=== PATIENT | female | born 1940 | race Caucasian/White ===

== ENCOUNTER → 2022-10-06 10:55 | Outpatient (CLI) | payer MEDICARE, SELFPAY ==
[2022-10-06 18:41] LABS: Alanine Aminotransferase 20 U/L (12-78); Albumin Level 4.3 g/dl (3.5-5.0); Albumin/Globulin Ratio 1.5 (1.1-1.8); Alkaline Phosphatase 57 U/L (38-126); Anion Gap 13.7 mEq/L (5-15); Aspartate Amino Transferase 30 U/L (14-36); Bilirubin,Total 0.4 mg/dl (0.2-1.3); Blood Urea Nitrogen 13 mg/dl (7-17); Calcium 9.2 mg/dl (8.4-10.2); Carbon Dioxide 30 mmol/L (22.0-30.0); Chloride 101 mmol/L (98-107); Chol/HDL Ratio 2.6 (1-3.5); Cholesterol 153 mg/dl (140-200); Estimated Glomerular Filt Rate 96 ml/min (>60); GFR (African American) 116 ML/MIN (>60); Globulin 2.8 g/dL (1.3-3.2); Glucose 90 mg/dl (74-100); HDL Cholesterol 58 mg/dl (40-60); Potassium 3.7 mmoL/L (3.5-5.1); Sodium 141 mmol/L (136-145); Total Protein,Serum 7.1 g/dl (6.3-8.2); Triglycerides 100 mg/dl (30-150); VLDL Cholesterol 20 mg/dL (0-40)
[2022-10-06 18:43] LABS: Creatinine,Urine Random 14 mg/dL (Not Estab.)
[2022-10-06 18:50] LABS: Microalbumin < 6.000 mg/L (0-16.7)
[2022-10-06 18:52] LABS: Basophils # 0.1 K/mm3 (0-0.2); Direct LDL Cholesterol 66.62 mg/dL (100-129); Eosinophils # 0.2 K/mm3 (0.0-0.4); Eosinophils % 4.6 % (0.1-12.0); Hematocrit 40.9 % (37.0-47.0); Lymphocytes # 1.1 K/mm3 (0.7-4.5); Mean Corpuscular HGB Conc 31.7 g/dL (31.8-35.4); Mean Corpuscular Hemoglobin 29.1 pg (27.0-31.2); Mean Corpuscular Volume 91.6 fl (81-99); Mean Platelet Volume 9.1 fl (7.4-10.4); Monocytes # 0.3 K/mm3 (0.1-1.0); Monocytes % 5.7 % (1.7-9.3); Neutrophils # 3.4 K/mm3 (1.8-7.8); Neutrophils % 66.6 % (37.0-80.0); Platelet Count 312 K/mm3 (142-424); Red Blood Count 4.47 M/mm3 (4.20-5.40); Red Cell Distribution Width 13.9 % (11.5-17.5); White Blood Count 5.1 K/mm3 (4.8-10.8)
[2022-10-06 18:58] LABS: 25-OH Vitamin D, Total 51.1 ng/mL (30-100)
[2022-10-06 19:13] LABS: Thyroid Stimulating Hormone 2.18 uIU/mL (0.465-4.68)
[2022-10-06 19:32] LABS: Vitamin B12 958 pg/mL (239-931)
== END ==
PROVIDERS: PCP Nurse Practitioner; Visit Provider Nurse Practitioner
DX: E78.5 Hyperlipidemia, unspecified (principal); I10 Essential (primary) hypertension; K21.9 Gastro-esophageal reflux disease without esophagitis; N32.81 Overactive bladder; M81.0 Age-related osteoporosis without current pathological fracture
CPT/HCPCS: 80053; 80061; 82043; 82306; 82570; 82607; 84443; 85025

== ENCOUNTER → 2022-11-13 21:02 | Outpatient (CLI) | payer MEDICARE, SELFPAY | PROVIDERS: PCP Nurse Practitioner; Visit Provider Nurse Practitioner | DX: N30.01 Acute cystitis with hematuria (principal) | CPT/HCPCS: 87086 ==

== ENCOUNTER → 2022-11-27 06:47 | Outpatient (CLI) | payer MEDICARE, SELFPAY | PROVIDERS: PCP Nurse Practitioner; Visit Provider Nurse Practitioner | DX: N30.01 Acute cystitis with hematuria (principal); B96.89 Other specified bacterial agents as the cause of diseases classified elsewhere | CPT/HCPCS: 87086; 87088; 87186 ==

== ENCOUNTER → 2022-12-04 23:27 | Outpatient (CLI) | payer MEDICARE, SELFPAY | PROVIDERS: PCP Nurse Practitioner; Visit Provider Nurse Practitioner | DX: N10 Acute pyelonephritis (principal); B96.89 Other specified bacterial agents as the cause of diseases classified elsewhere | CPT/HCPCS: 87086; 87088; 87186 ==

== ENCOUNTER → 2022-12-18 19:28 | Outpatient (CLI) | payer MEDICARE, SELFPAY | PROVIDERS: PCP Nurse Practitioner; Visit Provider Nurse Practitioner | DX: R30.0 Dysuria (principal) | CPT/HCPCS: 87086 ==

== ENCOUNTER 2022-12-26 09:43 | Emergency (ER) | payer MEDICARE, SELFPAY ==
[2022-12-26 10:00] VITALS: BP 199/87; PULSE 77; RESP 18; TEMP 36.8; O2SAT 97; BMI 20.9
--- NOTE | 2022-12-26 10:09 | EXP.UTC ---
Discharge Plan Disposition Patient Disposition: Home, Self-Care Condition: Good Prescriptions Prescriptions: New amoxicillin-pot clavulanate 875-125 mg Tablet 1 tab PO Q12H 7 Days Qty: 14 0RF No Action cetirizine 10 mg tablet 10 mg PO DAILY Qty: 30 5RF doxepin 6 mg tablet 6 mg PO HS PRN (Reason: sleep) Qty: 30 0RF lorazepam 0.5 mg tablet 0.5 mg PO TID PRN Rx Instructions: take 1 tab every 8 hours as needed for anxiety. losartan-hydrochlorothiazide 50-12.5 mg tablet 1 tab PO DAILY omeprazole 20 mg capsule,delayed release(DR/EC) 20 mg PO DAILY cholecalciferol (vitamin D3) 25 mcg (1,000 unit) capsule 25 mcg PO DAILY ascorbate calcium (vitamin C) 500 mg tablet 500 mg PO DAILY cranberry extract 500 mg tablet 500 mg PO DAILY Rx Instructions: administer with meals omega-3 fatty acids 500 mg capsule 500 mg PO DAILY aydgmroe-ghariuv-svhi-lutein Tablet 1 tab PO DAILY Digestive Advantage Advanced 10 billion cell capsule PO alendronate 70 mg tablet 70 mg PO WEEKLY Qty: 4 5RF Rx Instructions: on Wednesdays oxybutynin chloride 5 mg tablet extended release 24hr 5 mg PO DAILY Qty: 90 1RF atorvastatin 10 mg tablet See Rx Instructions .ROUTE .COMPLEX Qty: 90 0RF Dose Instruction: TAKE 1 TABLET BY MOUTH AT BEDTIME Rx Instructions: TAKE 1 TABLET BY MOUTH AT BEDTIME Referrals Follow up/Referrals: Sarah Dumont APRN [Primary Care Provider] - See instructions Activity Restrictions/Add. Instructions Additional Instructions/Restrictions: Make sure to follow up with Urology for further evaluation and treatment Start oral Augmentin tomorrow you got a shot today in the [facility] Return if needed Straight to ER if any life threatening symptoms Clinical Impressions Clinical Impression: UTI (urinary tract infection) Qualifiers: Urinary tract infection type: site unspecified Hematuria presence: without hematuria Qualified Code(s): N39.0 - Urinary tract infection, site not specified Instructions Patient Instructions: Urinary Tract Infection, DI for Urinary Tract Infection (UTI), Amoxicillin and Clavulanic Acid Discharge ED Provider: Sol Tejeda [facility] HPI General Stated complaint: trouble urinating Time Seen by Provider: 12/26/22 10:09 History of Present Illness Provider Complaint: Patient states that she has frequent UTI and bladder infections States that she has been having pressure like feeling like she has to go and frequency and urgency States that she feels like it did when she has a UTI so she came in Related Data Home Medications Medication Instructions Recorded Confirmed L.acidoph, paracasei,B. lactis 10 cell PO 10/06/22 12/18/22 billion cell capsule (Digestive Advantage Advanced Probiotic) ascorbate calcium (vitamin C) 500 500 mg PO DAILY 10/06/22 12/18/22 mg tablet cholecalciferol (vitamin D3) 25 25 mcg PO DAILY 10/06/22 12/18/22 mcg (1,000 unit) capsule cranberry extract 500 mg tablet 500 mg PO DAILY 10/06/22 12/18/22 lorazepam 0.5 mg tablet 0.5 mg PO TID PRN 10/06/22 12/18/22 losartan 50 mg-hydrochlorothiazide 1 tab PO DAILY 10/06/22 12/18/22 12.5 mg tablet znoktpgw-sndovwj-kokq-lutein tablet 1 tab PO DAILY 10/06/22 12/18/22 omega-3 fatty acids 500 mg capsule 500 mg PO DAILY 10/06/22 12/18/22 omeprazole 20 mg capsule,delayed 20 mg PO DAILY 10/06/22 12/18/22 release Previous Rx's Medication Instructions Recorded alendronate 70 mg tablet 70 mg PO WEEKLY #4 tabs 10/06/22 oxybutynin chloride 5 mg 5 mg PO DAILY #90 tabs 11/03/22 tablet,extended release 24 hr cetirizine 10 mg tablet 10 mg PO DAILY #30 tabs 12/18/22 doxepin 6 mg tablet 6 mg PO HS PRN sleep #30 tabs 12/18/22 atorvastatin 10 mg tablet See Rx Instructions .Route 12/24/22 .COMPLEX #90 tabs amoxicillin 875 mg-potassium 1 tab PO Q12H 7 days #14 tabs 12/26/22 clavulanate 125 mg tablet Allergies Allerg
[2022-12-26 10:21] LABS: Apearance,Urine Clear (Clear); Color,Urine Yellow (Yellow); PH,Urine 7.5 (5.0-8.5); Specific Gravity, Urine 1.015 (1.005-1.030)
[2022-12-26 10:22] LABS: Bilirubin,Urine Negative (Negative); Blood, Urine Negative (Negative); Glucose,Urine (UA) 100 (Negative); Ketones,Urine Negative (Negative); Protein,Urine Negative (Negative); UTC Leukocyte Esterase,Urine Negative (Negative); UTC Nitrate,Urine Positive (Negative); Urobilinogen,Urine 0.2 EU/dl (0.2)
[2022-12-26 10:39] VITALS: BP 199/87; PULSE 77; RESP 18; TEMP 36.8; O2SAT 97
== END 2022-12-26 10:52 | disposition home or self-care (01) ==
PROVIDERS: Emergency Provider Nurse Practitioner; PCP Nurse Practitioner
DX: N39.0 Urinary tract infection, site not specified (principal)
CPT/HCPCS: 96372; 81003; 87086; 99212; 99214; G0463; J0696

== ENCOUNTER → 2023-01-06 23:29 | Outpatient (CLI) | payer MEDICARE, SELFPAY | PROVIDERS: PCP Nurse Practitioner; Visit Provider Nurse Practitioner | DX: N39.0 Urinary tract infection, site not specified (principal) | CPT/HCPCS: 87086 ==

== ENCOUNTER → 2023-01-12 13:04 | Outpatient (CLI) | payer MEDICARE, SELFPAY ==
--- NOTE | 2023-01-12 13:04 | US_ITS ---
FINAL REPORT CLINICAL HISTORY: recurrent UTI FINDINGS: Sonographic images were obtained of the urinary bladder. The bladder has a normal configuration. The bladder measures 3.7 x 4.6 x 6.3 cm and volume is 55.8 mL. Ureteral jets are visualized. No masses are seen. IMPRESSION: Unremarkable urinary bladder. Reviewed, Interpreted and Dictated by Bakari Fagan III, MD Transcribed by Elaine Alexander Authenticated and [facility]
--- NOTE | 2023-01-12 13:04 | US_ITS ---
FINAL REPORT TECHNIQUE: Ultrasound images of the kidneys were obtained. CLINICAL HISTORY: .recurrent utis FINDINGS: US RETROPERITONEAL The right kidney measures 8.6 cm in length. It is normal in echogenicity. There is no hydronephrosis. The left kidney measures 8.8 cm in length. It is normal in echogenicity. There is no hydronephrosis. The spleen measures 8.5 cm in length and is unremarkable. IMPRESSION: Unremarkable exam. Reviewed, Interpreted and Dictated by Bakari Fagan III, MD Transcribed by Elaine Alexander Authenticated and . [facility]
== END ==
PROVIDERS: PCP Nurse Practitioner; Visit Provider Nurse Practitioner
DX: N39.0 Urinary tract infection, site not specified (principal)
CPT/HCPCS: 76770; 76857

== ENCOUNTER → 2023-01-19 18:49 | Outpatient (CLI) | payer MEDICARE, SELFPAY | PROVIDERS: PCP Nurse Practitioner; Visit Provider Nurse Practitioner | DX: R30.0 Dysuria (principal) | CPT/HCPCS: 87086 ==

== ENCOUNTER → 2023-02-02 09:17 | Outpatient (CLI) | payer MEDICARE, SELFPAY | PROVIDERS: PCP Nurse Practitioner; Visit Provider Nurse Practitioner | DX: R30.0 Dysuria (principal) | CPT/HCPCS: 87086 ==

== ENCOUNTER → 2023-02-11 23:33 | Outpatient (CLI) | payer MEDICARE, SELFPAY | PROVIDERS: PCP Nurse Practitioner; Visit Provider Nurse Practitioner | DX: R39.198 Other difficulties with micturition (principal); R41.3 Other amnesia; B96.29 Other Escherichia coli [E. coli] as the cause of diseases classified elsewhere | CPT/HCPCS: 87086; 87088; 87186 ==

== ENCOUNTER → 2023-02-26 20:36 | Outpatient (CLI) | payer MEDICARE, SELFPAY | PROVIDERS: PCP Nurse Practitioner; Visit Provider Nurse Practitioner | DX: R30.0 Dysuria (principal) | CPT/HCPCS: 87086 ==

== ENCOUNTER → 2023-03-17 10:49 | Outpatient (CLI) | payer MEDICARE, SELFPAY ==
[2023-03-17 11:23] LABS: Basophils % 0.6 % (0.1-2.0); Eosinophils # 0.1 K/mm3 (0.0-0.4); Eosinophils % 2.3 % (0.1-12.0); Hematocrit 39.6 % (37.0-47.0); Lymphocytes # 1.2 K/mm3 (0.7-4.5); Lymphocytes % 22.7 % (10-50); Mean Corpuscular HGB Conc 32.8 g/dL (31.8-35.4); Mean Corpuscular Hemoglobin 28.6 pg (27.0-31.2); Mean Corpuscular Volume 87.2 fl (81-99); Mean Platelet Volume 8.1 fl (7.4-10.4); Monocytes # 0.3 K/mm3 (0.1-1.0); Monocytes % 5.3 % (1.7-9.3); Neutrophils # 3.7 K/mm3 (1.8-7.8); Neutrophils % 69.1 % (37.0-80.0); Platelet Count 244 K/mm3 (142-424); Red Blood Count 4.54 M/mm3 (4.20-5.40); Red Cell Distribution Width 13.4 % (11.5-17.5); White Blood Count 5.4 K/mm3 (4.8-10.8)
[2023-03-17 12:02] LABS: Alanine Aminotransferase 18 U/L (12-78); Albumin Level 4.1 g/dl (3.5-5.0); Albumin/Globulin Ratio 1.5 (1.1-1.8); Alkaline Phosphatase 47 U/L (38-126); Anion Gap 13.8 mEq/L (5-15); Aspartate Amino Transferase 28 U/L (14-36); Bilirubin,Total 0.6 mg/dl (0.2-1.3); Blood Urea Nitrogen 18 mg/dl (7-17); Calcium 9.7 mg/dl (8.4-10.2); Carbon Dioxide 29 mmol/L (22.0-30.0); Chloride 100 mmol/L (98-107); Estimated Glomerular Filt Rate 96 ml/min (>60); GFR (African American) 116 ML/MIN (>60); Globulin 2.7 g/dL (1.3-3.2); Glucose 97 mg/dl (74-100); Potassium 3.8 mmoL/L (3.5-5.1); Sodium 139 mmol/L (136-145); Total Protein,Serum 6.8 g/dl (6.3-8.2)
[2023-03-17 12:34] LABS: Thyroid Stimulating Hormone 1.38 uIU/mL (0.465-4.68)
[2023-03-17 13:09] LABS: Folate > 20.00 ng/mL; Vitamin B12 > 1000 pg/mL (239-931)
[2023-03-18 11:55] LABS: Rapid Plasma Reagin Ab Titer Non Reactive (NonRea<1:1)
== END ==
PROVIDERS: PCP Nurse Practitioner; Visit Provider Nurse Practitioner Family
DX: R41.3 Other amnesia (principal)
CPT/HCPCS: 36415; 80053; 82607; 82746; 84443; 85025; 86593

== ENCOUNTER → 2023-03-30 11:55 | Outpatient (CLI) | payer MEDICARE, SELFPAY ==
--- NOTE | 2023-03-30 11:55 | MR_ITS ---
FINAL REPORT CLINICAL HISTORY: memory loss COMPARISON: None FINDINGS: Multiplanar MR imaging of the brain was performed without contrast. There is mild age-appropriate atrophy. There are scattered foci of increased T2 signal in the cerebral white matter that have a nonspecific appearance but likely represent severe chronic ischemic/gliotic changes. Demyelination and changes of vasculitis could have a similar appearance. There is no evidence of intracranial hemorrhage or mass. No abnormal ventricular dilatation is identified. No abnormal extra-axial fluid collection is seen. No abnormality is seen on the diffusion weighted images. The posterior fossa and brainstem are unremarkable. Normal major vessel vascular flow voids are seen. IMPRESSION: Age-appropriate atrophy and severe chronic ischemic/gliotic changes. No acute intracranial abnormality. Reviewed, Interpreted and Dictated by Bakari Fagan III, MD Transcribed by Anca Watters Authenticated and [facility]
== END ==
PROVIDERS: PCP Nurse Practitioner; Visit Provider Nurse Practitioner Family
DX: R41.3 Other amnesia (principal)
CPT/HCPCS: 70551

== ENCOUNTER → 2023-04-01 10:55 | Outpatient (CLI) | payer MEDICARE, SELFPAY | PROVIDERS: PCP Nurse Practitioner; Visit Provider Nurse Practitioner | DX: R30.0 Dysuria (principal) ==

== ENCOUNTER → 2023-04-17 08:47 | Outpatient (CLI) | payer MEDICARE, SELFPAY | PROVIDERS: PCP Nurse Practitioner; Visit Provider Nurse Practitioner Family | DX: R41.3 Other amnesia (principal); G47.8 Other sleep disorders | CPT/HCPCS: 94762 ==

== ENCOUNTER 2023-06-02 21:00 | Emergency (ER) | payer MEDICARE, SELFPAY ==
[2023-06-02] VITALS (9 sets, daily range): BP systolic 152–223; BP diastolic 77–124; PULSE 72–85; RESP 16–22; TEMP 36.6–36.9; O2SAT 96–100; BMI 20.9
--- NOTE | 2023-06-02 21:23 | XR_ITS ---
PROCEDURE INFORMATION: Exam: XR Chest Exam date and time: 06/02/2023 9:29 PM Age: 82 years old Clinical indication: Orthopnea (sob when lying down) and other: HTN; Additional info: HTN emergency TECHNIQUE: Imaging protocol: Radiologic exam of the chest. Views: 1 view. COMPARISON: No relevant prior studies available. FINDINGS: Lungs: There is a calcified granuloma projecting over the left lower lung. Pleural spaces: Unremarkable. No pleural effusion. No pneumothorax. Heart/Mediastinum: Unremarkable. No cardiomegaly. Bones/joints: Unremarkable. IMPRESSION: No dense parenchymal consolidation, pleural effusion, or pneumothorax.
--- NOTE | 2023-06-02 21:25 | HMH.EDGENADL ---
Discharge Plan Disposition Patient Disposition: Home, Self-Care Condition: Good Chief Complaint: Recheck/Abnormal Lab/Rx Prescriptions Prescriptions: No Action cetirizine 10 mg tablet 10 mg PO DAILY Qty: 30 5RF donepezil 5 mg tablet 5 mg PO DAILY Qty: 30 2RF mecobalamin (vitamin B12) 1,000 mcg tablet,chewable 1,000 mcg PO DAILY Centrum Silver Women 8 mg iron-400 mcg-300 mcg tablet 1 tab PO DAILY losartan-hydrochlorothiazide 50-12.5 mg tablet 1 tab PO DAILY omeprazole 20 mg capsule,delayed release(DR/EC) 20 mg PO DAILY cholecalciferol (vitamin D3) 25 mcg (1,000 unit) capsule 25 mcg PO DAILY ascorbate calcium (vitamin C) 500 mg tablet 500 mg PO DAILY cranberry extract 500 mg tablet 500 mg PO DAILY Rx Instructions: administer with meals lorazepam 0.5 mg tablet See Rx Instructions .ROUTE .COMPLEX PRN (Reason: anxiety) Qty: 45 3RF Rx Instructions: 1 during the day, 1-2 at bedtime prn sleep/anxiety oxybutynin chloride 5 mg tablet extended release 24hr 5 mg PO DAILY Qty: 90 1RF fluticasone propionate 50 mcg/actuation spray,suspension 1 spray intranasal DAILY Qty: 16 2RF Rx Instructions: administer into each nostril atorvastatin 10 mg tablet See Rx Instructions .ROUTE .COMPLEX Qty: 90 0RF Dose Instruction: TAKE 1 TABLET BY MOUTH AT BEDTIME Rx Instructions: TAKE 1 TABLET BY MOUTH AT BEDTIME Referrals Follow up/Referrals: Sarah Dumont APRN [Primary Care Provider] - See instructions Clinical Impressions Clinical Impression: Essential hypertension Instructions Patient Instructions: Essential Hypertension Discharge ED Provider: Carolina Hein General Adult HPI General Chief complaint: Recheck/Abnormal Lab/Rx Stated complaint: BP IS GOING UP AND DOWN Time Seen by Provider: 06/02/23 21:09 History of Present Illness HPI narrative: Patient has a PMHx significant for HTN who presents to the ED with uncontrolled hypertension. Patient notes that she has a history of hypertension and was previously on losartan hydrochlorothiazide 50/12.5 mg, but for the past year, she has been checking her blood pressure multiple times a day and she has always been normotensive, thus she has not taken any of her medications in over a year. Today, patient noted that she was checking her blood pressure and noted that her systolics were greater than 200. Patient checked her blood pressure every 30 minutes with no improvement, that she decided come to the ED. Patient describes any chest pain, shortness of breath, headache, vision changes. Patient notes that she has an appointment with her PCP tomorrow morning Related Data Home Medications Medication Instructions Recorded Confirmed ascorbate calcium (vitamin C) 500 500 mg PO DAILY 10/06/22 05/28/23 mg tablet cholecalciferol (vitamin D3) 25 25 mcg PO DAILY 10/06/22 05/28/23 mcg (1,000 unit) capsule cranberry extract 500 mg tablet 500 mg PO DAILY 10/06/22 05/28/23 losartan 50 mg-hydrochlorothiazide 1 tab PO DAILY 10/06/22 05/28/23 12.5 mg tablet omeprazole 20 mg capsule,delayed 20 mg PO DAILY 10/06/22 05/28/23 release mecobalamin (vitamin B12) 1,000 1,000 mcg PO DAILY 03/17/23 05/28/23 mcg chewable tablet odhklqee-vjlr-miwl 8 mg-folic 400 1 tab PO DAILY 03/17/23 05/28/23 mcg-K 50 mcg-lutein 300 mcg tablet (Centrum Silver Women) Previous Rx's Medication Instructions Recorded cetirizine 10 mg tablet 10 mg PO DAILY #30 tabs 12/18/22 donepezil 5 mg tablet 5 mg PO DAILY #30 tabs 02/02/23 atorvastatin 10 mg tablet See Rx Instructions .Route 04/01/23 .COMPLEX #90 tabs lorazepam 0.5 mg tablet See Rx Instructions .Route 04/03/23 .COMPLEX PRN anxiety #45 tabs fluticasone propionate 50 1 spray intranasal DAILY #16 grams 05/04/23 mcg/actuation nasal spray,suspension oxybutynin chloride 5 mg 5 mg PO DAILY #90 tabs 05/04/23 tablet,extended release 24 hr
--- NOTE | 2023-06-02 21:31 | ECG_ITS ---
APPROVED REPORT Exam: Resting ECG HR:68 bpm ECG Measurements Heart Rate [address] 188 P 38 QRSd 84 QRS 16 QT 389 T 63 QTc 407 Conclusion SINUS RHYTHM NORMAL ECG UNCONFIRMED REPORT Electronically signed by : Parvez Treviño MD 06/04/2023 20:04:32
[2023-06-02 21:37] LABS: Chloride 104 mmol/L (98-107); Potassium 3.8 mmoL/L (3.5-5.1); Sodium 140 mmol/L (136-145)
[2023-06-02 21:38] LABS: Basophils % 0.5 % (0.1-2.0); Eosinophils # 0.2 K/mm3 (0.0-0.4); Eosinophils % 2.3 % (0.1-12.0); Hematocrit 42.4 % (37.0-47.0); Hemoglobin 13.9 g/dL (12.2-16.2); Lymphocytes # 1.8 K/mm3 (0.7-4.5); Lymphocytes % 26.2 % (10-50); Mean Corpuscular HGB Conc 32.7 g/dL (31.8-35.4); Mean Corpuscular Hemoglobin 28.9 pg (27.0-31.2); Mean Corpuscular Volume 88.3 fl (81-99); Mean Platelet Volume 8.5 fl (7.4-10.4); Monocytes # 0.4 K/mm3 (0.1-1.0); Monocytes % 5.1 % (1.7-9.3); Neutrophils # 4.6 K/mm3 (1.8-7.8); Neutrophils % 65.9 % (37.0-80.0); Platelet Count 230 K/mm3 (142-424); Red Cell Distribution Width 13.6 % (11.5-17.5)
[2023-06-02 21:40] LABS: Alanine Aminotransferase 22 U/L (12-78); Albumin Level 4.4 g/dl (3.5-5.0); Albumin/Globulin Ratio 1.3 (1.1-1.8); Alkaline Phosphatase 51 U/L (38-126); Anion Gap 13.8 mEq/L (5-15); Aspartate Amino Transferase 33 U/L (14-36); Bilirubin,Total 0.4 mg/dl (0.2-1.3); Blood Urea Nitrogen 18 mg/dl (7-17); Carbon Dioxide 26 mmol/L (22.0-30.0); Creatinine Clearance Estimated 33 mL/min (50-200); Estimated Glomerular Filt Rate 96 ml/min (>60); GFR (African American) 116 ML/MIN (>60); Globulin 3.4 g/dL (1.3-3.2); Total Protein,Serum 7.8 g/dl (6.3-8.2)
[2023-06-02 21:41] LABS: Calcium 9.8 mg/dl (8.4-10.2); Glucose 101 mg/dl (74-100)
[2023-06-02 21:48] LABS: Appearance,Urine CLEAR (Clear); Bilirubin,Urine Negative (Negative); Blood, Urine 1+ (Negative); Glucose,Urine (UA) Negative (Negative); Ketones,Urine Negative (Negative); Leukocyte Esterase,Urine TRACE (Negative); Microscopic, Urine URINE MICROSCOPIC (MICROSCOPIC); Nitrate,Urine Negative (Negative); PH,Urine 6.5 (5.0-8.5); Protein,Urine Negative (Negative); Urobilinogen,Urine 0.2 EU/dl (0.2)
[2023-06-02 21:50] LABS: Color,Urine Straw (Yellow)
[2023-06-02 21:53] LABS: Troponin I < 0.01 ng/ml (0.00-0.034)
[2023-06-02 22:00] LABS: RBC,Urine Occasional #/hpf (0-3); Squamous Epithelial Cell,Urine Occasional #/hpf (0-5); WBC,Urine Occasional #/hpf (0-3)
== END 2023-06-02 22:58 | disposition home or self-care (01) ==
PROVIDERS: Emergency Provider Emergency Medicine; PCP Nurse Practitioner
DX: I10 Essential (primary) hypertension (principal); E78.5 Hyperlipidemia, unspecified; K21.9 Gastro-esophageal reflux disease without esophagitis; M81.8 Other osteoporosis without current pathological fracture
CPT/HCPCS: 71045; 80053; 81001; 84484; 85025; 93005; 96374; 99285

== ENCOUNTER → 2023-06-17 10:40 | Outpatient (CLI) | payer MEDICARE, SELFPAY | PROVIDERS: PCP Nurse Practitioner; Visit Provider Nurse Practitioner Family | DX: G47.8 Other sleep disorders; R41.3 Other amnesia; G47.30 Sleep apnea, unspecified; R06.83 Snoring | CPT/HCPCS: G0399 ==

== ENCOUNTER → 2023-07-08 10:11 | Outpatient (CLI) | payer MEDICARE, SELFPAY ==
[2023-07-08 18:48] LABS: Anion Gap 12.3 mEq/L (5-15); Blood Urea Nitrogen 18 mg/dl (7-17); Calcium 9.4 mg/dl (8.4-10.2); Carbon Dioxide 31 mmol/L (22.0-30.0); Chloride 97 mmol/L (98-107); Chol/HDL Ratio 2.4 (1-3.5); Cholesterol 171 mg/dl (140-200); Estimated Glomerular Filt Rate 80 ml/min (>60); GFR (African American) 97 ML/MIN (>60); Glucose 100 mg/dl (74-100); HDL Cholesterol 72 mg/dl (40-60); Potassium 3.3 mmoL/L (3.5-5.1); Sodium 137 mmol/L (136-145); Triglycerides 110 mg/dl (30-150); VLDL Cholesterol 22 mg/dL (0-40)
[2023-07-08 18:58] LABS: Direct LDL Cholesterol 75.32 mg/dL (100-129)
[2023-07-08 22:40] LABS: Hemoglobin A1C 5.8 % (4.0-6.0)
== END ==
PROVIDERS: PCP Nurse Practitioner; Visit Provider Nurse Practitioner
DX: E78.5 Hyperlipidemia, unspecified (principal); R73.01 Impaired fasting glucose
CPT/HCPCS: 80048; 80061; 83036

== ENCOUNTER → 2023-07-09 23:22 | Outpatient (CLI) | payer MEDICARE, SELFPAY | PROVIDERS: PCP Nurse Practitioner; Visit Provider Nurse Practitioner | DX: M54.9 Dorsalgia, unspecified (principal) | CPT/HCPCS: 87086 ==

== ENCOUNTER → 2023-08-05 23:05 | Outpatient (CLI) | payer MEDICARE, SELFPAY | PROVIDERS: PCP Nurse Practitioner; Visit Provider Nurse Practitioner | DX: R30.9 Painful micturition, unspecified (principal) | CPT/HCPCS: 87086 ==

== ENCOUNTER → 2023-08-25 07:20 | Outpatient (CLI) | payer MEDICARE, SELFPAY | PROVIDERS: PCP Family Medicine; Visit Provider Family Medicine | DX: N39.0 Urinary tract infection, site not specified (principal); B96.89 Other specified bacterial agents as the cause of diseases classified elsewhere | CPT/HCPCS: 87086 ==

== ENCOUNTER 2023-10-25 10:11 | Emergency (ER) | payer MEDICARE, SELFPAY ==
[2023-10-25 10:13] VITALS: BP 170/79; PULSE 74; RESP 16; TEMP 36.8; O2SAT 100; BMI 20.6
--- NOTE | 2023-10-25 10:17 | PC.NURSE ---
DR CHANDLER AT BEDSIDE
--- NOTE | 2023-10-25 10:27 | HMH.EDGENADL ---
Discharge Plan Disposition Patient Disposition: Home, Self-Care Condition: Good Prescriptions Prescriptions: No Action Centrum Silver Women 8 mg iron-400 mcg-300 mcg tablet 1 tab PO DAILY estradiol [Estrace] 0.01 % (0.1 mg/gram) cream 1 appful vaginal HS Qty: 42.5 2RF Rx Instructions: insert a blueberry sized amount into the vagina twice weekly omeprazole 20 mg capsule,delayed release(DR/EC) 20 mg PO DAILY cholecalciferol (vitamin D3) 25 mcg (1,000 unit) capsule 25 mcg PO DAILY cranberry extract 500 mg tablet 500 mg PO DAILY Rx Instructions: administer with meals oxybutynin chloride 5 mg tablet extended release 24hr 5 mg PO DAILY Qty: 90 1RF mupirocin 2 % ointment 1 applic topical TID Qty: 15 0RF sulfamethoxazole-trimethoprim [Bactrim DS] 800-160 mg tablet 1 tab PO BID Qty: 14 0RF atorvastatin 10 mg tablet See Rx Instructions .ROUTE .COMPLEX Qty: 90 1RF Dose Instruction: TAKE 1 TABLET BY MOUTH AT BEDTIME Rx Instructions: TAKE 1 TABLET BY MOUTH AT BEDTIME lorazepam 0.5 mg tablet See Rx Instructions .ROUTE .COMPLEX PRN (Reason: anxiety) Qty: 45 3RF Rx Instructions: 1 during the day, 1-2 at bedtime prn sleep/anxiety losartan-hydrochlorothiazide 50-12.5 mg tablet See Rx Instructions .ROUTE .COMPLEX Qty: 30 0RF Dose Instruction: Take 1 Tablet by mouth once daily. Rx Instructions: Take 1 Tablet by mouth once daily. Referrals Follow up/Referrals: Sarah Dumont APRN [Primary Care Provider] - See instructions Activity Restrictions/Add. Instructions Additional Instructions/Restrictions: You were evaluated in the ER today. You are appropriate for discharge at this time. Continue drinking plenty of water. Continue using the ointment in the right ear 2-3 times a day until you follow-up with your primary care physician in 2 days. Try taking a probiotic or eating yogurt to help balance your good gut bacteria and help with your mild diarrhea. You can continue to take Benadryl, however I would recommend taking Zyrtec instead. Benadryl can cause hallucinations. Make sure you are using a good lotion on your face to prevent dry skin. Follow-up with Dr. Turpin in 2 days as scheduled. Return to the ER with any new, worsening, or otherwise concerning symptoms as discussed. Clinical Impressions Clinical Impression: Dry skin dermatitis, Contact dermatitis Discharge ED Provider: Baldev Hernandez General Adult HPI General Chief complaint: Eye Problems Stated complaint: interier Right ear spot right eye irritation Time Seen by Provider: 10/25/23 10:25 History of Present Illness HPI narrative: This 82-year-old female presents to the ER with concerns of a spot in the right ear and itching under the right eye. Patient states she saw her primary care physician for concerns of the right ear lesion and was placed on Bactrim and mupirocin ointment. Since being on the Bactrim she has had mild diarrhea for the last 3 to 4 days. Nonbloody, nonmelanotic. She does not have any abdominal pain, continues eating and drinking normally, and making normal urine. She states she does not feel dehydrated. Patient has completed the Bactrim and been using the mupirocin ointment as directed. Her states the lesion in her ear is improving. She states she now has a little bit of itching under her right eye and took Benadryl for it. They think maybe she was bitten by a spider. Patient has follow-up with Dr. Turpin in 2 days. No other complaints or concerns at this time. Related Data Home Medications Medication Instructions Recorded Confirmed cholecalciferol (vitamin D3) 25 25 mcg PO DAILY 10/06/22 10/15/23 mcg (1,000 unit) capsule cranberry extract 500 mg tablet 500 mg PO DAILY 10/06/22 10/15/23 omeprazole 20 mg capsule,delayed 20 mg PO DAILY 10/06/22 10/15/23 release lmtmvtwg-ckrb-xanz 8 mg-folic 400 1 tab PO DAILY 03/17/23 10/15/23 mcg-K 50 mcg-lutein 300 mcg tablet (Centrum Silver Women) Previous Rx's Medication Instructions Recorded oxybutynin chloride 5 mg 5 mg PO DAILY #90 tabs 05/04/23 tablet,extended release 24 hr atorvastatin 10 mg tablet See Rx Instructions .Route 09/16/23 .COMPLEX #90 tabs lorazepam 0.5 mg tablet See Rx Instructions .Route 09/18/23 .COMPLEX PRN anxiety #45 tabs estradiol 0.01% (0.1 mg/gram) 1 appful vaginal HS #42.5 grams 09/30/23 vaginal cream (Estrace) losartan 50 mg-hydrochlorothiazide See Rx Instructions .Route 09/30/23 12.5 mg tablet .COMPLEX #30 tabs mupirocin 2 % topical ointment 1 applic topical TID #15 grams 10/05/23 sulfamethoxazole 800 1 tab PO BID #14 tabs 10/15/23 mg-trimethoprim 160 mg tablet (Bactrim DS) Allergies Allergy/AdvReac Type Severity Reaction Status Date / Time No Known Allergies Allergy Verified 10/15/23 09:44 [facility] Disclaimer: The information contained in this section may have been updated after the patient was seen, as this information can be updated by other users. Medical History Allergic rhinitis Anxiety Bladder prolapse, female, acquired Broken hip Dysuria Essential hypertension GERD (gastroesophageal reflux disease) Hyperlipidemia IFG (impaired fasting glucose) Insomnia Memory changes Osteoporosis Recurrent UTI Surgical History History of hysterectomy Family History Son Cancer Social History Smoking Status: Never smoker alcohol intake: never substance use type: denies use current occupational status: retired Travel in the last 8 weeks: None household members: spouse housing: house lives independently: Yes marital status: number of children: 4 number of grandchildren: 6 ROS Obtained: Yes All systems reviewed & no additional complaints except as documented Constitutional Constitutional: Denies chills, Denies fever(s), Denies headache(s) and Denies weakness Eyes Eyes: Denies change in vision, Denies eye discharge and Denies itchy eyes Comments: Itching under the right eye without eye pain, eye itchiness, eye discharge, or vision changes ENT Ears, Nose, Mouth, and Throat: Denies dizziness, Denies headache(s), Denies nasal congestion and Denies sore throat Cardiovascular Cardiovascular: Denies chest pain, Denies dyspnea and Denies leg edema Respiratory Respiratory: Denies cough and Denies dyspnea Gastrointestinal Gastrointestingal: Reports diarrhea (Mild, nonbloody, nonmelanotic); Denies constipation, nausea or vomiting Genitourinary Female Genitourinary: Denies dysuria Musculoskeletal Musculoskeletal: Denies arthralgias, Denies myalgias, Denies numbness and Denies tingling Integumentary/Breasts Skin/Breast: Denies change in pigmentation, Reports dry skin and Reports redness Comments: Area of redness and dryness in the right ear that is mildly itchy, not painful Neurologic Neurologic: Denies dizziness, Denies headache(s), Denies numbness, Denies tingling and Denies weakness Allergic/Immunologic Allergic/Immunologic: Denies itchy eyes Physical Exam General General appearance: alert and in no apparent distress Head Head exam: atraumatic and normocephalic Eye Eye exam: Present PERRL, EOMI and other (No lesions under the right eye, no swelling or erythema, mildly dry skin present. Fluorescein stain of right eye is normal) ENT ENT exam: Present mucous membranes moist and other (Small erythematous area on the binh of the right ear with dry, scabbing lesion. It is nontender, not fluctuant, right TM normal, ear canal normal.) Neck Neck exam: Present normal inspection and full ROM Chest Chest inspection: Present symmetric chest wall rise Respiratory Respiratory exam: Absent respiratory distress or stridor Cardiovascular Cardiovascular exam: Present regular rate and normal rhythm Abdominal Exam Abdominal exam: Present soft; Absent distention or tenderness Extremities Exam Extremities exam: Present full ROM Neurological Exam Neurological exam: Present alert and oriented X3; Absent motor sensory deficit Psychiatric Psychiatric exam: Present normal affect and normal mood Skin Skin exam: Present warm and dry Medical Decision Making Gavin Inquiry Pt receiving controlled substance: No Vital Signs: 10/25/23 10:13 Temperature 98.3 F Temperature Source Oral Pulse Rate [Radial] 74 Respiratory Rate 16 Blood Pressure [Right Arm] 170/79 H Blood Pressure Mean [Right Arm] 109 Blood Pressure Source [Right Arm] Automatic Cuff Blood Pressure Position [Right Arm] Sitting 02 Sat by Pulse Oximetry 100 Oxygen Delivery Method Room Air Medical Decision Narrative: In summary, this 82year old female presents to the emergency department today with dry skin, itching, red spot. She also mentions that since being on antibiotics she has had mild diarrhea. On initial evaluation patient is hemodynamically stable, afebrile, exam only notable for mild area of erythema and dry skin in the right ear, no other abnormalities appreciated on exam. I considered a broad differential including HSV lesions given patient does have a history of prior cold sores however she does not have any vesicular lesions in the right ear, there are no abnormalities of the right tympanic membrane, no [place] lesion on the nose, no lesions in the right eye and fluorescein stain. I also considered contact dermatitis or insect bite however I do not visualize an obvious bite. Patient does have dry skin. Her symptoms seem to be improving compared to prior and she has close follow-up with her primary care physician. I believe she does not require any further workup for her skin complaints at this time. Regarding her diarrhea I believe this is most likely antibiotic related given she has no abdominal pain, nonfocal abdominal exam, and continues to tolerate oral intake with ease. Her vitals are also stable. I encouraged her to try a probiotic or yogurt and continue drinking plenty of water. She appears well-hydrated and I do not believe she requires any further workup at this time given her well-appearing appearance. Patient does not require any further prescriptions at this time. I did encourage her to continue using the mupirocin cream until she is seen by Dr. Turpin again. Patient was given instructions on symptomatic management, follow up instructions, and return precautions for the emergency department. Patient indicated understanding and was discharged in stable condition. Critical Care Critical Care Time Critical Care Time: No
[2023-10-25 10:42] VITALS: BP 170/79; PULSE 74; RESP 16; TEMP 36.8; O2SAT 100
== END 2023-10-25 10:43 | disposition home or self-care (01) ==
PROVIDERS: Emergency Provider Emergency Medicine; PCP Nurse Practitioner
DX: L25.9 Unspecified contact dermatitis, unspecified cause (principal); R19.7 Diarrhea, unspecified; I10 Essential (primary) hypertension; K21.9 Gastro-esophageal reflux disease without esophagitis; E78.5 Hyperlipidemia, unspecified; M81.8 Other osteoporosis without current pathological fracture
CPT/HCPCS: 99282

== ENCOUNTER 2023-10-27 19:25 | Outpatient (CLI) | payer MEDICARE, SELFPAY ==
[2023-10-27 18:39] LABS: Chloride 102 mmol/L (98-107); Potassium 3.9 mmoL/L (3.5-5.1); Sodium 137 mmol/L (136-145)
[2023-10-27 18:41] LABS: Alanine Aminotransferase 19 U/L (12-78); Aspartate Amino Transferase 28 U/L (14-36); Blood Urea Nitrogen 17 mg/dl (7-17); Estimated Glomerular Filt Rate 96 ml/min (>60); GFR (African American) 116 ML/MIN (>60)
[2023-10-27 18:42] LABS: Albumin/Globulin Ratio 1.4 (1.1-1.8); Alkaline Phosphatase 42 U/L (38-126); Anion Gap 8.9 mEq/L (5-15); Bilirubin,Total 0.5 mg/dl (0.2-1.3); Calcium 9.3 mg/dl (8.4-10.2); Carbon Dioxide 30 mmol/L (22.0-30.0); Globulin 2.8 g/dL (1.3-3.2); Glucose 99 mg/dl (74-100); Total Protein,Serum 6.8 g/dl (6.3-8.2)
== END 2023-10-27 23:59 ==
LOC: LAB.DROPOF 19:26
PROVIDERS: PCP Family Medicine; Visit Provider Family Medicine
DX: E87.6 Hypokalemia (principal)
CPT/HCPCS: 80053

== ENCOUNTER 2023-12-31 09:38 | Observation (INO) | payer MEDICARE, SELFPAY ==
[2023-12-31] VITALS (14 sets, daily range): BP systolic 146–188; BP diastolic 72–89; PULSE 61–80; RESP 16–18; TEMP 36.6–36.7; O2SAT 95–99; BMI 20.2; BMI 19.6
--- NOTE | 2023-12-31 09:44 | ECG_ITS ---
APPROVED REPORT Exam: Resting ECG HR:68 bpm ECG Measurements Heart Rate 68 AXES MS 168 P 10 QRSd 81 QRS 18 QT 376 T 48 QTc 393 Conclusion SINUS RHYTHM MINIMAL ST DEPRESSION [0.025+ mV ST DEPRESSION] BORDERLINE ECG Electronically signed by : HENRIQUE MERCER, 12/31/2023 15:22:10
--- NOTE | 2023-12-31 10:29 | CT_ITS ---
FINAL REPORT TECHNIQUE: Thin section axial CT with IV contrast supplemented with multiplanar reconstruction under CT angiogram protocol. This study was performed with techniques to keep radiation doses as low as reasonably achievable (ALARA). Individualized dose reduction techniques using automated exposure control or adjustment of mA and/or kV according to the patient''s size were employed. NASCET criteria was utilized during interpretation. CLINICAL HISTORY: acute L arm weakness and uncoordination, stroke protocol FINDINGS: Aortic arch: Arch shows no significant narrowing. Great vessel origins are widely patent. Right carotid: No significant stenosis is seen of the cervical common or internal carotid artery. Left carotid: No significant stenosis is seen of the cervical common or internal carotid artery. Vertebral: Left vertebral artery is dominant. No significant stenosis is present. IMPRESSION: No significant carotid artery stenosis. Reviewed, Interpreted and Dictated by Bakari Fagan III, MD Transcribed by Livia Simeon Authenticated and [facility]
--- NOTE | 2023-12-31 10:29 | CT_ITS ---
FINAL REPORT TECHNIQUE: Thin section axial CT with IV contrast supplemented with multiplanar reconstruction under CT angiogram protocol. 3-D reconstructions were performed. This study was performed with techniques to keep radiation doses as low as reasonably achievable (ALARA). Individualized dose reduction techniques using automated exposure control or adjustment of mA and/or kV according to the patient''s size were employed. CLINICAL HISTORY: acute L arm weakness and uncoordination, stroke protocol FINDINGS: The distal vertebral, basilar and distal internal carotid arteries have an unremarkable appearance. No aneurysm is seen. Major intracranial vessels are patent without significant stenosis. Reviewed, Interpreted and Dictated by Bakari Fagan III, MD Transcribed by Livia Simeon Authenticated and [facility]
--- NOTE | 2023-12-31 10:29 | CT_ITS ---
FINAL REPORT CLINICAL HISTORY: acute L arm weakness and uncoordination FINDINGS: Axial images of the head were obtained without contrast. Coronal reformatted images were also obtained. This study was performed with techniques to keep radiation doses as low as reasonably achievable (ALARA). Individualized dose reduction techniques using automated exposure control or adjustment of mA and/or kV according to the patient's size were employed. There is generalized age-appropriate atrophy. Periventricular low-attenuation areas are seen consistent with mild chronic ischemic changes. There is no evidence of intracranial hemorrhage or mass. There is no evidence of acute infarct. There is no evidence of shift of the midline structures. No skull abnormality is seen on the bone window images. IMPRESSION: Atrophy and mild periventricular chronic ischemic changes. No acute intracranial abnormality identified. Reviewed, Interpreted and Dictated by Bakari Fagan III, MD Transcribed by Livia Simeon Authenticated and [facility]
--- NOTE | 2023-12-31 10:31 | HMH.EDGENADL ---
Discharge Plan Disposition Patient Disposition: Home, Self-Care Chief Complaint: Weakness Prescriptions Prescriptions: No Action Centrum Silver Women 8 mg iron-400 mcg-300 mcg tablet 1 tab PO DAILY estradiol [Estrace] 0.01 % (0.1 mg/gram) cream 1 appful vaginal HS Qty: 42.5 2RF Rx Instructions: insert a blueberry sized amount into the vagina twice weekly lorazepam 0.5 mg tablet 0.5 mg PO DAILY PRN (Reason: anxiety) Qty: 30 2RF omeprazole 20 mg capsule,delayed release(DR/EC) 20 mg PO DAILY cholecalciferol (vitamin D3) 25 mcg (1,000 unit) capsule 25 mcg PO DAILY cranberry extract 500 mg tablet 500 mg PO DAILY Rx Instructions: administer with meals potassium chloride 10 mEq tablet,ER particles/crystals 10 meq PO DAILY Qty: 30 3RF mupirocin 2 % ointment 1 applic topical TID Qty: 15 0RF mirtazapine 7.5 mg tablet 7.5 mg PO HS Qty: 30 2RF atorvastatin 10 mg tablet See Rx Instructions .ROUTE .COMPLEX Qty: 90 1RF Dose Instruction: TAKE 1 TABLET BY MOUTH AT BEDTIME Rx Instructions: TAKE 1 TABLET BY MOUTH AT BEDTIME losartan-hydrochlorothiazide 50-12.5 mg tablet See Rx Instructions .ROUTE .COMPLEX Qty: 30 0RF Dose Instruction: Take 1 Tablet by mouth once daily. Rx Instructions: Take 1 Tablet by mouth once daily. Referrals Follow up/Referrals: Hemant Dominguez MD [Primary Care Provider] - See instructions Clinical Impressions Clinical Impression: Discoordination, Weakness Discharge ED Provider: Jose Hodges General Adult HPI General Chief complaint: Weakness Stated complaint: left arm numb Time Seen by Provider: 12/31/23 09:40 Mode of Arrival: Ambulatory Source of Information: Patient Limitations: No Limitations Description of Symptoms (Recalled from ER Triage Doc. 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 Last known normal 9 PM last night. Patient awoke this morning and had weakness of her left upper extremity with altered coordination. No difficulty in ambulation or lower extremity symptoms, no difficulty with speech, no vision symptoms. Due to persistent symptoms she presents here for continued evaluation. Patient sleeps on her right side at baseline. Of note patient was started on mirtazapine a few days ago and had visual blurriness that was transient for which she only took 1 dose and has not taken a dose today or last night. Related Data Home Medications Medication Instructions Recorded Confirmed cholecalciferol (vitamin D3) 25 25 mcg PO DAILY 10/06/22 12/25/23 mcg (1,000 unit) capsule cranberry extract 500 mg tablet 500 mg PO DAILY 10/06/22 12/25/23 omeprazole 20 mg capsule,delayed 20 mg PO DAILY 10/06/22 12/25/23 release [id number] 8 mg-folic 400 1 tab PO DAILY 03/17/23 12/25/23 mcg-K 50 mcg-lutein 300 mcg tablet (Centrum Silver Women) Previous Rx's Medication Instructions Recorded atorvastatin 10 mg tablet See Rx Instructions .Route 09/16/23 .COMPLEX #90 tabs estradiol 0.01% (0.1 mg/gram) 1 appful vaginal HS #42.5 grams 09/30/23 vaginal cream (Estrace) mupirocin 2 % topical ointment 1 applic topical TID #15 grams 10/05/23 potassium chloride 10 mEq 10 meq PO DAILY #30 tabs 10/27/23 tablet,extended release(part/cryst) losartan 50 mg-hydrochlorothiazide See Rx Instructions .Route 12/03/23 12.5 mg tablet .COMPLEX #30 tabs lorazepam 0.5 mg tablet 0.5 mg PO DAILY PRN anxiety #30 12/08/23 tabs mirtazapine 7.5 mg tablet 7.5 mg PO HS #30 tabs 12/25/23 Allergies Allergy/AdvReac Type Severity Reaction Status Date / Time acetaminophen Allergy Mild Verified 12/31/23 10:08 [From Tylenol-Codeine #3] ciprofloxacin [From Cipro] Allergy Mild Verified 12/31/23 10:08 codeine Allergy Mild Verified 12/31/23 10:08 [From Tylenol-Codeine #3] cyclobenzaprine Allergy Mild Verified 12/31/23 10:08 [From Flexeril] doxycycline Allergy Mild Verified 12/31/23 10:08 erythromycin base Allergy Mild Verified 12/31/23 10:08 hydrocodone Allergy Mild Verified 12/31/23 10:08 loratadine [From Claritin] Allergy Mild Verified 12/31/23 10:08 oxycodone [From Roxicet] Allergy Mild Verified 12/31/23 10:08 PFSH PFS Disclaimer: The information contained in this section may have been updated after the patient was seen, as this information can be updated by other users. Medical History Hypokalemia Cellulitis of right pinna Bladder prolapse, female, acquired Dysuria IFG (impaired fasting glucose) Memory changes Recurrent UTI Allergic rhinitis Insomnia Anxiety Osteoporosis GERD (gastroesophageal reflux disease) Essential hypertension Hyperlipidemia Broken hip Surgical History History of hysterectomy Family History Son Cancer Social History Smoking Status: Never smoker alcohol intake: never substance use type: denies use current occupational status: retired Travel in the last 8 weeks: None household members: spouse housing: house lives independently: Yes marital status: number of children: 4 number of grandchildren: 6 ROS Obtained: Yes Systems reviewed as appropriate & no additional complaints except as documented Physical Exam General General appearance: alert and in no apparent distress Head Head exam: atraumatic and normocephalic Eye Eye exam: Present PERRL and EOMI ENT ENT exam: Present mucous membranes moist Neck Neck exam: Present normal inspection Chest Chest inspection: Present normal inspection and symmetric chest wall rise Respiratory Respiratory exam: Present normal lung sounds bilaterally; Absent respiratory distress Cardiovascular Cardiovascular exam: Present regular rate and normal rhythm Abdominal Exam Abdominal exam: Present soft; Absent tenderness Extremities Exam Extremities exam: Present normal inspection Neurological Exam Neurological exam: Present alert and CN II-XII intact; Absent motor sensory deficit (4 out of 5 strength flexion at the elbow and shoulder of the left upper extremity. Dicogv-wu-zohz not intact on the left.) Psychiatric Psychiatric exam: Present normal affect Skin Skin exam: Present warm and dry Medical Decision Making Gavin Inquiry Pt receiving controlled substance: No Vital Signs: 12/31/23 09:39 12/31/23 09:49 12/31/23 10:00 Temperature 98.0 F Temperature Source Oral Pulse Rate 66 65 Pulse Rate [Left Radial] 74 Respiratory Rate 16 Blood Pressure 188/86 H 152/89 H Blood Pressure [Right Arm] 184/87 H Blood Pressure Mean Blood Pressure Mean [Right Arm] 119 Blood Pressure Source [Right Arm] Automatic Cuff Blood Pressure Position [Right Arm] Sitting 02 Sat by Pulse Oximetry 99 98 98 Oxygen Delivery Method Room Air 12/31/23 10:30 12/31/23 11:00 12/31/23 11:30 Temperature Temperature Source Pulse Rate 77 73 61 Pulse Rate [Left Radial] Respiratory Rate Blood Pressure 171/86 H 182/77 H 181/73 H Blood Pressure [Right Arm] Blood Pressure Mean 95 93 109 Blood Pressure Mean [Right Arm] Blood Pressure Source [Right Arm] Blood Pressure Position [Right Arm] 02 Sat by Pulse Oximetry 98 99 97 Oxygen Delivery Method Lab Data Lab Results 12/31/23 10:11: WBC 4.2 L, RBC 4.27, Hgb 13.3, Hct 40.4, MCV 94.6, MCH 31.1, MCHC 32.8, RDW 13.9, Plt Count 210, MPV 7.4, Neut % (Auto) 64.4, Lymph % (Auto) 25.0, [place] % (Auto) 6.6, Eos % (Auto) 2.6, Baso % (Auto) 1.4, Neut # (Auto) 2.7, Lymph # (Auto) 1.0, [place] # (Auto) 0.3, Eos # (Auto) 0.1, Baso # (Auto) 0.1, Sodium 139, Potassium 3.8, Chloride 106, Carbon Dioxide 29, Anion Gap 7.8, BUN 19 H, Creatinine 0.70, Estimated Creat Clear 31, Estimated GFR 80, Est GFR ( Amer) 97, Glucose 101 H, Calcium 9.4, Magnesium 2.1, Total Bilirubin 0.5, AST 29, ALT 17, Alkaline Phosphatase 40, Total Protein 6.8, Albumin 3.9, Globulin 2.9, Albumin/Globulin Ratio 1.3 12/31/23 10:11 12/31/23 10:11 Orders (Tests/Meds): ED MEDICATIONS Discontinued Medications Generic Name Dose Route Start Last Admin Trade Name Daniel PRN Reason Stop Dose Admin Iopamidol 100 ml 12/31/23 10:52 12/31/23 10:53 Iopamidol-370 (76%);100ml Bottle IV 12/31/23 10:53 100 ml ONCE ONE Administration Sodium Chloride 50 ml 12/31/23 10:52 12/31/23 10:53 0.9 % Sodium Chloride 50 Ml Vial IV 12/31/23 10:53 50 ml ONCE ONE Administration Sodium Chloride 10 ml 12/31/23 10:52 12/31/23 10:53 Sodium Chloride 0.9% 10ml Syr (Rad Only) IV 12/31/23 10:53 10 ml ONCE ONE Administration ORDERS Category Date Time Status CT angio head Stat Cat Scan 12/31/23 10:[address] angio neck Stat Cat Scan 12/31/23 10:[address] head/brain wo con Stat Cat Scan 12/31/23 10:29 Completed CBC w/Auto Diff [Complete Blood Count Auto Diff] Stat Lab 12/31/23 10:11 Completed CMP [Comprehensive Metabolic Panel] Stat Lab 12/31/23 10:11 Completed Magnesium Stat Lab 12/31/23 10:11 Completed UA [Urinalysis and Microscopic] Stat Lab 12/31/23 12:14 Ordered EKG Request [ECG Request] Stat Y 12/31/23 10:29 Ordered ECG Data Tracing #1: Independently interpreted by me, rate is 68, rhythm is regular, axis is normal, no ST elevation in anatomical contiguous leads, QTc 393. Medical Decision Narrative: In summary patient is a 83-year-old female with past medical history described above who presents emergency department for evaluation of weakness of her left arm. Last known normal 9 PM. Differential includes CVA, among others. Workup will be conducted with hematologic labs, stroke protocol CT imaging. Fingerstick at bedside is normal. Workup reviewed by me, hematologic labs are nonactionable. CT imaging shows no acute intracranial abnormality, no LVO. Given this patient will benefit from inpatient stroke evaluation. The case was discussed with hospital medicine who admit the patient their service for continued evaluation at this time. They recommend ordering urinalysis which was ordered and pending at time of admission. Critical Care Critical Care Time Critical Care Time: No
[2023-12-31 10:38] LABS: Basophils # 0.1 K/mm3 (0-0.2); Basophils % 1.4 % (0.1-2.0); Eosinophils # 0.1 K/mm3 (0.0-0.4); Eosinophils % 2.6 % (0.1-12.0); Hematocrit 40.4 % (37.0-47.0); Hemoglobin 13.3 g/dL (12.2-16.2); Mean Corpuscular HGB Conc 32.8 g/dL (31.8-35.4); Mean Corpuscular Hemoglobin 31.1 pg (27.0-31.2); Mean Corpuscular Volume 94.6 fl (81-99); Mean Platelet Volume 7.4 fl (7.4-10.4); Monocytes # 0.3 K/mm3 (0.1-1.0); Monocytes % 6.6 % (1.7-9.3); Neutrophils # 2.7 K/mm3 (1.8-7.8); Neutrophils % 64.4 % (37.0-80.0); Platelet Count 210 K/mm3 (142-424); Red Blood Count 4.27 M/mm3 (4.20-5.40); Red Cell Distribution Width 13.9 % (11.5-17.5); White Blood Count 4.2 K/mm3 (4.8-10.8)
--- NOTE | 2023-12-31 10:40 | PC.NURSE ---
pt to CT by WC
[2023-12-31] MEDS: 0.9 % SODIUM CHLORIDE 50 ML VIAL IV (10:53)
[2023-12-31] MEDS: SODIUM CHLORIDE 0.9% 10ML SYR (RAD ONLY) 10 ML IV (10:53)
[2023-12-31] MEDS: IOPAMIDOL-370 (76%);100ML BOTTLE 100 ML IV (10:53)
[2023-12-31 11:02] LABS: Alanine Aminotransferase 17 U/L (12-78); Albumin Level 3.9 g/dl (3.5-5.0); Albumin/Globulin Ratio 1.3 (1.1-1.8); Alkaline Phosphatase 40 U/L (38-126); Anion Gap 7.8 mEq/L (5-15); Aspartate Amino Transferase 29 U/L (14-36); Bilirubin,Total 0.5 mg/dl (0.2-1.3); Blood Urea Nitrogen 19 mg/dl (7-17); Calcium 9.4 mg/dl (8.4-10.2); Carbon Dioxide 29 mmol/L (22.0-30.0); Chloride 106 mmol/L (98-107); Creatinine Clearance Estimated 31 mL/min (50-200); Estimated Glomerular Filt Rate 80 ml/min (>60); GFR (African American) 97 ML/MIN (>60); Globulin 2.9 g/dL (1.3-3.2); Glucose 101 mg/dl (74-100); Magnesium 2.1 mg/dl (1.6-2.3); Potassium 3.8 mmoL/L (3.5-5.1); Sodium 139 mmol/L (136-145); Total Protein,Serum 6.8 g/dl (6.3-8.2)
--- NOTE | 2023-12-31 11:49 | INFXCTL.NOTE ---
PROVIDED PT WITH A WARM BLANKET. AT BEDSIDE. CALL LIGHT WITHIN REACH. BED IN LOWEST POSITION.
--- NOTE | 2023-12-31 12:05 | PC.NURSE ---
rounded on pt, second warm blanket given
[2023-12-31 12:35] LABS: Microscopic, Urine URINE MICROSCOPIC (MICROSCOPIC)
[2023-12-31 12:40] LABS: Appearance,Urine CLEAR (Clear); Bilirubin,Urine Negative (Negative); Blood, Urine TRACE-I (Negative); Color,Urine YELLOW (Yellow); Glucose,Urine (UA) Negative (Negative); Ketones,Urine Negative (Negative); Leukocyte Esterase,Urine Negative (Negative); Nitrate,Urine Negative (Negative); Protein,Urine Negative (Negative); Urobilinogen,Urine 0.2 EU/dl (0.2)
[2023-12-31 12:54] LABS: Bacteria,Urine Trace /lpf; RBC,Urine Occasional #/hpf (0-3); Squamous Epithelial Cell,Urine Occasional #/hpf (0-5)
--- NOTE | 2023-12-31 14:08 | INFXCTL.NOTE ---
HOUSE AWARE OF ADMISSION
--- NOTE | 2023-12-31 14:08 | PC.NURSE ---
HS aware of admission for stroke like symptoms.
--- NOTE | 2023-12-31 14:08 | PC.NURSE ---
PER HOUSE PT IS GOING TO ROOM 206.
--- NOTE | 2023-12-31 14:19 | PC.NURSE ---
CALLED REPORT TO THI PATEL
--- NOTE | 2023-12-31 14:28 | PC.NURSE ---
pt arrived to floor room 206
[2023-12-31 14:38] LABS: Chol/HDL Ratio 2.4 (1-3.5); Cholesterol 183 mg/dl (140-200); HDL Cholesterol 76 mg/dl (40-60); Triglycerides 97 mg/dl (30-150); VLDL Cholesterol 19 mg/dL (0-40)
[2023-12-31 14:49] LABS: Direct LDL Cholesterol 83.88 mg/dL (100-129)
[2023-12-31] MEDS: HEPARIN SODIUM 5,000 UNIT/ML VIAL 5000 UNIT SQ ×2 (15:31→22:39)
--- NOTE | 2023-12-31 17:05 | P.HP_ITS ---
History of Present Illness *Admission Date: 12/31/23 *Reason for visit:: left arm weakness *History of present illness: Patient is a 83-year-old female with past medical history, hypertension hyperlipidemia who presents to the hospital for weakness of her left arm. According to the patient when she woke up this morning she was not able to lift her left arm. Patient denies associated numbness tingling sensation. Patient mentioned her last known normal was around 8 to 9 PM last night. Patient otherwise denied chest pain shortness of breath nausea vomiting diarrhea constipation dysuria fevers chills or diarrhea my evaluation. Patient was further admitted for further evaluation. [facility] Disclaimer: The information contained in this section may have been updated after the candy ent was seen, as this information can be updated by other users. Medical History Hypokalemia Cellulitis of right pinna Bladder prolapse, female, acquired Dysuria IFG (impaired fasting glucose) Memory changes Recurrent UTI Allergic rhinitis Insomnia Anxiety Osteoporosis GERD (gastroesophageal reflux disease) Essential hypertension Hyperlipidemia Broken hip Surgical History History of hysterectomy Family History Son Cancer Social History Smoking Status: Never smoker alcohol intake: never substance use type: denies use current occupational status: retired Travel in the last 8 weeks: None household members: spouse housing: house lives independently: Yes marital status: number of children: 4 number of grandchildren: 6 Review of Systems Review of Systems Review of systems (narrative): as per HPI Meds Home Medications and Allergies Home Medications Medication Instructions Recorded Confirmed Type cholecalciferol (vitamin D3) 25 25 mcg PO DAILY 10/06/22 12/25/23 History mcg (1,000 unit) capsule cranberry extract 500 mg tablet 500 mg PO DAILY 10/06/22 12/25/23 History omeprazole 20 mg capsule,delayed 20 mg PO DAILY 10/06/22 12/25/23 History release hzqcfmgb-htai-ossm 8 mg-folic 400 1 tab PO DAILY 03/17/23 12/25/23 History mcg-K 50 mcg-lutein 300 mcg tablet (Centrum Silver Women) atorvastatin 10 mg tablet See Rx Instructions .Route 09/16/23 12/25/23 Rx .COMPLEX #90 tabs estradiol 0.01% (0.1 mg/gram) 1 appful vaginal HS #42.5 grams 09/30/23 12/25/23 Rx vaginal cream (Estrace) mupirocin 2 % topical ointment 1 applic topical TID #15 grams 10/05/23 12/25/23 Rx potassium chloride 10 mEq 10 meq PO DAILY #30 tabs 10/27/23 12/25/23 Rx tablet,extended release(part/cryst) losartan 50 mg-hydrochlorothiazide See Rx Instructions .Route 12/03/23 12/25/23 Rx 12.5 mg tablet .COMPLEX #30 tabs lorazepam 0.5 mg tablet 0.5 mg PO DAILY PRN anxiety #30 12/08/23 12/25/23 Rx tabs mirtazapine 7.5 mg tablet 7.5 mg PO HS #30 tabs 12/25/23 12/25/23 Rx New Prescriptions to Start Prescriptions: Allergies Allergy/AdvReac Type Severity Reaction Status Date / Time acetaminophen Allergy Mild Verified 12/31/23 10:08 [From Tylenol-Codeine #3] ciprofloxacin [From Cipro] Allergy Mild Verified 12/31/23 10:08 codeine Allergy Mild Verified 12/31/23 10:08 [From Tylenol-Codeine #3] cyclobenzaprine Allergy Mild Verified 12/31/23 10:08 [From Flexeril] doxycycline Allergy Mild Verified 12/31/23 10:08 erythromycin base Allergy Mild Verified 12/31/23 10:08 hydrocodone Allergy Mild Verified 12/31/23 10:08 loratadine [From Claritin] Allergy Mild Verified 12/31/23 10:08 oxycodone [From Roxicet] Allergy Mild Verified 12/31/23 10:08 Exam Data for Last 24 hours Vital signs and Labs for Last 24 Hours: Temp Pulse Resp BP Pulse Ox O2 Del Method 98.0 F 77 17 159/72 H 98 Room Air 12/31/23 14:36 12/31/23 14:36 12/31/23 14:36 12/31/23 14:36 12/31/23 14:36 12/31/23 16:07 Laboratory Results - last 24 hr 04/04/24 10:11: WBC 4.2 L, RBC 4.27, Hgb 13.3, Hct 40.4, MCV 94.6, MCH 31.1, MCHC 32.8, RDW 13.9, Plt Count 210, MPV 7.4, Neut % (Auto) 64.4, Lymph % (Auto) 25.0, [place] % (Auto) 6.6, Eos % (Auto) 2.6, Baso % (Auto) 1.4, Neut # (Auto) 2.7, Lymph # (Auto) 1.0, [place] # (Auto) 0.3, Eos # (Auto) 0.1, Baso # (Auto) 0.1, Sodium 139, Potassium 3.8, Chloride 106, Carbon Dioxide 29, Anion Gap 7.8, BUN 19 H, Creatinine 0.70, Estimated Creat Clear 31, Estimated GFR 80, Est GFR ( Amer) 97, Glucose 101 H, Calcium 9.4, Magnesium 2.1, Total Bilirubin 0.5, AST 29, ALT 17, Alkaline Phosphatase 40, Total Protein 6.8, Albumin 3.9, Globulin 2.9, Albumin/Globulin Ratio 1.3, Triglycerides 97, Cholesterol 183, LDL Cholesterol Direct 83.88 L, VLDL Cholesterol 19, HDL Cholesterol 76 H, Cholesterol/HDL Ratio 2.4 12/31/23 10:36: Urine Color Yellow, Urine Appearance Clear, Urine pH 7.0, Ur Specific [place] 1.010, Urine Protein Negative, Urine Glucose (UA) Negative, Urine Ketones Negative, Urine Blood Trace-i, Urine Nitrate Negative, Urine Bilirubin Negative, Urine Urobilinogen 0.2, Ur Leukocyte Esterase Negative, Urine RBC Occasional, Urine WBC None, Ur Squamous Epith Cells Occasional, Urine Bacteria Trace I & O for Last 24 hours: Intake & Output 12/28/23 12/29/23 12/30/23 12/31/23 23:59 23:59 23:59 23:59 Weight 44.14 kg Constitutional Constitutional: no acute distress *Routine HEENT Exam Head: Present normocephalic Eye: Present EOMI and PERRL ENT: Present mucous membranes moist *Routine Neck Exam Neck: Present supple; Absent lymphadenopathy *Routine Respiratory Exam Respiratory: Present CTA bilaterally *Routine Cardiovascular Exam Cardiovascular: Present RRR *Routine Abdominal Exam Abdominal: Present soft and normoactive bowel sounds; Absent tenderness *Routine Rectal Exam Rectal:: deferred *Routine Genitalia Exam Genitalia:: deferred *Routine Extremities Exam Extremities: Absent cyanosis, clubbing or edema *Routine Skin Exam Skin: Present warm; Absent rash *Routine Neurological Exam Neurological: Present alert and oriented X3 Comments: grossly non-foocal except left arm weakness Assessment and Plan *Assessment and plan (1) Weakness: Status: Acute Category: Medical Code(s): R53.1 - Weakness (2) Discoordination: Status: Acute Category: Medical Code(s): R27.9 - Unspecified lack of coordination (3) Hyperlipidemia: Status: Acute Category: Medical Code(s): E78.5 - Hyperlipidemia, unspecified (4) Essential hypertension: Status: Acute Category: Medical Code(s): I10 - Essential (primary) hypertension (5) GERD (gastroesophageal reflux disease): Status: Acute Category: Medical Code(s): K21.9 - Gastro-esophageal reflux disease without esophagitis Plan Patient is a 83-year-old female with past medical history, hypertension hyperlipidemia who presents to the hospital for weakness of her left arm. According to the patient when she woke up this morning she was not able to lift her left arm. Patient denies associated numbness tingling sensation. Patient mentioned her last known normal was around 8 to 9 PM last night. Patient otherwise denied chest pain shortness of breath nausea vomiting diarrhea constipation dysuria fevers chills or diarrhea my evaluation. Patient was further admitted for further evaluation. Assessment and plan Left arm weakness, ataxia rule out CVA CT head, CTA head and neck performed in the emergency department, negative for acute process Aspirin, statin Order MRI brain with contrast Check lipid panel Check UA-negative for infectious etiology Chronic medical conditions Hypertension GERD Hyperlipidemia Prophylaxis-heparin
--- NOTE | 2023-12-31 17:28 | MR_ITS ---
PROCEDURE INFORMATION: Exam: MR Head Without Contrast Exam date and time: 12/31/2023 5:29 PM Age: 83 years old Clinical indication: Stroke-like symptoms; Lt upper extremity weakness; Additional info: R/O stroke TECHNIQUE: Imaging protocol: Magnetic resonance imaging of the head without contrast. COMPARISON: No relevant prior studies available. FINDINGS: Brain: There is a cluster of small restricted diffusion foci involving the right posterior frontal and parietal lobes, consistent with acute infarcts. Subtle increased FLAIR signal intensity is identified in this region. A chronic lacunar infarct is identified within the left cerebellar lobe. There are multiple additional foci/areas of FLAIR hyperintensity within the cerebral white matter. There is no mass effect or restricted diffusion associated with these foci. In a patient this age, this likely represents chronic small vessel ischemic disease. There is mild prominence of sulci, compatible with atrophy. A small focus of magnetic susceptibility blood products is seen within the right temporal lobe. Differential considerations include amyloid angiopathy, hypertensive microhemorrhage, and cavernous malformation. Multiple tiny foci of T2 hyperintensity seen in the bilateral basal ganglia and right thalamus, consistent with dilated perivascular spaces and possible chronic ischemic changes. Cerebral ventricles: Mild age-appropriate prominence of the ventricles. Bones/joints: Degenerative changes are identified involving the upper cervical spine. Evaluation of cervical spine is limited. Paranasal sinuses: Minimal mucosal thickening of scattered ethmoid air cells. Mastoid air cells: Mucosal thickening and mild effusions are seen within right mastoid air cells. Minimal mucosal thickening/effusion noted within left mastoid air cells. Orbital cavities: Artifact limits evaluation of the orbits. Nasal cavity: Nasal septal deviation to the left is visualized. Vasculature: There is heterogeneous signal intensity of the right internal carotid artery on axial T2 images at the junction of the cavernous and clinoid segments, with preservation of the flow void on sagittal T2 images. Soft tissues: Unremarkable, as visualized. IMPRESSION: 1. There is a cluster of small restricted diffusion foci involving the right posterior frontal and parietal lobes, consistent with acute infarcts. 2. A chronic lacunar infarct is identified within the left cerebellar lobe. 3. Moderate additional white matter disease, likely representing chronic small vessel ischemic disease. 4. Mild atrophy. 5. A small focus of magnetic susceptibility blood products is seen within the right temporal lobe. Differential considerations include amyloid angiopathy, hypertensive microhemorrhage, and cavernous malformation. Correlation prior studies recommended. 6. Additional findings described above.
[2023-12-31] MEDS: ATORVASTATIN 40MG TABLET 40 MG PO (21:18)
[2023-12-31] MEDS: PANTOPRAZOLE 40MG TABLET 40 MG PO (21:19)
[2023-12-31] MEDS: MELATONIN 5MG TABLET 5 MG PO (21:19)
[2023-12-31] MEDS: IBUPROFEN 400 MG TABLET PO (21:22)
[2024-01-01] VITALS: BP 139/68; PULSE 72; RESP 17; TEMP 36.6; O2SAT 97
[2024-01-01 04:00] VITALS: BP 148/70; PULSE 69; RESP 16; TEMP 36.9; O2SAT 98; BMI 19.6
--- NOTE | 2024-01-01 06:00 | CA_ITS ---
APPROVED REPORT EXAM: Comprehensive 2D, Doppler, and color-flow Echocardiogram [employer] Change Analyst: Fadumo Woody RDCS Ht: 4 ft 11 in Wt: 97lbs BSA: 1.36 BP: 159/72 mmHg Indications: BUBBLE STUDY CVA L SIDED WEAKNESS NOW RESOLVED HTN HLP M-Mode Dimensions RVDd 1.75 cm (0.9-2.6) LA Diam 3.44 cm (1.9-4.0) LVDd 4.46 cm (3.5-5.7) LVDs 3.28 cm (3.5-5.7) IVSd 0.71 cm (0.6-1.1) PWd 0.82 cm (0.6-1.1) EF (Teich) 51.90% FS 26.50% EDV (Teich) 90.50 mL ESV (Teich) 43.50 mL LV Diastology E Decel Time 277 (160-240 msec) E/A Ratio 0.7 Aortic Valve AI PHT 415.00 ms Mitral Valve MV E Max Azael. 75.0 (40-130 cm/s) MV A Velocity 103.0 (40-130 cm/s) E/A Ratio 0.73 MV PHT 81.0 ms Left Ventricle The left ventricle is normal size. The left ventricular systolic function is normal. The left ventricular ejection fraction is within the normal range. Proximal septal thickening is noted. There is normal LV segmental wall motion. Diastolic function is indeterminate. LVEF is 55%. Right Ventricle The right ventricle is normal size. The right ventricular systolic function is normal. Atria The left atrium size is normal. The right atrium size is normal. There is no Doppler evidence of interatrial shunt. Agitated saline administration demonstrates presence of bubbles in the LA/LV. However, the timing by which the bubbles migrate is inconclusive, therefore cannot distinguish intracardiac versus intrapulmonary shunting. Aortic Valve The aortic valve is mildly thickened. There is no aortic valvular stenosis. Mild aortic regurgitation. Mitral Valve The mitral valve leaflets are mildly thickened. No evidence of mitral valve stenosis. Mild mitral regurgitation. Tricuspid Valve The tricuspid valve leaflets are thin and pliable. Trace tricuspid regurgitation. There is insufficient TR jet to estimate RVSP. Pulmonic Valve The pulmonary valve is normal in structure. Trace pulmonic regurgitation. Great Vessels The aortic root is normal in size. IVC is normal in size and collapses >50% with inspiration. Pericardium There is no pericardial effusion. Other Information Study Quality: Fair Conclusion Normal biventricular systolic function. Mild AI, mild MR. Agitated saline (bubble) administration demonstrates presence of bubbles in the LA/LV. However, the timing by which the bubbles migrate is inconclusive, therefore cannot distinguish intracardiac versus intrapulmonary shunting. Due to advanced age and if deemed clinically appropriate by the referring team, no further diagnostic or therapeutic evaluation is recommended to evaluate for intracardiac vs. intrapulmonary shunting as implanting a closure device is unlikely to be the indicated in this setting. Electronically signed by : Maxine Phillips MD 01/04/2024 20:36:17
[2024-01-01] MEDS: HEPARIN SODIUM 5,000 UNIT/ML VIAL 5000 UNIT SQ (06:43)
[2024-01-01 06:48] LABS: Basophils # 0.1 K/mm3 (0-0.2); Basophils % 1.3 % (0.1-2.0); Chloride 107 mmol/L (98-107); Eosinophils # 0.1 K/mm3 (0.0-0.4); Eosinophils % 2.3 % (0.1-12.0); Hematocrit 39.1 % (37.0-47.0); Hemoglobin 12.8 g/dL (12.2-16.2); Lymphocytes # 1.3 K/mm3 (0.7-4.5); Lymphocytes % 25.4 % (10-50); Mean Corpuscular HGB Conc 32.7 g/dL (31.8-35.4); Mean Corpuscular Hemoglobin 30.3 pg (27.0-31.2); Mean Corpuscular Volume 92.9 fl (81-99); Mean Platelet Volume 8.4 fl (7.4-10.4); Monocytes # 0.3 K/mm3 (0.1-1.0); Monocytes % 6.4 % (1.7-9.3); Neutrophils # 3.4 K/mm3 (1.8-7.8); Neutrophils % 64.6 % (37.0-80.0); Platelet Count 228 K/mm3 (142-424); Potassium 3.4 mmoL/L (3.5-5.1); Red Blood Count 4.21 M/mm3 (4.20-5.40); Sodium 138 mmol/L (136-145); White Blood Count 5.2 K/mm3 (4.8-10.8)
[2024-01-01 06:51] LABS: Anion Gap 8.4 mEq/L (5-15); Blood Urea Nitrogen 21 mg/dl (7-17); Carbon Dioxide 26 mmol/L (22.0-30.0); Creatinine Clearance Estimated 30 mL/min (50-200); Estimated Glomerular Filt Rate 96 ml/min (>60); GFR (African American) 116 ML/MIN (>60)
[2024-01-01 06:52] LABS: Calcium 8.9 mg/dl (8.4-10.2); Glucose 98 mg/dl (74-100)
[2024-01-01] MEDS: ASPIRIN EC 81MG TABLET 81 MG PO (07:32)
[2024-01-01 07:53] VITALS: BP 138/68; PULSE 79; RESP 20; TEMP 35.9; O2SAT 100
--- NOTE | 2024-01-01 07:56 | HMH.PHAINT1 ---
Pharmacy Intervention Comments: home medication list verified using the list from [facility]
--- NOTE | 2024-01-01 08:05 | HMH.PTEV ---
Physical Therapy Evaluation Rehab PT IP Evaluation Start: 12/31/23 17:11 Freq: ONCE Status: Active Protocol: Document 01/01/24 07:50 KAMRON (Rec: 01/01/24 08:01 KAMRON [id number]) Subjective/History History History Per H&P: Patient is a 83-year-old female with past medical history, hypertension hyperlipidemia who presents to the hospital for weakness of her left arm. According to the patient when she woke up this morning she was not able to lift her left arm. Patient denies associated numbness tingling sensation. Patient mentioned her last known normal was around 8 to 9 PM last night. Patient otherwise denied chest pain shortness of breath nausea vomiting diarrhea constipation dysuria fevers chills or diarrhea my evaluation. Patient was further admitted for further evaluation. Subjective Subjective PLOF per pt report: Living with in a triplex with 5 CHAN with HRs. IND with functional mobility and ADLs. No AD use. Recently quit driving ( drives as needed). Pt reports she was initially admitted d/t c/o LUE weakness. I had a small stroke . Pt reports her strength in her LUE has improved since admission (Pt to see OT for evaluation this morning). Pt denying sensory changes or any weakness in LEs . New diagnosis of cancer in past 12 No months? Rehab PT IP Eval Objective Appearance Patient Behavior Appropriate,Cooperative Patient Orientation Person,Situation Difficulty following instructions none Speech Pattern Clear Ambulation Patient Able to Ambulate Yes Ambulation Observation IP General Gait Pattern Observation No Deviations/Normal Ambulation Distance (feet) 25 Ambulation Assistive Device None Ambulation Ability Supervision/Stand by Balance Ability to Arise Able, uses arms to help Sitting Balance Steady, safe Standing Balance Narrow stance w/o support Transfers Bed Transfer Ability Supervision/Stand by Sit to Stand Bed Transfer Ability Supervision/Stand by Rehab PT IP prob,goals,plan Problems Date of Evaluation: 01/01/24 Rehab Potential Rehab Potential Innapropriate for Skilled Therapy Discharge Plan PT Discharge Plan Pt demonstrated good functional strength and steady transfers/ambulation without AD. PT provided SUP during ambulation. Pt with no LOB throughout. Pt safe to d/c home when deemed medically necessary d/t current level of mobility and family support. Pt not appropriate for skilled acute care PT at this time d/ t pt?s mobility being at baseline. Eval Complexity Eval Charge Codes 11449 - Moderate Complexity PHYSICIAN CERTIFICATION: I certify the specified therapy services for Natalia C Bran are required, authorized, and reviewed every 30 days.
[2024-01-01] MEDS: hydroCHLOROthiazide 12.5MG CAPSULE 12.5 MG PO (08:16)
[2024-01-01] MEDS: IRBESARTAN 75MG TABLET 75 MG PO (08:16)
--- NOTE | 2024-01-01 08:29 | PC.NURSE ---
agree with nursing students assessment.
--- NOTE | 2024-01-01 09:34 | HMH.OTEV ---
OT Inpatient Evaluation Rehab OT IP Evaluation Start: 12/31/23 17:11 Freq: ONCE Status: Active Protocol: Document 01/01/24 09:28 VIKTOR (Rec: 01/01/24 09:34 [facility] [id number]) Rehab OT IP Assessment Subjective History Pt oriented x 3 on arrival. Pt agreeable to engage in therapy evaluation. Pt admitted on 12/31/23 due to stroke like symptoms and left sided weakness. History and physical report: Patient is a 83-year-old female with past medical history, hypertension hyperlipidemia who presents to the hospital for weakness of her left arm. According to the patient when she woke up this morning she was not able to lift her left arm. Patient denies associated numbness tingling sensation. Patient mentioned her last known normal was around 8 to 9 PM last night. Patient otherwise denied chest pain shortness of breath nausea vomiting diarrhea constipation dysuria fevers chills or diarrhea my evaluation. Patient was further admitted for further evaluation. Subjective Everything is much better now . Prior to being in the hospital , pt lived with her . pt claims she was normally independent with all ADLs and IADLs. She did not require any type of AE during funcitonal transfers. Pt no longer drove. Objective Patient Orientation Person,Place,Birthday Right Upper Extremity Gross ROM WFL Left Upper Extremity Gross ROM WFL Bed Mobility bed mobility-scooting,bed mobility - supine/sit Assist Level Supervision/Stand by Transfer Training Sit/Stand Transfer Assist Level Supervision/Stand by Chair Transfer Ability Supervision/Stand by Chair Transfer Technique Sit to/from Ambulatory Chair Transfer Assistive Devices None Feeding Ability Independent Lower Body Dressing Ability Standby Assistance Rehab OT IP prob,goals,plan Problems Date of Evaluation: 01/01/24 Rehab Potential Rehab Potential Innapropriate for Skilled Therapy Discharge Plan OT Discharge Plan At this time, pt appears to be at her baseline with all functional transfers and ADL independence. Pt no longer has any L UE weakness and ROM and strength are within normal limits. Pt can return home with her once she is medically stable per physician . Eval Complexity Eval Charge Codes 49450 - Moderate Complexity PHYSICIAN CERTIFICATION: I certify the specified therapy services for [place] C Bran are required, authorized, and reviewed every 30 days.
[2024-01-01 11:58] VITALS: BP 166/80; PULSE 83; RESP 22; TEMP 36.6; O2SAT 98
--- NOTE | 2024-01-01 13:06 | EXP.DC.SUM ---
General Admission date:: 12/31/23 Discharge date: 01/01/24 HPI HPI HPI: Patient is a 83-year-old female with past medical history, hypertension hyperlipidemia who presents to the hospital for weakness of her left arm. According to the patient when she woke up this morning she was not able to lift her left arm. Patient denies associated numbness tingling sensation. Patient mentioned her last known normal was around 8 to 9 PM last night. Patient otherwise denied chest pain shortness of breath nausea vomiting diarrhea constipation dysuria fevers chills or diarrhea my evaluation. Patient was further admitted for further evaluation. Hospital Course Hospital Course Hospital Course: Patient is a 83-year-old female with past medical history, hypertension hyperlipidemia who presents to the hospital for weakness of her left arm. According to the patient when she woke up this morning she was not able to lift her left arm. Patient denies associated numbness tingling sensation. Patient mentioned her last known normal was around 8 to 9 PM last night. Patient otherwise denied chest pain shortness of breath nausea vomiting diarrhea constipation dysuria fevers chills or diarrhea my evaluation. Patient was further admitted for further evaluation. Assessment and plan Left arm weakness, ataxia rule out CVA - resolved MRI positive for acute CVA, dc on ASA, statin, f/u with neurology as OP, referral given, patient agrees to follow up with appointments CT head, CTA head and neck performed in the emergency department, negative for acute process Aspirin, statin Chronic medical conditions - stable Hypertension GERD Hyperlipidemia Exam Data for Last 24 hours Vital signs and Labs for Last 24 Hours: Temp Pulse Resp BP Pulse Ox O2 Del Method 97.8 F 83 22 166/80 H 98 Room Air 01/01/24 11:58 01/01/24 11:58 01/01/24 11:58 01/01/24 11:58 01/01/24 11:58 01/01/24 11:58 Laboratory Results - last 24 hr 12/31/23 10:11: Triglycerides 97, Cholesterol 183, LDL Cholesterol Direct 83.88 L, VLDL Cholesterol 19, HDL Cholesterol 76 H, Cholesterol/HDL Ratio 2.4 01/01/24 05:38: WBC 5.2, RBC 4.21, Hgb 12.8, Hct 39.1, MCV 92.9, MCH 30.3, MCHC 32.7, RDW 14.0, Plt Count 228, MPV 8.4, Neut % (Auto) 64.6, Lymph % (Auto) 25.4, [place] % (Auto) 6.4, Eos % (Auto) 2.3, Baso % (Auto) 1.3, Neut # (Auto) 3.4, Lymph # (Auto) 1.3, [place] # (Auto) 0.3, Eos # (Auto) 0.1, Baso # (Auto) 0.1, Sodium 138, Potassium 3.4 L, Chloride 107, Carbon Dioxide 26, Anion Gap 8.4, BUN 21 H, Creatinine 0.60, Estimated Creat Clear 30, Estimated GFR 96, Est GFR ( Amer) 116, Glucose 98, Calcium 8.9 I & O for Last 24 hours: Intake & Output 12/29/23 12/30/23 12/31/23 01/01/24 23:59 23:59 23:59 23:59 Intake Total 470 / 650 1070 / 1070 Output Total 0 / 0 Balance 470 / 650 1070 / 1070 Weight 44.14 kg 44.2 kg Constitutional Constitutional: no acute distress *Routine HEENT Exam Head: Present normocephalic Eye: Present EOMI and PERRL ENT: Present mucous membranes moist *Routine Neck Exam Neck: Present supple; Absent lymphadenopathy *Routine Respiratory Exam Respiratory: Present CTA bilaterally *Routine Cardiovascular Exam Cardiovascular: Present RRR *Routine Abdominal Exam Abdominal: Present soft and normoactive bowel sounds; Absent tenderness *Routine Extremities Exam Extremities: Absent cyanosis, clubbing or edema *Routine Skin Exam Skin: Present warm; Absent rash *Routine Neurological Exam Neurological: Present alert and oriented X3 Results Data Completed and Pending Labs on day of discharge: Labs from last 24 hours 01/01/24 12/31/23 05:38 10:11 WBC 5.2 RBC 4.21 Hgb 12.8 Hct 39.1 MCV 92.9 MCH 30.3 MCHC 32.7 RDW 14.0 Plt Count 228 MPV 8.4 Neut % (Auto) 64.6 Lymph % (Auto) 25.4 [place] % (Auto) 6.4 Eos % (Auto) 2.3 Baso % (Auto) 1.3 Neut # (Auto) 3.4 Lymph # (Auto) 1.3 [place] # (Auto) 0.3 Eos # (Auto) 0.1 Baso # (Auto) 0.1 Sodium 138 Potassium 3.4 L Chloride 107 Carbon Dioxide 26 Anion Gap 8.4 BUN 21 H Creatinine 0.60 Estimated Creat Clear 30 Estimated GFR 96 Est GFR ( Amer) 116 Glucose 98 Calcium 8.9 Triglycerides 97 Cholesterol 183 LDL Cholesterol Direct 83.88 L VLDL Cholesterol 19 HDL Cholesterol 76 H Cholesterol/HDL Ratio 2.4 DS: Diagnosis Discharge Diagnosis (1) Weakness: Status: Acute Code(s): R53.1 - Weakness (2) Discoordination: Status: Acute Code(s): R27.9 - Unspecified lack of coordination (3) Hyperlipidemia: Status: Acute Code(s): E78.5 - Hyperlipidemia, unspecified (4) Essential hypertension: Status: Acute Code(s): I10 - Essential (primary) hypertension (5) GERD (gastroesophageal reflux disease): Status: Acute Code(s): K21.9 - Gastro-esophageal reflux disease without esophagitis Meds Home Medications and Allergies Home Medications Medication Instructions Recorded Confirmed Type potassium chloride 10 mEq 10 meq PO DAILY #30 tabs 10/27/23 01/01/24 Rx tablet,extended release(part/cryst) lorazepam 0.5 mg tablet 0.5 mg PO DAILY PRN anxiety #30 12/08/23 01/01/24 Rx tabs mirtazapine 7.5 mg tablet 7.5 mg PO HS #30 tabs 12/25/23 01/01/24 Rx alendronate 70 mg tablet 70 mg PO WEEKLY 01/01/24 01/01/24 History aspirin 81 mg tablet,delayed 81 mg PO DAILY 30 days #30 tabs 01/01/24 Rx release atorvastatin 40 mg tablet 40 mg PO HS 30 days #30 tabs 01/01/24 Rx donepezil 5 mg tablet 5 mg PO HS 01/01/24 01/01/24 History estradiol 0.01% (0.1 mg/gram) 1 appful vaginal DIRECTED 01/01/24 01/01/24 History vaginal cream (Estrace) losartan 50 mg-hydrochlorothiazide 1 tab PO DAILY 01/01/24 01/01/24 History 12.5 mg tablet oxybutynin chloride 5 mg 5 mg PO DAILY 01/01/24 01/01/24 History tablet,extended release 24 hr temazepam 30 mg capsule 30 mg PO HSP PRN Insomnia 01/01/24 01/01/24 History New Prescriptions to Start Prescriptions: aspirin Dayron,Irfan atorvastatin Dayron,Irfan Allergies Allergy/AdvReac Type Severity Reaction Status Date / Time acetaminophen Allergy Mild Verified 12/31/23 10:08 [From Tylenol-Codeine #3] ciprofloxacin [From Cipro] Allergy Mild Verified 12/31/23 10:08 codeine Allergy Mild Verified 12/31/23 10:08 [From Tylenol-Codeine #3] cyclobenzaprine Allergy Mild Verified 12/31/23 10:08 [From Flexeril] doxycycline Allergy Mild Verified 12/31/23 10:08 erythromycin base Allergy Mild Verified 12/31/23 10:08 hydrocodone Allergy Mild Verified 12/31/23 10:08 loratadine [From Claritin] Allergy Mild Verified 12/31/23 10:08 oxycodone [From Roxicet] Allergy Mild Verified 12/31/23 10:08 Discharge Plan Disposition Patient Disposition: Home, Self-Care Condition: Good Follow up Plan Follow up with: Lucy Gonzalez MD [Staff Physician] - 1 week (CVA on MRI) Hemant Dominguez MD [Primary Care Provider] - Enter time for follow up Prescriptions/Medication Reconciliation: New aspirin 81 mg Tablet,Delayed Release (Dr/Ec) 81 mg PO DAILY 30 Days Qty: 30 0RF atorvastatin 40 mg Tablet 40 mg PO HS 30 Days Qty: 30 0RF Continued lorazepam 0.5 mg tablet 0.5 mg PO DAILY PRN (Reason: anxiety) Qty: 30 2RF potassium chloride 10 mEq tablet,ER particles/crystals 10 meq PO DAILY Qty: 30 3RF mirtazapine 7.5 mg tablet 7.5 mg PO HS Qty: 30 2RF donepezil 5 mg tablet 5 mg PO HS alendronate 70 mg tablet 70 mg PO WEEKLY Patient Comments: SWALLOW 1 TAB WITH A FULL GLASS OF WATER ON AN EMPTY STOMACH ONCE WEEKLY.DO NOT LIE DOWN, EAT,DRINK, OR TAKE OTHER MEDS FOR AT LEAST 30 MINUTES temazepam 30 mg capsule 30 mg PO HSP PRN (Reason: Insomnia) Patient Comments: 30 mg orally at bedtime nightly As Needed for sleep oxybutynin chloride 5 mg tablet extended release 24hr 5 mg PO DAILY Patient Comments: TAKE 1 TABLET BY MOUTH ONCE DAILY. losartan-hydrochlorothiazide 50-12.5 mg tablet 1 tab PO DAILY Patient Comments: Take 1 Tablet by mouth once daily. estradiol [Estrace] 0.01 % (0.1 mg/gram) cream 1 appful vaginal DIRECTED Rx Instructions: apply vaginally nightly and insert a blueberry sized amount into the vagina twice weekly Discontinued atorvastatin 10 mg tablet 10 mg PO HS Problem Reconciliation Problems Reviewed?: Yes Patient Discharge Instructions ACTIVITY: Ambulate as tolerated DIET: continue same diet Providers Primary Care Provider: Hemant Dominguez Admit Provider: Nona Padgett Attending Provider: Nona Padgett
--- NOTE | 2024-01-04 14:25 | CARE MANAGER ---
Contacted patient related to hospital discharge. She states she is doing better. She was supposed to follow up with Dr. Dominguez today, but he was out of the office due to sickness and rescheduled. She has a follow up with Dr. Gonzalez and a sleep study test tomorrow. Denies questions or concerns. JORGE Cordon
== END 2024-01-01 13:33 | disposition home or self-care (01) ==
LOC: ER 12:18 → 2ND 14:12
PROVIDERS: Admitting Provider Internal Medicine; Emergency Provider Emergency Medicine; PCP Family Medicine; Visit Provider Internal Medicine
DX: R53.1 Weakness (principal); R27.9 Unspecified lack of coordination; E78.5 Hyperlipidemia, unspecified; I10 Essential (primary) hypertension; K21.9 Gastro-esophageal reflux disease without esophagitis; Z79.899 Other long term (current) drug therapy
CPT/HCPCS: 70450; 70496; 70498; 70551; 80048; 80053; 80061; 81001; 83735; 85025; 93005; 93306; 97162; 97166; 99285; G0378; Q9967

== ENCOUNTER → 2024-01-05 19:53 | Outpatient (CLI) | payer MEDICARE, SELFPAY | PROVIDERS: PCP Family Medicine; Visit Provider Nurse Practitioner | DX: G47.30 Sleep apnea, unspecified (principal); G47.34 Idiopathic sleep related nonobstructive alveolar hypoventilation; G47.8 Other sleep disorders; G47.00 Insomnia, unspecified | CPT/HCPCS: 95810 ==

== ENCOUNTER 2024-01-27 09:19 | Outpatient (CLI) | payer MEDICARE, SELFPAY | END 2024-01-27 23:59 | disposition home or self-care (01) | LOC: LAB.DROPOF 01-28 09:20 | PROVIDERS: PCP Family Medicine; Visit Provider Family Medicine | DX: N39.0 Urinary tract infection, site not specified (principal); B96.89 Other specified bacterial agents as the cause of diseases classified elsewhere | CPT/HCPCS: 87086 ==

== ENCOUNTER 2024-03-11 18:00 | Outpatient (CLI) | payer MEDICARE, SELFPAY | END 2024-03-11 23:59 | disposition home or self-care (01) | LOC: LAB.DROPOF 03-12 08:55 | PROVIDERS: PCP Family Medicine; Visit Provider Family Medicine | DX: R30.0 Dysuria (principal) | CPT/HCPCS: 87086 ==

== ENCOUNTER 2024-03-16 10:33 | Outpatient (CLI) | payer MEDICARE, SELFPAY | END 2024-03-16 23:59 | disposition home or self-care (01) | LOC: RT 10:34 | PROVIDERS: PCP Family Medicine; Visit Provider Specialist | DX: I63.40 Cerebral infarction due to embolism of unspecified cerebral artery (principal) | CPT/HCPCS: 93225; 93227 ==

== ENCOUNTER 2024-03-18 09:57 | Outpatient (CLI) | payer MEDICARE, SELFPAY | END 2024-03-18 23:59 | disposition home or self-care (01) | LOC: RT 10:00 | PROVIDERS: PCP Family Medicine; Visit Provider Specialist | DX: I63.40 Cerebral infarction due to embolism of unspecified cerebral artery (principal); I10 Essential (primary) hypertension | CPT/HCPCS: 93270; 93272 ==

== ENCOUNTER 2024-04-05 09:35 | Outpatient (CLI) | payer MEDICARE, SELFPAY | END 2024-04-05 23:59 | disposition home or self-care (01) | LOC: LAB.DROPOF 04-06 10:58 | PROVIDERS: PCP Nurse Practitioner; Visit Provider Nurse Practitioner | DX: R39.9 Unspecified symptoms and signs involving the genitourinary system (principal); N39.0 Urinary tract infection, site not specified; B96.89 Other specified bacterial agents as the cause of diseases classified elsewhere | CPT/HCPCS: 87086; 87088; 87186 ==

== ENCOUNTER 2024-04-08 03:29 | Emergency (ER) | payer MEDICARE, SELFPAY ==
[2024-04-08 03:30] VITALS: BP 173/86; PULSE 84; RESP 18; TEMP 36.3; O2SAT 97; BMI 21.6
--- NOTE | 2024-04-08 03:37 | CT_ITS ---
PROCEDURE INFORMATION: Exam: CT Abdomen And Pelvis With Contrast Exam date and time: 04/08/2024 4:32 AM Age: 83 years old Clinical indication: Other: Urinary retention TECHNIQUE: Imaging protocol: Computed tomography of the abdomen and pelvis with contrast. Radiation optimization: All CT scans at this facility use at least one of these dose optimization techniques: automated exposure control; mA and/or kV adjustment per patient size (includes targeted exams where dose is matched to clinical indication); or iterative reconstruction. Contrast material: ISOVUE; Contrast volume: 75 ml; Contrast route: IV; COMPARISON: US KIDNEY 01/12/2023 2:18 PM FINDINGS: Liver: Normal. No mass. Gallbladder and biliary ducts: Normal. No calcified stones. No ductal dilation. Pancreas: Normal. No ductal dilation. Spleen: Normal. No splenomegaly. Adrenal glands: Normal. No mass. Kidneys and ureters: Normal. No hydronephrosis. Stomach and bowel: Diverticulosis without diverticulitis. Moderate retained stool present. Appendix: No evidence of appendicitis. Intraperitoneal space: Unremarkable. No free air. No significant fluid collection. Vasculature: Unremarkable. No abdominal aortic aneurysm. Lymph nodes: Unremarkable. No enlarged lymph nodes. Urinary bladder: The bladder is unremarkable. Reproductive: Prior hysterectomy. Bones/joints: Prior ORIF right femur fracture. Soft tissues: Unremarkable. IMPRESSION: 1. No acute process noted. No evidence of bladder distension noted. 2. Hysterectomy. 3. Diverticulosis without diverticulitis. 4. Pelvic floor laxity. 5. ORIF right hip fracture.
[2024-04-08 03:40] VITALS: BMI 38.9
--- NOTE | 2024-04-08 03:57 | ED_ITS ---
Discharge Plan Disposition Patient Disposition: Home, Self-Care Condition: Good Prescriptions Prescriptions: New tamsulosin 0.4 mg capsule 0.4 mg PO HS Qty: 5 0RF No Action atorvastatin 40 mg tablet 40 mg PO HS 30 Days Qty: 90 3RF sulfamethoxazole-trimethoprim [Bactrim DS] 800-160 mg tablet 1 tab PO BID Qty: 20 0RF losartan-hydrochlorothiazide 50-12.5 mg tablet 1 tab PO DAILY Qty: 90 3RF lorazepam 0.5 mg tablet See Rx Instructions .ROUTE .COMPLEX PRN (Reason: anxiety) Qty: 90 2RF Rx Instructions: ONE DURING THE DAY NEEDED FOR ANXIETY, ONE-TWO HS NEEDED FOR SLEEP PRN; alendronate 70 mg tablet 70 mg PO WEEKLY Patient Comments: SWALLOW 1 TAB WITH A FULL GLASS OF WATER ON AN EMPTY STOMACH ONCE WEEKLY.DO NOT LIE DOWN, EAT,DRINK, OR TAKE OTHER MEDS FOR AT LEAST 30 MINUTES estradiol [Estrace] 0.01 % (0.1 mg/gram) cream 1 appful vaginal DIRECTED Rx Instructions: apply vaginally nightly and insert a blueberry sized amount into the vagina twice weekly aspirin 81 mg Tablet,Delayed Release (Dr/Ec) 81 mg PO DAILY 30 Days Qty: 30 0RF Referrals Follow up/Referrals: Sarah Dumont APRN [Primary Care Provider] - See instructions Tae Santos MD [Staff Physician] - See instructions (recurrent UTI, brief episode of urinary retention spontaneously resolved in ER) Activity Restrictions/Add. Instructions Additional Instructions/Restrictions: You were evaluated in the ER. You are appropriate for discharge at this time. Follow-up with your primary care physician as well as with urology. Take the prescribed tamsulosin at night for the next few nights. Also continue taking the prescribed Bactrim. Drink plenty of water. Return to the ER with new, worsening, or otherwise concerning symptoms. Clinical Impressions Clinical Impression: Urinary retention Instructions Patient Instructions: DI for Urinary Tract Infection (UTI), DI for Urinary Tract Infection in Children Discharge ED Provider: Baldev Hernandez Adult [facility] General Chief complaint: Urogenital-Female Stated complaint: can't urinate Time Seen by Provider: 04/08/24 03:35 Mode of Arrival: Ambulatory Source of Information: Patient Limitations: No Limitations Description of Symptoms (Recalled from ER Triage Doc. by RN): Patient presents to ED unable to urinate since yesterday morning. Patient states she seen her PCP this week and was started on Bactrim. Patient reports increasing lower abd pain this evening as well. History of Present Illness HPI narrative: 83-year-old female presents to the ER for concerns of inability to urinate in the last approximately 5 to 6 hours. Patient states she has been having some difficulty with urination previously and has been treated for recurrent urinary tract infections. She saw her primary care physician on 04/05/2024 and was started on Bactrim despite urine dipstick being negative for nitrates and only showing trace leukocyte esterase. Patient does not have dysuria or hematuria, she is not having fevers. She states she has mild lower abdominal discomfort and feels like she needs to urinate but is unable to pass urine. She is not having any flank pain. No other associated symptoms at this time. Patient and at bedside report history of stroke back in December that has not left her with any deficits. She has never been on any medications to treat incontinence. Related Data Home Medications Medication Instructions Recorded Confirmed alendronate 70 mg tablet 70 mg PO WEEKLY 01/01/24 04/05/24 estradiol 0.01% (0.1 mg/gram) 1 appful vaginal DIRECTED 01/01/24 04/05/24 vaginal cream (Estrace) Previous Rx's Medication Instructions Recorded aspirin 81 mg tablet,delayed 81 mg PO DAILY 30 days #30 tabs 01/01/24 release atorvastatin 40 mg tablet 40 mg PO HS 30 days #90 tabs 01/27/24 losartan 50 mg-hydrochlorothiazide 1 tab PO DAILY #90 tabs 02/15/24 12.5 mg tablet lorazepam 0.5 mg tablet See Rx Instructions .Route 02/17/24 .COMPLEX PRN anxiety #90 tabs sulfamethoxazole 800 1 tab PO BID #20 tabs 04/05/24 mg-trimethoprim 160 mg tablet (Bactrim DS) tamsulosin 0.4 mg capsule 0.4 mg PO HS #5 caps 04/08/24 Allergies Allergy/AdvReac Type Severity Reaction Status Date / Time acetaminophen Allergy Mild Verified 04/05/24 09:30 [From Tylenol-Codeine #3] ciprofloxacin [From Cipro] Allergy Mild Verified 04/05/24 09:30 codeine Allergy Mild Verified 04/05/24 09:30 [From Tylenol-Codeine #3] cyclobenzaprine Allergy Mild Verified 04/05/24 09:30 [From Flexeril] doxycycline Allergy Mild Verified 04/05/24 09:30 erythromycin base Allergy Mild Verified 04/05/24 09:30 hydrocodone Allergy Mild Verified 04/05/24 09:30 loratadine [From Claritin] Allergy Mild Verified 04/05/24 09:30 oxycodone [From Roxicet] Allergy Mild Verified 04/05/24 09:30 [facility] Disclaimer: The information contained in this section may have been updated after the patient was seen, as this information can be updated by other users. 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 Hypokalemia Cellulitis of right pinna Bladder prolapse, female, acquired Dysuria IFG (impaired fasting glucose) Memory changes Recurrent UTI Allergic rhinitis Insomnia Anxiety Osteoporosis GERD (gastroesophageal reflux disease) Essential hypertension Hyperlipidemia Broken hip Surgical History History of hysterectomy Family History Son Cancer Social History Smoking Status: Never smoker alcohol intake: never substance use type: denies use current occupational status: retired Travel in the last 8 weeks: None household members: spouse housing: house lives independently: Yes marital status: number of children: 4 number of grandchildren: 6 ROS Obtained: Yes All systems reviewed & no additional complaints except as documented Constitutional Constitutional: Denies chills, Denies fever(s), Denies headache(s) and Denies weakness Eyes Eyes: Denies change in vision ENT Ears, Nose, Mouth, and Throat: Denies dizziness, Denies headache(s), Denies nasal congestion and Denies sore throat Cardiovascular Cardiovascular: Denies chest pain, Denies dyspnea and Denies leg edema Respiratory Respiratory: Denies cough and Denies dyspnea Gastrointestinal Gastrointestingal: Reports abdominal pain; Denies constipation, diarrhea, nausea or vomiting Genitourinary Female Genitourinary: Reports difficulty voiding, Denies dysuria, Denies flank pain and Denies hematuria Musculoskeletal Musculoskeletal: Denies arthralgias, Denies myalgias, Denies numbness and Denies tingling Integumentary/Breasts Skin/Breast: Denies change in pigmentation Neurologic Neurologic: Denies dizziness, Denies headache(s), Denies numbness, Denies tingling and Denies weakness Physical Exam General General appearance: alert and in no apparent distress Head Head exam: atraumatic and normocephalic Eye Eye exam: Present PERRL and EOMI ENT ENT exam: Present mucous membranes moist Neck Neck exam: Present normal inspection and full ROM Chest Chest inspection: Present symmetric chest wall rise Respiratory Respiratory exam: Absent respiratory distress or stridor Cardiovascular Cardiovascular exam: Present regular rate and normal rhythm Abdominal Exam Abdominal exam: Present soft and tenderness (Mild suprapubic); Absent distention, guarding or rebound Extremities Exam Extremities exam: Present full ROM Back Exam Back exam: Absent CVA tenderness (R) or CVA tenderness (L) Neurological Exam Neurological exam: Present alert and oriented X3; Absent motor sensory deficit Psychiatric Psychiatric exam: Present normal affect and normal mood Skin Skin exam: Present warm and dry Medical Decision Making Medical Records Medical records reviewed: Yes I reviewed the patient's medical records. MR Comment: Most recent PCP note demonstrated concern for recurrent urinary tract infection, I reviewed urine dipstick from that visit which did not demonstrate significant findings of UTI, however patient was started on Bactrim. Patient was also given a referral to cardiology however they have not yet contacted her. Gavin Inquiry Pt receiving controlled substance: No Vital Signs: 04/08/24 03:30 04/08/24 04:48 04/08/24 05:00 Temperature 97.4 F L Temperature Source Oral Pulse Rate 76 77 Pulse Rate [Right Radial] 84 Respiratory Rate 18 Blood Pressure 160/100 H 162/77 H Blood Pressure [Right Arm] 173/86 H Blood Pressure Mean 107 105 Blood Pressure Mean [Right Arm] 115 Blood Pressure Source [Right Arm] Automatic Cuff Blood Pressure Position [Right Arm] Sitting 02 Sat by Pulse Oximetry 97 99 99 Oxygen Delivery Method Room Air Room Air Room Air Lab Data Lab Results 04/08/24 04:00: WBC 5.2, RBC 4.08 L, Hgb 12.5, Hct 37.1, MCV 91.1, MCH 30.7, MCHC 33.7, RDW 14.2, Plt Count 226, MPV 8.3, Neut % (Auto) 62.0, Lymph % (Auto) 24.8, Tate % (Auto) 7.5, Eos % (Auto) 4.7, Baso % (Auto) 1.0, Neut # (Auto) 3.2, Lymph # (Auto) 1.3, Tate # (Auto) 0.4, Eos # (Auto) 0.2, Baso # (Auto) 0.1, PT 10.1, INR 0.89 L, Sodium 134 L, Potassium 3.6, Chloride 103, Carbon Dioxide 26, Anion Gap 8.6, BUN 15, Creatinine 0.80, Estimated Creat Clear 56, Estimated GFR 69, Est GFR ( Amer) 83, Glucose 99, Calcium 9.2, Total Bilirubin 0.5, AST 34, ALT 28, Alkaline Phosphatase 38, Total Protein 7.2, Albumin 4.1, Globulin 3.1, Albumin/Globulin Ratio 1.3 04/08/24 04:18: Urine Color Yellow, Urine Appearance Clear, Urine pH 6.5, Ur Specific [place] 1.015, Urine Protein Negative, Urine Glucose (UA) Negative, Urine Ketones Negative, Urine Blood 1+, Urine Nitrate Negative, Urine Bilirubin Negative, Urine Urobilinogen 0.2, Ur Leukocyte Esterase Negative, Urine RBC 3-5, Urine WBC 3-5, Ur Squamous Epith Cells 5-10, Urine Bacteria Trace 04/08/24 04:00 04/08/24 04:00 Orders (Tests/Meds): ED MEDICATIONS Generic Name Dose Route Start Last Admin Trade Name Freq PRN Reason Stop Dose Admin Sodium Chloride 10 ml 04/08/24 04:37 04/08/24 04:38 Sodium Chloride 0.9% 10ml Syr (Rad Only) IV 05/08/24 04:36 10 ml NEEDED PRN Administration Maintain IV Site Discontinued Medications Generic Name Dose Route Start Last Admin Trade Name Freq PRN Reason Stop Dose Admin Lactated Ringer's 1,000 mls @ 999 mls/hr 04/08/24 03:56 04/08/24 04:00 Lactated Ringer's 1000 Ml Bag IV 04/08/24 04:56 999 mls/hr .Q1H1M ONE Administration Iopamidol 75 ml 04/08/24 04:37 04/08/24 04:38 Iopamidol-370 (76%);100ml Bottle IV 04/08/24 04:38 75 ml ONCE ONE Administration Tamsulosin HCl 0.4 mg 04/08/24 04:10 04/08/24 04:12 Tamsulosin 0.4mg Capsule PO 04/08/24 04:11 0.4 mg ONCE ONE Administration ORDERS Category Date Time Status CT abdomen pelvis w con Stat Cat Scan 04/08/24 03:37 Completed POCUS Point of Care (ER Only) Stat Exams 04/08/24 03:41 Taken CBC w/Auto Diff [Complete Blood Count Auto Diff] Stat Lab 04/08/24 04:00 Completed CMP [Comprehensive Metabolic Panel] Stat Lab 04/08/24 04:00 Completed PT INR [Prothrombin Time INR] Stat Lab 04/08/24 04:00 Completed Urinalysis and Microscopic Stat Lab 04/08/24 04:18 Completed Medical Decision Narrative: In summary, this 83-year-old female presents to the emergency department today with inability to urinate. On initial evaluation patient is hemodynamically stable, afebrile, mild suprapubic tenderness to palpation without rebound or guarding, no flank pain, no fevers, no other abnormalities on exam. Differential diagnosis includes but is not limited to urinary retention, medication side effect, neurogenic bladder, malignancy or physical obstruction, bladder stone, nephrolithiasis, ureterolithiasis, hydronephrosis, kidney dysfunction. Based on these concerns, I ordered [id number] ultrasound which I personally performed and interpreted at bedside, IV fluids, urinalysis, serum labs to assess kidney function, CT abdomen pelvis. Patient received IV fluids for treatment to encourage urination. She also received 1 dose of tamsulosin. [id number] ultrasound demonstrated urine in the bladder, approximately 30-45 mL based on based off bladder size, no findings of hydronephrosis. See procedure note for details. Patient was able to spontaneously void. Labs personally reviewed demonstrate no leukocytosis or anemia, platelets normal at 226, PT/INR unremarkable, trace hyponatremia, nonactionable at this time, remainder of electrolytes within normal limits, good kidney function with BUN 15, creatinine 0.8, UA with only trace bacteria, few WBCs, negative nitrates, small blood consistent with prior. No findings of infection. Patient is already on Bactrim and has been for the last 2 days so I will not be changing this medication at this time. I did review most recent urine culture from 04/05 which did grow gram-negative rods. Bactrim should be appropriate for this at this time. Repeat bladder ultrasound after voiding demonstrates decompressed bladder. She does not appear to have significant retention. CT imaging personally interpreted demonstrate no hydronephrosis, no stones, no acute intra-abdominal pathology. See radiology read for final interpretation. Patient has urinated multiple times in the ER. She does not require Gandhi catheter. I did prescribe tamsulosin for a short course of outpatient management. Also referred the patient to Dr. Santos for urology follow-up. Patient was given instructions on symptomatic management, follow up instructions, and return precautions for the emergency department. Patient indicated understanding and was discharged in stable condition. Procedures Miscellaneous Procedure Procedure Performed: Limited renal ultrasound Indication: A focused ultrasound of the kidneys was performed to evaluate for hydronephrosis and nephrolithiasis. The ultrasound was performed with the following indications, as noted in the H&P: Urinary retention, suprapubic pain Identified structures: Both kidneys Bladder Findings: Bilateral kidneys Normal with no hydronephrosis Left kidney 9.25 cm x 4.68 cm, right kidney 8.25 cm x 4.03 cm Bladder contains urine, it measures 7.02 x 2.38 x 3.81 cm, approximately 30-45 mL volume depending on the calculation used Impression: Normal limited renal ultrasound with urine in the bladder but no bladder distention Images were saved to permanent archive The study was technically adequate CPT: 22406-32 This study was performed by me, and I personally interpreted all images/videos. Based on my clinical judgement, these images were adequate and did not necessitate further imaging. Critical Care Critical Care Time Critical Care Time: No
[2024-04-08] MEDS: LACTATED RINGERS 1000ML 1,000 ML 999 ML IV (04:00)
[2024-04-08 04:07] LABS: Basophils # 0.1 K/mm3 (0-0.2); Eosinophils # 0.2 K/mm3 (0.0-0.4); Eosinophils % 4.7 % (0.1-12.0); Hematocrit 37.1 % (37.0-47.0); Hemoglobin 12.5 g/dL (12.2-16.2); Lymphocytes # 1.3 K/mm3 (0.7-4.5); Lymphocytes % 24.8 % (10-50); Mean Corpuscular HGB Conc 33.7 g/dL (31.8-35.4); Mean Corpuscular Hemoglobin 30.7 pg (27.0-31.2); Mean Corpuscular Volume 91.1 fl (81-99); Mean Platelet Volume 8.3 fl (7.4-10.4); Monocytes # 0.4 K/mm3 (0.1-1.0); Monocytes % 7.5 % (1.7-9.3); Neutrophils # 3.2 K/mm3 (1.8-7.8); Platelet Count 226 K/mm3 (142-424); Red Blood Count 4.08 M/mm3 (4.20-5.40); Red Cell Distribution Width 14.2 % (11.5-17.5); White Blood Count 5.2 K/mm3 (4.8-10.8)
[2024-04-08 04:12] LABS: Chloride 103 mmol/L (98-107); Sodium 134 mmol/L (136-145)
[2024-04-08] MEDS: TAMSULOSIN 0.4MG CAPSULE 0.4 MG PO (04:12)
[2024-04-08 04:13] LABS: Potassium 3.6 mmoL/L (3.5-5.1)
[2024-04-08 04:15] LABS: Alanine Aminotransferase 28 U/L (12-78); Albumin Level 4.1 g/dl (3.5-5.0); Albumin/Globulin Ratio 1.3 (1.1-1.8); Alkaline Phosphatase 38 U/L (38-126); Anion Gap 8.6 mEq/L (5-15); Aspartate Amino Transferase 34 U/L (14-36); Bilirubin,Total 0.5 mg/dl (0.2-1.3); Blood Urea Nitrogen 15 mg/dl (7-17); Carbon Dioxide 26 mmol/L (22.0-30.0); Creatinine Clearance Estimated 56 mL/min (50-200); Estimated Glomerular Filt Rate 69 ml/min (>60); GFR (African American) 83 ML/MIN (>60); Globulin 3.1 g/dL (1.3-3.2); Total Protein,Serum 7.2 g/dl (6.3-8.2)
[2024-04-08 04:16] LABS: Calcium 9.2 mg/dl (8.4-10.2); Glucose 99 mg/dl (74-100); INR 0.89 (0.9-1.1); Prothrombin Time 10.1 seconds (10.1-12.5)
--- NOTE | 2024-04-08 04:25 | PC.NURSE ---
Pt to CT
[2024-04-08 04:26] LABS: Microscopic, Urine URINE MICROSCOPIC (MICROSCOPIC)
[2024-04-08 04:28] LABS: Appearance,Urine CLEAR (Clear); Bilirubin,Urine Negative (Negative); Blood, Urine 1+ (Negative); Color,Urine YELLOW (Yellow); Glucose,Urine (UA) Negative (Negative); Ketones,Urine Negative (Negative); Leukocyte Esterase,Urine Negative (Negative); Nitrate,Urine Negative (Negative); PH,Urine 6.5 (5.0-8.5); Protein,Urine Negative (Negative); Specific Gravity, Urine 1.015 (1.005-1.030); Urobilinogen,Urine 0.2 EU/dl (0.2)
[2024-04-08] MEDS: SODIUM CHLORIDE 0.9% 10ML SYR (RAD ONLY) 10 ML IV (04:38)
[2024-04-08] MEDS: IOPAMIDOL-370 (76%);100ML BOTTLE 75 ML IV (04:38)
[2024-04-08 04:48] VITALS: BP 160/100; PULSE 76; O2SAT 99
[2024-04-08 05:00] VITALS: BP 162/77; PULSE 77; O2SAT 99
[2024-04-08 05:24] LABS: Bacteria,Urine Trace /lpf
[2024-04-08 05:59] VITALS: BP 131/59; PULSE 77; RESP 18; TEMP 37.1; O2SAT 97
== END 2024-04-08 06:04 | disposition home or self-care (01) ==
PROVIDERS: Emergency Provider Emergency Medicine; PCP Nurse Practitioner
DX: R10.30 Lower abdominal pain, unspecified (principal); R33.9 Retention of urine, unspecified; Z86.73 Personal history of transient ischemic attack (TIA), and cerebral infarction without residual deficits; I10 Essential (primary) hypertension; E78.5 Hyperlipidemia, unspecified; K21.9 Gastro-esophageal reflux disease without esophagitis
CPT/HCPCS: 74177; 80053; 81001; 85025; 85610; 96360; 99285; J7120; Q9967

== ENCOUNTER 2024-04-11 13:42 | Outpatient (CLI) | payer MEDICARE, SELFPAY ==
[2024-04-11 16:22] LABS: Microscopic,Cath URINE MICROSCOPIC (MICROSCOPIC)
[2024-04-11 18:06] LABS: Appearance,Urine/Cath CLEAR (Clear); Bilirubin,Cath Negative (Negative); Blood, Urine/Cath TRACE-I (Negative); Color,Urine/Cath YELLOW (Yellow); Glucose,Urine/Cath (UA) Negative (Negative); Ketones,Urine/Cath Negative (Negative); Leukocyte Esterase,Cath Negative (Negative); Nitrate,Cath Negative (Negative); PH,Urine/Cath 6.5 (5.0-8.5); Protein,Urine/Cath Negative (Negative); Specific Gravity, Urine/Cath >= 1.030 (1.005-1.030); Urobilinogen,Cath 0.2 EU/dl (0.2)
[2024-04-11 19:59] LABS: RBC,Urine/Cath Occasional # /hpf (0-3)
[2024-04-16 20:09] LABS: Atopobium vaginae Low - 0 Score (.); BVAB2 Low - 0 Score (.); Candida albicans NAA Negative (Negative); Candida glabrata Negative (Negative); Chlamydia Trachomatis NAA Negative (Negative); HSV 1 NAA Negative (Negative); HSV 2 NAA Negative (Negative); Megasphaera 1 Low - 0 Score (.); Neisseria gonorrhoeae NAA Negative (Negative); Trich vag NAA Negative (Negative)
== END 2024-04-11 23:59 | disposition home or self-care (01) ==
LOC: LAB.DROPOF 04-12 08:13
PROVIDERS: PCP Urology; Visit Provider Urology
DX: R33.9 Retention of urine, unspecified (principal); N81.89 Other female genital prolapse; N39.0 Urinary tract infection, site not specified
CPT/HCPCS: 81001; 87491; 87529; 87591; 87661; 87798; 87801

== ENCOUNTER 2024-04-15 08:24 | Day surgery (SDC) | payer MEDICARE, SELFPAY ==
[2024-04-15 08:56] VITALS: BP 166/84; PULSE 81; RESP 18; TEMP 36.7; O2SAT 98
[2024-04-15] MEDS: 0.9 % SODIUM CHLORIDE 1000ML 1,000 ML 25 ML IV (09:33)
[2024-04-15 09:37] VITALS: BP 150/80; PULSE 80; RESP 18; TEMP 36.5; O2SAT 97
[2024-04-15 14:02] LABS: Microscopic,Cath URINE MICROSCOPIC (MICROSCOPIC)
[2024-04-15 14:08] LABS: Appearance,Urine/Cath CLEAR (Clear); Bilirubin,Cath Negative (Negative); Blood, Urine/Cath 1+ (Negative); Color,Urine/Cath YELLOW (Yellow); Glucose,Urine/Cath (UA) Negative (Negative); Ketones,Urine/Cath Negative (Negative); Leukocyte Esterase,Cath Negative (Negative); Nitrate,Cath Negative (Negative); Protein,Urine/Cath Negative (Negative); Specific Gravity, Urine/Cath >= 1.030 (1.005-1.030); Urobilinogen,Cath 0.2 EU/dl (0.2)
[2024-04-15 15:21] LABS: Mucus,Urine/Cath 3+ /lpf
--- NOTE | 2024-04-16 07:02 | [facility].PROCNOTE ---
[facility] Procedure Note Date: 04/15/24 Time: 08:30 Procedure Note:: Chart review: The patient is troubled with recurrent urinary tract infection. She had a Citrobacter UTI on 04/20. Her CT scan with infusion on 04/20 is urologically negative. Patient currently is on Estrace and Flomax. She was unable to pay for the Myrbetriq and would like to give Ditropan a trial. : Preop diagnosis UTI Postop diagnosis UTI/urethritis. Operative note: The patient was brought to the cystoscopy suite and prepped and draped in the standard fashion. She underwent catheterization for a urine analysis and culture and sensitivity. Patient underwent flexible cystoscopy. Her urethra demonstrates significant urethritis. This very well may account for some of her symptoms of UTI. She has small bladder diverticuli and some trabeculation in the posterior bladder wall. The patient tolerated the procedure well. She will come in follow-up in a few weeks.
== END 2024-04-15 09:46 | disposition home or self-care (01) ==
PROVIDERS: PCP Family Medicine; Visit Provider Urology
PROC: 0TJB8ZZ Inspection of Bladder, Via Natural or Artificial Opening Endoscopic (ICD-10-PCS; CPT 52000; principal; 2024-04-15 09:45)
DX: N34.2 Other urethritis (principal); R35.1 Nocturia; N30.90 Cystitis, unspecified without hematuria
CPT/HCPCS: 52000; 81001

== ENCOUNTER 2024-06-24 08:54 | Outpatient (CLI) | payer MEDICARE, SELFPAY ==
[2024-06-24 16:53] LABS: Basophils # 0.1 K/mm3 (0-0.2); Basophils % 0.8 % (0.1-2.0); Eosinophils # 0.2 K/mm3 (0.0-0.4); Eosinophils % 2.9 % (0.1-12.0); Hematocrit 43.6 % (37.0-47.0); Hemoglobin 14.2 g/dL (12.2-16.2); Lymphocytes # 0.9 K/mm3 (0.7-4.5); Lymphocytes % 15.1 % (10-50); Mean Corpuscular HGB Conc 32.6 g/dL (31.8-35.4); Mean Corpuscular Hemoglobin 30.5 pg (27.0-31.2); Mean Corpuscular Volume 93.5 fl (81-99); Mean Platelet Volume 9.4 fl (7.4-10.4); Monocytes # 0.5 K/mm3 (0.1-1.0); Monocytes % 8.4 % (1.7-9.3); Neutrophils # 4.2 K/mm3 (1.8-7.8); Neutrophils % 72.8 % (37.0-80.0); Platelet Count 264 K/mm3 (142-424); Red Blood Count 4.66 M/mm3 (4.20-5.40); Red Cell Distribution Width 14.1 % (11.5-17.5); White Blood Count 5.8 K/mm3 (4.8-10.8)
[2024-06-24 17:52] LABS: Alanine Aminotransferase 21 U/L (12-78); Albumin Level 4.4 g/dl (3.5-5.0); Albumin/Globulin Ratio 1.5 (1.1-1.8); Alkaline Phosphatase 45 U/L (38-126); Anion Gap 6.2 mEq/L (5-15); Aspartate Amino Transferase 28 U/L (14-36); Bilirubin,Total 0.8 mg/dl (0.2-1.3); Blood Urea Nitrogen 17 mg/dl (7-17); Calcium 9.4 mg/dl (8.4-10.2); Carbon Dioxide 30 mmol/L (22.0-30.0); Chloride 98 mmol/L (98-107); Estimated Glomerular Filt Rate 96 ml/min (>60); GFR (African American) 116 ML/MIN (>60); Glucose 91 mg/dl (74-100); Potassium 3.2 mmoL/L (3.5-5.1); Sodium 131 mmol/L (136-145); Total Protein,Serum 7.4 g/dl (6.3-8.2)
[2024-06-24 18:09] LABS: 25-OH Vitamin D, Total 43.1 ng/mL (30-100)
== END 2024-06-24 23:59 | disposition home or self-care (01) ==
LOC: LAB.DROPOF 06-27 08:55
PROVIDERS: PCP Family Medicine; Visit Provider Family Medicine
DX: E78.5 Hyperlipidemia, unspecified (principal); E55.9 Vitamin D deficiency, unspecified; N30.90 Cystitis, unspecified without hematuria
CPT/HCPCS: 80053; 82306; 84443; 85025

== ENCOUNTER 2024-06-29 07:15 | Day surgery (SDC) | payer MEDICARE, SELFPAY ==
[2024-06-29 07:23] VITALS: BMI 20.9
[2024-06-29 07:54] VITALS: BP 159/87; PULSE 75; PULSE 82; RESP 20; O2SAT 99
[2024-06-29] MEDS: LIDOCAINE 2% W/EPI 1:100,000 20ML VIAL 20 ML SQ (08:07)
[2024-06-29] MEDS: CEFAZOLIN SODIUM 1 GM in 0.9 % SODIUM CHLORIDE 50 ML IV (08:07)
[2024-06-29 09:06] VITALS: BP 167/93; PULSE 84; RESP 20; O2SAT 100
--- NOTE | 2024-06-29 10:09 | EXP.LOOP ---
[facility] Loop Recorder Date: 06/29/24 Time: 08:30 Procedure Performed:: Implantation of loop recorder Indication:: Cryptogenic stroke Technique:: Patient was brought to the cardiac Inspection Machine Tender. After informed consent obtained, 1% lidocaine with epinephrine was used to anesthetize the site along the left anterior aspect of the chest near the sternal border. Using the preformed scalpel, an incision was made and using the supplied preloaded apparatus, the loop recorder was placed subcutaneously without difficulty. Following the deployment of the loop recorder interrogation of the device was performed to ensure appropriate voltage was being detected. Once this was verified, Steri-Strips were placed over the incision and the patient was prepped to discharge home. Patient tolerated the procedure well with minimal discomfort. Impression:: Successful implantation of loop recorder Serial Number:: [employer] EL plus Model number [id number] Serial #[id number] Plan:: Routine postop care
== END 2024-06-29 09:18 | disposition home or self-care (01) ==
PROVIDERS: PCP Family Medicine; Visit Provider Internal Medicine
DX: Z45.09 Encounter for adjustment and management of other cardiac device (principal); I63.9 Cerebral infarction, unspecified; Z79.899 Other long term (current) drug therapy; I10 Essential (primary) hypertension
CPT/HCPCS: 33285; C1764; J0690

== ENCOUNTER 2024-07-13 08:10 | Outpatient (CLI) | payer MEDICARE, SELFPAY | END 2024-07-13 23:59 | disposition home or self-care (01) | LOC: RT 08:11 | PROVIDERS: Visit Provider Specialist | DX: R94.09 Abnormal results of other function studies of central nervous system (principal); G31.84 Mild cognitive impairment of uncertain or unknown etiology | CPT/HCPCS: 94762 ==

== ENCOUNTER 2024-07-15 10:29 | Outpatient (CLI) | payer MEDICARE, SELFPAY ==
[2024-07-15 18:30] LABS: Chloride 101 mmol/L (98-107)
[2024-07-15 18:31] LABS: Albumin Level 4.2 g/dl (3.5-5.0); Potassium 3.6 mmoL/L (3.5-5.1); Sodium 135 mmol/L (136-145)
[2024-07-15 18:33] LABS: Anion Gap 8.6 mEq/L (5-15); Blood Urea Nitrogen 16 mg/dl (7-17); Carbon Dioxide 29 mmol/L (22.0-30.0); Estimated Glomerular Filt Rate 96 ml/min (>60); GFR (African American) 116 ML/MIN (>60)
[2024-07-15 18:34] LABS: Alanine Aminotransferase 19 U/L (12-78); Albumin/Globulin Ratio 1.6 (1.1-1.8); Alkaline Phosphatase 41 U/L (38-126); Aspartate Amino Transferase 28 U/L (14-36); Bilirubin,Total 0.6 mg/dl (0.2-1.3); Calcium 9.4 mg/dl (8.4-10.2); Globulin 2.7 g/dL (1.3-3.2); Glucose 102 mg/dl (74-100); Total Protein,Serum 6.9 g/dl (6.3-8.2)
== END 2024-07-15 23:59 | disposition home or self-care (01) ==
LOC: LAB.DROPOF 07-18 10:29
PROVIDERS: PCP Family Medicine; Visit Provider Family Medicine
DX: R53.83 Other fatigue (principal)
CPT/HCPCS: 80053

== ENCOUNTER 2024-07-22 14:25 | Outpatient (CLI) | payer MEDICARE, SELFPAY ==
--- NOTE | 2024-07-22 15:13 | PC.NURSE ---
Pt unable to follow commands for PFT. 6 MWT completed. Attempted to call Dr Gonzalez's office, voicemail left.
== END 2024-07-22 23:59 | disposition home or self-care (01) ==
LOC: RT 14:26
PROVIDERS: PCP Family Medicine; Visit Provider Specialist
DX: G47.34 Idiopathic sleep related nonobstructive alveolar hypoventilation (principal)
CPT/HCPCS: 94618

== ENCOUNTER 2024-07-29 10:47 | Outpatient (CLI) | payer MEDICARE, SELFPAY | END 2024-07-29 23:59 | disposition home or self-care (01) | LOC: LAB.DROPOF 08-01 10:47 | PROVIDERS: PCP Nurse Practitioner Family; Visit Provider Nurse Practitioner Family | DX: N39.0 Urinary tract infection, site not specified (principal) | CPT/HCPCS: 87086 ==

== ENCOUNTER 2024-08-22 09:08 | Outpatient (CLI) | payer MEDICARE, SELFPAY ==
[2024-08-22 09:51] LABS: Basophils # 0.1 K/mm3 (0-0.2); Basophils % 0.8 % (0.1-2.0); Eosinophils # 0.1 K/mm3 (0.0-0.4); Eosinophils % 0.9 % (0.1-12.0); Hematocrit 40.1 % (37.0-47.0); Hemoglobin 13.7 g/dL (12.2-16.2); Lymphocytes % 17.2 % (10-50); Mean Corpuscular HGB Conc 34.1 g/dL (31.8-35.4); Mean Corpuscular Hemoglobin 30.2 pg (27.0-31.2); Mean Corpuscular Volume 88.5 fl (81-99); Mean Platelet Volume 7.6 fl (7.4-10.4); Monocytes # 0.3 K/mm3 (0.1-1.0); Monocytes % 5.9 % (1.7-9.3); Neutrophils # 4.3 K/mm3 (1.8-7.8); Neutrophils % 75.2 % (37.0-80.0); Platelet Count 241 K/mm3 (142-424); Red Blood Count 4.53 M/mm3 (4.20-5.40); Red Cell Distribution Width 13.9 % (11.5-17.5); White Blood Count 5.8 K/mm3 (4.8-10.8)
[2024-08-22 10:03] LABS: Chloride 101 mmol/L (98-107); Sodium 138 mmol/L (136-145)
[2024-08-22 10:04] LABS: Potassium 3.5 mmoL/L (3.5-5.1)
[2024-08-22 10:06] LABS: Blood Urea Nitrogen 21 mg/dl (7-17); Estimated Glomerular Filt Rate 80 ml/min (>60); GFR (African American) 97 ML/MIN (>60)
[2024-08-22 10:07] LABS: Anion Gap 12.5 mEq/L (5-15); Calcium 9.6 mg/dl (8.4-10.2); Carbon Dioxide 28 mmol/L (22.0-30.0); Chol/HDL Ratio 1.9 (1-3.5); Cholesterol 147 mg/dl (140-200); Glucose 99 mg/dl (74-100); HDL Cholesterol 79 mg/dl (40-60); Triglycerides 109 mg/dl (30-150); VLDL Cholesterol 22 mg/dL (0-40)
[2024-08-22 10:18] LABS: Direct LDL Cholesterol 49.45 mg/dL (100-129)
== END 2024-08-22 23:59 | disposition home or self-care (01) ==
LOC: LAB 09:09
PROVIDERS: PCP Family Medicine; Visit Provider Physician Assistant
DX: R07.9 Chest pain, unspecified (principal); R53.83 Other fatigue; R53.1 Weakness; K21.9 Gastro-esophageal reflux disease without esophagitis; E78.49 Other hyperlipidemia
CPT/HCPCS: 36415; 80048; 80061; 85025

== ENCOUNTER 2024-08-30 11:52 | Outpatient (CLI) | payer MEDICARE, SELFPAY ==
--- NOTE | 2024-08-30 11:53 | CT_ITS ---
APPROVED REPORT Chip Drier: CLINICAL INDICATION Chest Pain TECHNIQUE Image Acquisition: A 128 slice MDCT scanner ([employer] View) was used for data acquisition. A noncontrast coronary calcium scan was performed. A CT attenuation threshold of 130 Hounsfield units (HU) was used for the detection of calcium in contiguous voxels of 1 sq mm in area to be counted as individual lesions. Bolus tracking in the ascending aorta with a threshold of 180 HU was performed. Immediately afterwards, ECG synchronized cardiac CT was then performed from the cardiac base to apex using retrospective gating with ECG tube current modulation. A total of 85 mL of Isovue 370 mg/mL contrast medium was administered at 5 mL/sec followed by a saline flush using a biphasic injection protocol. A tube voltage of 120 KVp was used. The patient received the following medications prior to the cardiac CT. 50 mg of oral metoprolol 15 mg of oral ivabradine 0.8 mg of sublingual nitroglycerin The average heart rate at the time of acquisition was 57 bpm and regular. Image Reconstruction Transaxial images were reconstructed at 0.67 mm slide thickness. Data was reviewed interactively on an advanced workstation capable of 2 and 3-dimensional displays in all conventional reconstruction formats, including multiplanar reformations, maximum intensity projections, curved multiplanar reformations, and volume rendered reconstructions. When applicable, selected routine images describing the relevant coronary anatomy and pathology were saved and sent to PACS. Complications None Technical Quality Overall image quality was suboptimal due to significant motion and blurring artifact. Coronary artery opacification was adequate. Total DLP (Dose-Length Product) is 1778.4 mGy-cm. The reported value represents the total of one or more individual components during the CT acquisition of this date and at this time, and as such, the same value may appear in more than one CT report depending on the interpreting/reporting physicians. COMPARISON None FINDINGS CT Coronary Calcium Scoring LMA (Left Main Artery) = 0 LAD (Left Anterior Descending) = 856 LCX (Left Coronary Circumflex) = 0 RCA (Right Coronary Artery) = 675 Total Calcium Score = 1531 using the AJ-130 method. The observed calcium score of 1531 is at 94th percentile for subjects of the same age, sex, and race/ethnicity. The interpretation of the calcium heart score is based on the following continuum*: 0 = no calcified plaque detected (risk of coronary artery disease is very low ??? less than 5%) 1-10 = calcium detected in extremely minimal levels (risk of coronary diseases is still low ??? less than 10%) 11-100 = mild levels of plaque detected with certainty (mild or minimal narrowing of heart arteries is likely) 101-400 = definite,at least moderate levels of plaque detected (relatively high risk of a heart attack within 3-5 years) >401-999 = extensive levels of plaque detected (high risk of heart attack, high levels of vascular disease are present, high likelihood of at least one significant coronary narrowing) *The calcium heart score quantifies the burden of coronary calcification/plaque in the coronary arteries. The calcium heart score is not able to evaluate the presence or burden of non-calcified (i.e. soft) plaque. There is also calcification in the ascending and descending thoracic aorta, as well as the left renal artery. Coronary CT Angiography The coronary arterial system is right dominant. Quantitative Stenosis Grading: Left Main (LM): The left main originates normally from the left sinus of Valsalva. The LM bifurcates into the left anterior descending artery and left circumflex artery. The LM is patent with no evidence of atherosclerosis. Left Anterior Descending (LAD) and Diagonal Branches: The LAD gives off 2 diagonal branch(es). There is mixed calcified/noncalcified plaque in the proximal LAD and first diagonal branch, with up to 70-90% luminal stenosis. There is no evidence of LAD-myocardial bridge. Left Circumfle There is t(LCX) and Obtuse Marginals (OM): The LCX gives off 1 Obtuse Marginal (OM) branch(es). There is mixed calcified/noncalcified plaque in the proximal LCx, with 25-50% luminal stenosis. Right Coronary Artery (RCA): The RCA originates normally from the right sinus of Valsalva. The RCA gives off a posterior descending artery (PDA) and posterolateral (PL) branches. A segment of the proximal and mid RCA segment is not well-visualized due to significant motion. There is mixed calcified/noncalcified plaque in the proximal RCA segment with approximately up to 50 to 70% luminal stenosis. Non-Coronary Cardiac Findings: Analysis of the left ventricular (LV) structure and function was performed after 3-D reconstruction of the LV from axial images, with user-corrected automatic contouring for assessment of LV volumes and user-defined reconstruction from oblique planes for measurement of 3-D cardiac structure and function. -The left ventricle systolic function is normal. -There is no left atrial appendage filling defect. Two right pulmonary veins and two left pulmonary veins drain normally into the left atrium. -No pericardial thickening or calcification. -Central and branch pulmonary arteries in the [id number] are unremarkable. -Thoracic aorta within the visualized thoracic aortic-branches in the [id number] is unremarkable. Extracardiac Structures No significant extra-cardiac findings. Note, however, that this study is focused on the cardiac findings. IMPRESSION -Image quality was suboptimal due to significant motion and blurring artifact. This may affect the diagnostic interpretation of the study findings. -Presence of coronary calcification with an Agatston score = 1531 using the AJ-130 method. -The observed calcium score of 1531 is at 94th percentile for subjects of the same age, sex, and race/ethnicity. -Presence of multivessel atherosclerotic coronary disease with possible evidence of significant flow-limiting atherosclerosis of the proximal LAD. -CAD-RADS 4A. Management recommendations per ACC/AHA guidelines*, as clinically appropriate. -Calcification in the ascending and descending thoracic aorta, as well as the left renal artery. *Recommendations: CAD RADS 0: Reassurance. Consider non-atherosclerotic causes of chest pain. CAD RADS 1: Consider non-atherosclerotic causes of chest pain. Consider preventive therapy and risk factor modification. CAD RADS 2: Consider non-atherosclerotic causes of chest pain. Consider preventive therapy and risk factor modification, particularly for patients with nonobstructive plaque in multiple segments. CAD RADS 3: Consider further functional testing. Consider symptom-guided anti-ischemic and preventive pharmacotherapy as well as risk factor modification per published guideline statements. CAD RADS 4A: Consider further functional testing or invasive coronary angiography with revascularization per published guideline statements. Consider symptom-guided anti-ischemic and preventive pharmacotherapy as well as risk factor modification per published guideline statements. CAD RADS 4B: Invasive coronary angiography recommended with revascularization per published guideline statements. Consider symptom-guided anti-ischemic and preventive pharmacotherapy as well as risk factor modification per published guideline statements. CAD RADS 5: Consider invasive angiography and/or viability assessment with revascularization per published guideline statements. Consider symptom-guided anti-ischemic and preventive pharmacotherapy as well as risk factor modification per published guideline statements. CRITICAL RESULT None COMMUNICATION Per this written report The coronary and cardiac findings of this CCTA were reviewed, reported, and signed by Arturo Phillips MD (Bond Clerk) Conclusion Electronically signed by : Maxine Phillips MD 09/05/2024 14:29:31
[2024-08-30 12:09] VITALS: BMI 18.5
[2024-08-30 12:16] VITALS: BP 153/72; PULSE 75; RESP 16; TEMP 36.6; O2SAT 98
[2024-08-30] MEDS: METOPROLOL TARTRATE 50MG TABLET PO (12:27)
[2024-08-30] MEDS: IVABRADINE HCL 7.5MG TABLET PO (12:27)
[2024-08-30 13:15] VITALS: BP 192/92; PULSE 65; RESP 18; O2SAT 99
[2024-08-30 13:18] VITALS: BP 149/68; PULSE 60; RESP 18; O2SAT 98
[2024-08-30] MEDS: NITROGLYCERIN 0.4MG SL TABLET SL (13:18)
[2024-08-30 13:21] VITALS: BP 133/64; PULSE 53; RESP 18; O2SAT 98
[2024-08-30] MEDS: 0.9 % SODIUM CHLORIDE 50 ML VIAL IV (13:30)
[2024-08-30] MEDS: IOPAMIDOL-370 (76%);100ML BOTTLE 85 ML IV (13:31)
[2024-08-30] MEDS: SODIUM CHLORIDE 0.9% 10ML SYR (RAD ONLY) 10 ML IV (13:31)
[2024-08-30 13:34] VITALS: BP 139/65; PULSE 58; RESP 18; O2SAT 98
== END 2024-08-30 13:34 | disposition home or self-care (01) ==
PROVIDERS: PCP Family Medicine; Visit Provider Physician Assistant
DX: R94.31 Abnormal electrocardiogram [ECG] [EKG] (principal); R07.9 Chest pain, unspecified; R53.83 Other fatigue; R53.1 Weakness; K21.9 Gastro-esophageal reflux disease without esophagitis
CPT/HCPCS: 75574; Q9967

== ENCOUNTER 2024-09-26 08:20 | Day surgery (SDC) | payer MEDICARE, SELFPAY ==
[2024-09-26] VITALS (13 sets, daily range): BP systolic 91–167; BP diastolic 56–87; PULSE 64–85; RESP 16–22; TEMP 36.1; O2SAT 94–100; BMI 17.7
--- NOTE | 2024-09-26 07:10 | IR_ITS ---
APPROVED REPORT Patient Location: Outpatient PROCEDURES Left heart catheterization Left ventriculogram Selective coronary angiogram Drug-eluting stent deployment to the mid LAD INDICATION Coronary artery disease, Abnormal CCTA, Angina pectoris Informed consent was obtained prior to the procedure. COMPLICATIONS NONE Estimated Blood Loss: LESS THAN 10 ML TECHNIQUE One percent lidocaine used to anesthetize the right anterior aspect of the wrist. The right radial artery was accessed via the Seldinger technique. A 6 Turkish sheath was placed in the right radial artery. 2.5 mg of Verapamil, 800 mcg of nitroglycerin, 1mg Lidocaine and 5000 U Heparin were given through the arterial sheath. The 6 Turkish JL 3 catheter was also used to perform left heart catheterization, left ventriculogram and selective coronary angiogram. At the end of the diagnostic left coronary angiogram therapeutic Was administered giving a therapeutic ACT and a Choice PT extra-support guidewire was placed distally in the LAD. A 2.75 x 15 mm Jn frontier stent was deployed at 18 ledy reducing the severe stenosis to 0%. DAYRON-3 flow was present before and after the procedure. At the end of the procedure the catheter was then used to perform right coronary artery angiography as well as left heart catheterization and left ventriculogram. At the end the procedure the apparatus was removed the sheath was removed hemostasis was achieved using TR banding patient was transferred to the postop putting in stable condition ANGIOGRAPHIC RESULTS The left main artery Normal The left anterior descending artery Has proximal 20% calcified stenosis with a mid vessel concentric 70 to 80% calcified stenosis The circumflex artery Large-caliber mild 10% luminal regularities The right coronary artery Codominant with proximal and mid vessel calcified 30 to 40% stenoses The ROSENBERG ventriculogram reveals Slightly hyperdynamic at 70 to 75% The left ventricular end-diastolic pressure 10 mmHg IMPRESSION Severe mid LAD disease as described above Successful stenting the mid LAD severe disease reduced to 0% with 1 drug-eluting stent Moderate calcified disease in the right coronary artery which is nonischemic Slightly hyperdynamic ejection fraction Normal LVEDP PLAN 1. Plavix and aspirin 2. LDL less than 55 to be achieved with high intensity statin 3. Avoidance of tobacco products 4. Risk factor modification 5. Cardiac rehabilitation Electronically signed by : Sohail Brock MD 09/26/2024 10:36:53
[2024-09-26 08:55] LABS: Basophils % 0.5 % (0.1-2.0); Eosinophils # 0.1 K/mm3 (0.0-0.4); Eosinophils % 1.2 % (0.1-12.0); Hemoglobin 12.9 g/dL (12.2-16.2); Lymphocytes % 17.1 % (10-50); Mean Corpuscular HGB Conc 32.3 g/dL (31.8-35.4); Mean Corpuscular Hemoglobin 28.9 pg (27.0-31.2); Mean Corpuscular Volume 89.7 fl (81-99); Monocytes # 0.5 K/mm3 (0.1-1.0); Monocytes % 7.7 % (1.7-9.3); Neutrophils # 4.4 K/mm3 (1.8-7.8); Neutrophils % 73.2 % (37.0-80.0); Platelet Count 245 K/mm3 (142-424); Red Blood Count 4.46 M/mm3 (4.20-5.40); Red Cell Distribution Width 13.2 % (11.5-17.5)
[2024-09-26 09:53] LABS: Chloride 99 mmol/L (98-107); Potassium 3.3 mmoL/L (3.5-5.1); Sodium 137 mmol/L (136-145)
[2024-09-26 09:56] LABS: Anion Gap 12.3 mEq/L (5-15); Blood Urea Nitrogen 19 mg/dl (7-17); Carbon Dioxide 29 mmol/L (22.0-30.0); Creatinine Clearance Estimated 30 mL/min (50-200); Estimated Glomerular Filt Rate 80 ml/min (>60); GFR (African American) 97 ML/MIN (>60)
[2024-09-26 09:57] LABS: Calcium 9.3 mg/dl (8.4-10.2); Glucose 95 mg/dl (74-100)
[2024-09-26] MEDS: diphenhydrAMINE 50MG/ML VIAL 50 MG IV (10:09)
[2024-09-26] MEDS: VERAPAMIL 2.5MG/ML 2ML VIAL 2.5 MG IV (10:10)
[2024-09-26] MEDS: NITROGLYCERIN 800MCG/8ML SYR (CATH LAB) 800 MCG IA (10:10)
[2024-09-26] MEDS: HEPARIN 1,000 UNITS/ML 10ML VIAL (CATH LAB) 10000 UNIT IV (10:10)
[2024-09-26] MEDS: LIDOCAINE 1% 10ML MDV 20 ML IJ (10:11)
[2024-09-26] MEDS: 0.9 % SODIUM CHLORIDE 500 ML 25 ML IV (10:11)
[2024-09-26] MEDS: MIDAZOLAM HCL 1MG/ML 5ML VIAL 1 MG IV (10:11)
[2024-09-26] MEDS: FENTANYL 100MCG/2ML VIAL 50 MCG IV (10:11)
[2024-09-26] MEDS: HEPARIN 1,000 UNITS/500ML NS (CATH LAB) 3000 UNIT IV (10:12)
[2024-09-26] MEDS: CLOPIDOGREL 300MG TABLET 600 MG PO (11:01)
[2024-09-26] MEDS: IOPAMIDOL-370 (76%);100ML BOTTLE 85 ML IV (12:11)
[2024-09-26 12:14] LABS: CATHL Activated Clotting Time 215 SEC (74-125)
--- NOTE | 2024-09-28 09:17 | PC.NURSE ---
Patient and her called this nurse, head housekeeper, for patient having a rash to shoulder and arm. Patient and her concerned about new medication, Plavix, being the cause of the rash. Denies any SOA. RACH Valdes Cards in the dictation room and was notified of patient. Instructed patient to take 25 mg Benadryl and if the rash is not better by tomorrow to call the cardiology clinic or if the patient has any increase in symptoms come to ED to be evaluated. Patient instructed to keep taking her Plavix at this time.
== END 2024-09-26 13:50 | disposition home or self-care (01) ==
PROVIDERS: PCP Family Medicine; Visit Provider Internal Medicine
DX: I25.10 Atherosclerotic heart disease of native coronary artery without angina pectoris (principal); I77.1 Stricture of artery; I10 Essential (primary) hypertension; R93.1 Abnormal findings on diagnostic imaging of heart and coronary circulation; R07.9 Chest pain, unspecified; R94.31 Abnormal electrocardiogram [ECG] [EKG]; R53.1 Weakness; E78.49 Other hyperlipidemia; Z95.5 Presence of coronary angioplasty implant and graft; Z79.899 Other long term (current) drug therapy
CPT/HCPCS: 80048; 85025; 85347; 92928; 93458; 99152; 99153; C1725; C1769; C1874; C9600; J1200; J1644; J2250; J3010; Q9967

== ENCOUNTER 2024-09-29 10:33 | Outpatient (CLI) | payer MEDICARE, SELFPAY ==
[2024-09-29 11:32] LABS: Basophils % 0.7 % (0.1-2.0); Eosinophils # 0.1 K/mm3 (0.0-0.4); Hematocrit 37.8 % (37.0-47.0); Hemoglobin 12.1 g/dL (12.2-16.2); Lymphocytes # 1.1 K/mm3 (0.7-4.5); Lymphocytes % 18.1 % (10-50); Mean Corpuscular Hemoglobin 28.9 pg (27.0-31.2); Mean Corpuscular Volume 90.2 fl (81-99); Mean Platelet Volume 10.1 fl (7.4-10.4); Monocytes # 0.5 K/mm3 (0.1-1.0); Monocytes % 8.1 % (1.7-9.3); Neutrophils # 4.3 K/mm3 (1.8-7.8); Neutrophils % 70.8 % (37.0-80.0); Platelet Count 239 K/mm3 (142-424); Red Blood Count 4.19 M/mm3 (4.20-5.40); Red Cell Distribution Width 13.4 % (11.5-17.5)
[2024-09-29 11:53] LABS: Anion Gap 7.8 mEq/L (5-15); Blood Urea Nitrogen 23 mg/dl (7-17); Calcium 9.7 mg/dl (8.4-10.2); Carbon Dioxide 32 mmol/L (22.0-30.0); Chloride 100 mmol/L (98-107); Estimated Glomerular Filt Rate 80 ml/min (>60); GFR (African American) 97 ML/MIN (>60); Glucose 82 mg/dl (74-100); Potassium 3.8 mmoL/L (3.5-5.1); Sodium 136 mmol/L (136-145)
== END 2024-09-29 23:59 | disposition home or self-care (01) ==
PROVIDERS: PCP Family Medicine; Visit Provider Internal Medicine
DX: Z79.01 Long term (current) use of anticoagulants (principal); Z95.5 Presence of coronary angioplasty implant and graft
CPT/HCPCS: 36415; 80048; 85025

== ENCOUNTER 2024-11-03 14:07 | Outpatient (CLI) | payer MEDICARE, SELFPAY ==
--- NOTE | 2024-11-03 14:08 | CT_ITS ---
FINAL REPORT TECHNIQUE: Routine axial images were obtained from the lung apices to below the diaphragm following IV contrast administration. Individualized dose reduction techniques using automated exposure control or adjustment of the mA and/or kV according to the patient size were employed. CLINICAL HISTORY: Pulmonary AVM / Shunt COMPARISON: None FINDINGS: CT CHEST WITH CONTRAST: The ascending aorta measures up to 4 cm in greatest diameter. No mediastinal or hilar mass or adenopathy is identified. No infiltrates or effusions are identified. No pericardial effusion is noted. A calcified granuloma is present in the lingula. There is a partially visualized low-density in the left lobe of the liver, lateral segment, measuring 1.2 cm in size. This may represent a hepatic cyst, although the lesion is not seen in its entirety. IMPRESSION: Ascending aorta measures 4 cm in diameter. Partially visualized low-density in the left lobe of the liver, lateral segment, that may represent a hepatic cyst, although the lesion is not seen in its entirety. If clinically indicated, CT of the abdomen and pelvis with contrast might be helpful for further evaluation. Reviewed, Interpreted and Dictated by Madhu Waite MD Transcribed by Melissa Reynolds Authenticated and [facility]
[2024-11-03 14:42] LABS: Blood Urea Nitrogen 18 mg/dl (7-17); Estimated Glomerular Filt Rate 96 ml/min (>60); GFR (African American) 116 ML/MIN (>60)
[2024-11-03] MEDS: SODIUM CHLORIDE 0.9% 10ML SYR (RAD ONLY) 10 ML IV (15:10)
[2024-11-03] MEDS: IOPAMIDOL-370 (76%);100ML BOTTLE 75 ML IV (15:10)
[2024-11-03 16:10] VITALS: PULSE 77; PULSE 82
[2024-11-03] MEDS: ALBUTEROL 0.083% 2.5 MG/3 ML NEB IH (16:10)
== END 2024-11-03 23:59 | disposition home or self-care (01) ==
LOC: RAD 14:08
PROVIDERS: PCP Family Medicine; Visit Provider Internal Medicine Pulmonary Disease
DX: Q25.72 Congenital pulmonary arteriovenous malformation (principal); R06.09 Other forms of dyspnea
CPT/HCPCS: 36415; 71260; 82565; 84520; 94010; 94618; 94640; J7613; Q9967

== ENCOUNTER → 2024-11-07 15:38 | Outpatient (CLI) | payer MEDICARE, SELFPAY | LOC: SL 15:39 | PROVIDERS: PCP Family Medicine; Visit Provider Internal Medicine Pulmonary Disease | DX: G47.34 Idiopathic sleep related nonobstructive alveolar hypoventilation (principal) | CPT/HCPCS: 94762 ==

== ENCOUNTER 2024-11-23 13:28 | Outpatient (CLI) | payer MEDICARE, SELFPAY ==
--- NOTE | 2024-11-23 13:31 | XR_ITS ---
FINAL REPORT CLINICAL HISTORY: bilateral low back pain, bilateral hip pain FINDINGS: Three views of the right hip/pelvis demonstrate no acute fracture or dislocation. There are post-ORIF changes of a sub capital right femoral neck fracture. This is chronic/posttraumatic. There is sclerosis of the pubic symphysis compatible with old fracture. There are mild degenerative changes of the bilateral sacroiliac joints. IMPRESSION: Chronic appearing changes. Reviewed, Interpreted and Dictated by Anna Shin MD Transcribed by Jessa Palm Authenticated and [facility]
--- NOTE | 2024-11-23 13:31 | XR_ITS ---
FINAL REPORT CLINICAL HISTORY: bilateral low back pain, bilateral hip pain FINDINGS: Two views of the left hip were obtained. The bones are osteopenic. There is no fracture of the proximal femur. There is abnormal sclerosis of the pubic symphysis attributed to old healed fracture. This was correlated with CT dated March,. IMPRESSION: No acute findings of the hip. Posttraumatic changes of the pubic symphysis Reviewed, Interpreted and Dictated by Anna Shin MD Transcribed by Jessa Palm Authenticated and [facility]
--- NOTE | 2024-11-23 13:31 | XR_ITS ---
FINAL REPORT CLINICAL HISTORY: bilateral low back pain, bilateral hip pain FINDINGS: No fracture is identified. There is severe diffuse degenerative disc disease. There is mild S-shaped scoliosis. There is probable canal stenosis and neuroforaminal narrowing within multiple levels. Alignment is normal. IMPRESSION: Advanced degenerative changes. Reviewed, Interpreted and Dictated by Anna Shin MD Transcribed by Jessa Palm Authenticated and [facility]
== END 2024-11-23 23:59 | disposition home or self-care (01) ==
LOC: RAD 13:29
PROVIDERS: PCP Family Medicine; Visit Provider Nurse Practitioner
DX: M54.50 Low back pain, unspecified (principal); M25.551 Pain in right hip; M25.552 Pain in left hip; Z87.440 Personal history of urinary (tract) infections
CPT/HCPCS: 72100; 73502; 87086

== ENCOUNTER 2024-12-08 10:42 | Outpatient (POV) | payer MEDICARE, SELFPAY ==
--- NOTE | 2024-12-08 10:53 | A.OFFVIS_ITS ---
HPI Data of Consult Patient: new to practice Consult date: 12/08/24 Requesting Physician: Clarisa Galvez APRN Primary Care Provider: Hemant Dominguez MD Consult Narrative History of present illness: Ms. Bran is a 83 year old female who presents today as a new patient. She is a referral from Dr. Dominguez. Today she rates her pain an 8 out of 10. Patient states that her pain is all along her low back along the right side and goes into her right groin. Patient describes it as an aching, throbbing sensation with some numbness and pressure. Patient states that it is interfering with her ability perform activities of daily living such as cooking and cleaning. Patient states that she did not have any injuries when this initially started and that it has been really severe over the last month. Patient states she has tried oral medications including muscle relaxers, oral steroids with no changes as well as ibuprofen. Patient has also tried heat and ice and topical patches and other interventions with no changes. Patient has been to the chiropractor with no additional improvement. Patient denies any prior injection or surgical history. Patient denies any radiating symptoms into her legs or on the left side. Patient is interested in any help we may be able to provide as the pain is constant. She states that a lot of times it is worse with increased activity or prolonged positioning such as sitting or standing. She does states she has to change positions multiple times due to the worsening pain and even going to the restroom is difficult to go from a seated to standing position.Patient does have significant cardiac related history.She is currently managed with lorazepam from her primary care. Her Gavin has been reviewed and is appropriate. CC: Clarisa Galvez APRN [facility] Disclaimer: The information contained in this section may have been updated after the patient was seen, as this information can be updated by other users. 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 Evidence of bihemispheric strokes in the past including posterior circulation CVA, (clinically silent). Hypokalemia Cellulitis of right pinna Bladder prolapse, female, acquired Dysuria IFG (impaired fasting glucose) Memory changes Recurrent UTI Allergic rhinitis Insomnia Anxiety Osteoporosis GERD (gastroesophageal reflux disease) Essential hypertension Hyperlipidemia Broken hip Surgical History History of loop recorder History of cardiac cath History of repair of left hip joint History of hysterectomy Family History Son Cancer Social History Smoking Status: Former smoker alcohol intake: never substance use type: denies use current occupational status: retired Travel in the last 8 weeks: None household members: spouse housing: house lives independently: Yes marital status: number of children: 4 number of grandchildren: 6 Review of Systems Review of Systems Review of systems:: pertinent systems reviewed and negative unless documented below Review of systems (narrative): Review of Systems: General: No recent weight changes, no fever, no sleep disturbances Respiratory: No cough, no shortness of air, no recurring pulmonary infections Cardiovascular/peripheral vascular: No chest pain, no palpitations, no edema, no shortness of breath Gastrointestinal: No new onset incontinence, normal bowel movements reported Genitourinary: No new onset incontinence Musculoskeletal: Low back pain, right hip pain, right groin pain Psychiatric: [Normal mood/affect] Neurological: [Denies weakness in extremities], [denies balance issues] Meds Home Medications and Allergies Home Medications ?Medication ?Instructions ?Recorded ?Confirmed ?Type aspirin 81 mg tablet,delayed 81 mg PO DAILY 30 days #30 tabs 01/01/24 11/30/24 Rx release atorvastatin 40 mg tablet 40 mg PO HS 30 days #90 tabs 01/27/24 11/30/24 Rx losartan 50 mg-hydrochlorothiazide 1 tab PO DAILY #90 tabs 02/15/24 11/30/24 Rx 12.5 mg tablet estradiol 0.01% (0.1 mg/gram) See Rx Instructions vaginal 05/09/24 11/30/24 Rx vaginal cream .COMPLEX #42.5 grams gxwvfnqa-buvn-xywv 8 mg-folic 400 1 tab PO DAILY 06/20/24 11/30/24 History mcg-K 50 mcg-lutein 300 mcg tablet (Centrum Silver Women) alendronate 70 mg tablet 70 mg PO WEEKLY #14 tabs 08/03/24 11/30/24 Rx metoprolol succinate 25 mg 25 mg PO DAILY #90 tabs 09/14/24 11/30/24 Rx tablet,extended release 24 hr (Toprol XL) lorazepam 0.5 mg tablet See Rx Instructions .Route 09/15/24 11/30/24 Rx .COMPLEX PRN anxiety #90 tabs clopidogrel 75 mg tablet (Plavix) 75 mg PO DAILY #30 tabs 10/13/24 11/30/24 Rx memantine 5 mg tablet 5 mg PO BID #60 tabs 10/28/24 11/30/24 Rx dexamethasone 4 mg tablet 4 mg PO BID #10 tabs 11/23/24 11/30/24 Rx tizanidine 2 mg tablet 2 mg PO TID PRN muscle spasticity 11/23/24 11/30/24 Rx #30 tabs lidocaine 5 % topical patch 1 patch topical DAILY #30 ea 11/30/24 11/30/24 Rx New Prescriptions to Start Prescriptions: Allergies Allergy/AdvReac Type Severity Reaction Status Date / Time acetaminophen (From Allergy Mild Rash Verified 11/30/24 13:42 Tylenol-Codeine #3) ciprofloxacin (From Cipro) Allergy Mild Rash Verified 11/30/24 13:42 codeine (From Allergy Mild Rash Verified 11/30/24 13:42 Tylenol-Codeine #3) cyclobenzaprine (From Allergy Mild Rash Verified 11/30/24 13:42 Flexeril) doxycycline Allergy Mild Rash Verified 11/30/24 13:42 erythromycin base Allergy Mild Rash Verified 11/30/24 13:42 hydrocodone Allergy Mild Rash Verified 11/30/24 13:42 loratadine (From Claritin) Allergy Mild Rash Verified 11/30/24 13:42 oxycodone (From Roxicet) Allergy Mild Rash Verified 11/30/24 13:42 Objective Narrative: Physical Exam: General: Alert and oriented x3, no acute distress, pleasant and cooperative Lungs: Respirations even and unlabored, symmetrical chest expansion Eyes: PERRL Musculoskeletal: Flexion and extension of lumbar [spine] somewhat guarded secondary to pain, [antalgic gait noted] point tenderness along right SI with positive right Kendra's, Layla's, Gaenslen's, compression and distraction exam Neurological: Speech clear, no gross sensory deficit Additional findings Additional findings: FINDINGS: No fracture is identified. There is severe diffuse degenerative disc disease. There is mild S-shaped scoliosis. There is probable canal stenosis and neuroforaminal narrowing within multiple levels. Alignment is normal. IMPRESSION: Advanced degenerative changes. Reviewed, Interpreted and Dictated by Anna Shin MD Transcribed by Jessa Palm Authenticated and [facility] Assessment and Plan *Assessment and plan (1) Sacroiliitis: Status: Acute Category: Medical Code(s): M46.1 - Sacroiliitis, not elsewhere classified (2) Right hip pain: Status: Acute Category: Medical Code(s): M25.551 - Pain in right hip (3) Low back pain: Status: Acute Category: Medical Code(s): M54.50 - Low back pain, unspecified Plan Patient is experiencing worsening pain along the low back and right hip. They did have limited range of motion of the lumbar spine along with point tenderness along right SI joint and a positive right Kendra's, Layla's, Gaenslen's, compression and distraction exam. I did discuss with the patient that I do believe they would benefit from right SI injection. Risk and benefits were discussed with the patient and they would like to proceed forward with this option. Patient has tried and failed conservative therapy including continued at home stretching exercise for longer than 12 weeks that was physician guided from the chiropractor. Patient will be submitted for a diagnostic right SI injection with less than 1 mL solution to be injected. I will also order the patient a compounded cream.Patient will be scheduled for right SI injection under fluoroscopy. Patient has been instructed to contact the clinic with any concerns before the next appointment. Dr. Marti has reviewed this note and agrees with this plan of care. This note was dictated using voice recognition software and make contain errors or omissions. All injections are used with Lidocaine or Bupivacaine and Depo Medrol. Patient has been instructed to contact the clinic with any concerns before the next appointment. Dr. Marti has reviewed this note and agrees with this plan of care. This note was dictated using voice recognition software and make contain errors or omissions. All injections are used with Lidocaine, Bupivacaine and Depo Medrol. Occasionally urine drug screen is needed to verify patient's compliance with our office pain contract. This is ordered based off specific treatments related to chronic pain with the potential to abuse certain medications.
[2024-12-08 11:01] VITALS: BP 140/85; PULSE 79; RESP 18; O2SAT 99; BMI 18.1
== END 2024-12-08 23:59 | disposition home or self-care (01) ==
PROVIDERS: PCP Family Medicine; Visit Provider Nurse Practitioner Family
DX: M46.1 Sacroiliitis, not elsewhere classified (principal); M25.551 Pain in right hip; M54.50 Low back pain, unspecified; Z73.89 Other problems related to life management difficulty
CPT/HCPCS: 99202; G0463

== ENCOUNTER 2025-01-03 10:20 | Day surgery (SDC) | payer MEDICARE, SELFPAY ==
[2025-01-03 10:25] VITALS: BP 136/94; PULSE 75; RESP 18; O2SAT 100; BMI 18.3
[2025-01-03 10:42] VITALS: BP 140/77; PULSE 78; RESP 17; O2SAT 96
[2025-01-03] MEDS: BUPIVACAINE 0.25% 10ML INJ 25 MG IJ (10:46)
[2025-01-03 10:47] VITALS: BP 136/94; PULSE 75; RESP 18; O2SAT 100
[2025-01-03] MEDS: LIDOCAINE 1% 5ML PF VIAL 5 ML (10:47)
[2025-01-03] MEDS: methylPREDNISolone ACETATE 80MG/ML VIAL 80 MG (10:47)
[2025-01-03 10:53] VITALS: BP 136/94; PULSE 75; RESP 18; O2SAT 100
--- NOTE | 2025-01-03 12:39 | EXP.PAIN.PRO ---
Procedure Date: 01/03/25 Time: 11:10 Anesthesiologist:: Ernesto Abreu CRNA Complications:: None Pre-procedure Diagnosis:: Right sacroiliitis Post-procedure Diagnosis:: Same. Indications for Procedure:: Patient is very pleasant 84-year-old female who comes our clinic today with right posterior hip pain. Low lumbar back pain off the midline to the right. Patient has extreme point tenderness over the right sacroiliac joint. She reports difficulty with transitioning from sitting to standing. Difficulty with ambulation. She rates her pain 8/10. Procedure Details:: Procedure: Right sacroliliac joint injection under fluoroscopy Informed consent was obtained and the risk and benefits of the procedure were explained to the patient.~ The patient was taken to the procedure room and noninvasive monitors were placed including noninvasive blood pressure cuff and pulse oximeter.~ The patient was placed prone on the procedure table.~ The~ right hip was cleansed using Betadine as a cleansing solution.~ C-arm fluorosocpy was used to view the right SI joint.~ The skin and subcutaneous tissues were anesthetized using Lidocaine 1.5% and a 25-gauge needle.~ After this, a 22-gauge spinal needle was inserted under fluoroscopic guidance into the inferior aspect of the right SI joint.~ Omnipaque dye was injected and a good spread was seen throughout the joint.~ After this, approximately 5 mL of bupivacaine 0.25% and Depo-Medrol 40 mg was incrementally injected into the sacroiliac joint.~ The patient tolerated the procedure well with no complications.~ The patient was observed in the Pain Clinic, then discharged home neurologically intact.~ Plan and Disposition:: Patient was discharged without incident.
== END 2025-01-03 10:42 | disposition home or self-care (01) ==
LOC: SC.PAINP 10:22
PROVIDERS: PCP Family Medicine; Visit Provider Nurse Anesthetist, Certified Registered
DX: M46.1 Sacroiliitis, not elsewhere classified (principal)
CPT/HCPCS: 27096; G0260; J1010

== ENCOUNTER 2025-01-03 10:54 | Emergency (ER) | payer MEDICARE, SELFPAY ==
[2025-01-03 11:00] VITALS: BP 144/80; PULSE 75; RESP 18; TEMP 36.6; O2SAT 98; BMI 18.7
--- NOTE | 2025-01-03 11:03 | PC.NURSE ---
PT PLACED IN A GOWN AND WARM BLANKET PROVIDED
--- NOTE | 2025-01-03 11:09 | ED_ITS ---
<Statement entered by Clarisa Rivas DO - 01/03/25 13:01> I was consulted by the FREDRICK, and we discussed the complexity of the problems being addressed. I approved the treatment and management plan for this patient's care in the emergency department, thus performing a substantive portion of the medical decision making. Clarisa Rivas DO Discharge Plan Disposition Patient Disposition: Home, Self-Care Prescriptions Prescriptions: New polyethylene glycol 3350 [Miralax] 17 gram/dose powder 17 g PO BID Qty: 1020 0RF No Action atorvastatin 40 mg tablet 40 mg PO HS 30 Days Qty: 90 3RF alendronate 70 mg tablet 70 mg PO WEEKLY Qty: 14 10RF lorazepam 0.5 mg tablet See Rx Instructions .ROUTE .COMPLEX PRN (Reason: anxiety) Qty: 90 2RF Rx Instructions: tid prn anxiety cefdinir 300 mg capsule 300 mg PO BID 10 Days Qty: 20 0RF benzonatate 200 mg capsule 200 mg PO TID PRN (Reason: cough) Qty: 60 1RF estradiol 0.01 % (0.1 mg/gram) cream See Rx Instructions vaginal .COMPLEX Qty: 42.5 2RF Rx Instructions: Using finger technique daily for two weeks and then twice weekly vaginally; Centrum Silver Women 8 mg iron-400 mcg-50 mcg tablet 1 tab PO DAILY clopidogrel [Plavix] 75 mg tablet 75 mg PO DAILY Qty: 30 11RF metoprolol succinate [Toprol XL] 25 mg tablet extended release 24 hr 25 mg PO DAILY Qty: 90 3RF memantine 5 mg tablet 5 mg PO BID Qty: 60 5RF dexamethasone 4 mg tablet 4 mg PO BID Qty: 10 0RF tizanidine 2 mg tablet 2 mg PO TID PRN (Reason: muscle spasticity) Qty: 30 0RF lidocaine 5 % adhesive patch,medicated 1 patch topical DAILY Qty: 30 12RF Rx Instructions: leave on most painful area for up to 12 hrs losartan-hydrochlorothiazide 50-12.5 mg tablet 1 tab PO DAILY Qty: 90 3RF aspirin 81 mg Tablet,Delayed Release (Dr/Ec) 81 mg PO DAILY 30 Days Qty: 30 0RF Referrals Follow up/Referrals: Hemant Dominguez MD [Primary Care Provider] - See instructions Activity Restrictions/Add. Instructions Additional Instructions/Restrictions: Today your evaluated in the emergency department and found to have hemorrhoids. Please use the MiraLAX as we discussed. Please increase your fluid intake. It is important that you call your PCP and have a colonoscopy scheduled for further evaluation. Please return to the ED for any worsening of your condition. Clinical Impressions Clinical Impression: Hemorrhoids Qualifiers: Hemorrhoid type: first degree Qualified Code(s): K64.0 - First degree hemorrhoids Instructions Patient Instructions: Hemorrhoids Print Language Print Language: Slovak Discharge ED Provider: Clarisa Rivas General Adult HPI General Chief complaint: GI Bleed Stated complaint: blood w/bowel movment on blood thiners Time Seen by Provider: 01/03/25 10:58 Mode of Arrival: Ambulatory Source of Information: Patient Description of Symptoms (Recalled from ER Triage Doc. by RN): PT REPORTS BRIGHT RED BLOOD NOTED IN AM STOOL FOR ABOUT 3 DAYS. DENIES PAIN. DENIES BLOOD IN STOOL AFTER AM BM History of Present Illness HPI narrative: patient is an 84-year-old female with PMHx CAD (x 1 stent), chronic back pain (follows pain management), history of abnormal EKG, MCI, CVA, GERD, hyperlipidemia, HTN who presents to the ED for complaints of painless blood/streaking in bowel movement x 2 - 3 days. Related Data Home Medications ?Medication ?Instructions ?Recorded ?Confirmed [id number] 8 mg-folic 400 1 tab PO DAILY 06/20/24 01/03/25 mcg-K 50 mcg-lutein 300 mcg tablet (Centrum Silver Women) Previous Rx's ?Medication ?Instructions ?Recorded aspirin 81 mg tablet,delayed 81 mg PO DAILY 30 days #30 tabs 01/01/24 release atorvastatin 40 mg tablet 40 mg PO HS 30 days #90 tabs 01/27/24 losartan 50 mg-hydrochlorothiazide 1 tab PO DAILY #90 tabs 02/15/24 12.5 mg tablet estradiol 0.01% (0.1 mg/gram) See Rx Instructions vaginal 05/09/24 vaginal cream .COMPLEX #42.5 grams alendronate 70 mg tablet 70 mg PO WEEKLY #14 tabs 08/03/24 metoprolol succinate 25 mg 25 mg PO DAILY #90 tabs 09/14/24 tablet,extended release 24 hr (Toprol XL) lorazepam 0.5 mg tablet See Rx Instructions .Route 09/15/24 .COMPLEX PRN anxiety #90 tabs clopidogrel 75 mg tablet (Plavix) 75 mg PO DAILY #30 tabs 10/13/24 memantine 5 mg tablet 5 mg PO BID #60 tabs 10/28/24 dexamethasone 4 mg tablet 4 mg PO BID #10 tabs 11/23/24 tizanidine 2 mg tablet 2 mg PO TID PRN muscle spasticity 11/23/24 #30 tabs lidocaine 5 % topical patch 1 patch topical DAILY #30 ea 11/30/24 benzonatate 200 mg capsule 200 mg PO TID PRN cough #60 caps 12/30/24 cefdinir 300 mg capsule 300 mg PO BID 10 days #20 caps 12/30/24 polyethylene glycol 3350 17 17 g PO BID #1,020 grams 01/03/25 gram/dose oral powder (Miralax) Allergies Allergy/AdvReac Type Severity Reaction Status Date / Time acetaminophen (From Allergy Mild Rash Verified 01/03/25 10:32 Tylenol-Codeine #3) ciprofloxacin (From Cipro) Allergy Mild Rash Verified 01/03/25 10:32 codeine (From Allergy Mild Rash Verified 01/03/25 10:32 Tylenol-Codeine #3) cyclobenzaprine (From Allergy Mild Rash Verified 01/03/25 10:32 Flexeril) doxycycline Allergy Mild Rash Verified 01/03/25 10:32 erythromycin base Allergy Mild Rash Verified 01/03/25 10:32 hydrocodone Allergy Mild Rash Verified 01/03/25 10:32 loratadine (From Claritin) Allergy Mild Rash Verified 01/03/25 10:32 oxycodone (From Roxicet) Allergy Mild Rash Verified 01/03/25 10:32 PFSH PFS Disclaimer: The information contained in this section may have been updated after the patient was seen, as this information can be updated by other users. 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 Evidence of bihemispheric strokes in the past including posterior circulation CVA, (clinically silent). Hypokalemia Cellulitis of right pinna Bladder prolapse, female, acquired Dysuria IFG (impaired fasting glucose) Memory changes Recurrent UTI Allergic rhinitis Insomnia Anxiety Osteoporosis GERD (gastroesophageal reflux disease) Essential hypertension Hyperlipidemia Broken hip Surgical History History of loop recorder History of cardiac cath History of repair of left hip joint History of hysterectomy Family History Son Cancer Social History Smoking Status: Former smoker alcohol intake: never substance use type: denies use current occupational status: retired Travel in the last 8 weeks: None household members: spouse housing: house lives independently: Yes marital status: number of children: 4 number of grandchildren: 6 Have you lived/traveled outside [place] in past 30 days?: No Contact w/someone who lives/traveled outside [place] past 30 days?: No Exposure to someone with infectious disease in past 14 days?: No Do you have a fever (greater than 100.4 F or 38 C)?: No Have you tested positive for COVID-19: No Exposed to someone with COVID-19 in past 14 days?: No Do you have a sore throat?: No Do you have a cough?: No Do you have any weakness?: No Do you have any diarrhea?: No Are you experiencing any unusual bleeding?: Yes Do you have any muscle aches/pain?: No Do you have any abdominal pain?: No Are you experiencing loss of taste or smell?: No Other Medical History Have you received the Flu Vaccine for this season: No Have you received the Pneumonia Vaccine: No ROS Obtained: Yes Systems reviewed as appropriate & no additional complaints except as documented Physical Exam General General appearance: alert and in no apparent distress Head Head exam: atraumatic and normocephalic Eye Eye exam: Present normal appearance and PERRL ENT ENT exam: Present normal exam Neck Neck exam: Present normal inspection Chest Chest inspection: Present normal inspection and symmetric chest wall rise; Absent tenderness Respiratory Respiratory exam: Present normal lung sounds bilaterally Cardiovascular Cardiovascular exam: Present regular rate Abdominal Exam Abdominal exam: Present soft and normal bowel sounds; Absent tenderness Expanded Exam Comment: 3 external hemorrhoids Extremities Exam Extremities exam: Present normal inspection and full ROM Back Exam Back exam: Present normal inspection and full ROM Neurological Exam Neurological exam: Present alert and oriented X3 Psychiatric Psychiatric exam: Present normal affect and normal mood Skin Skin exam: Present warm and dry Medical Decision Making Medical Records Screening: Per USPSTF and CDC recommendations, given the prevalence of disease in our region, it is our hospital?s policy to screen for HIV and viral Hepatitis for all patients aged 18 and over and those with ongoing risk factors. Gavin Inquiry Pt receiving controlled substance: No Vital Signs: 01/03/25 11:00 01/03/25 11:25 Temperature 97.9 F 98.2 F Temperature Source Oral Oral Pulse Rate 80 Pulse Rate [Radial] 75 Respiratory Rate 18 18 Blood Pressure 144/80 H Blood Pressure [Left Arm] 144/80 H Blood Pressure Mean [Left Arm] 101 Blood Pressure Source Automatic Cuff Blood Pressure Source [Left Arm] Automatic Cuff Blood Pressure Position Sitting Blood Pressure Position [Left Arm] Sitting 02 Sat by Pulse Oximetry 98 Oxygen Delivery Method Room Air Room Air Orders (Tests/Meds): ORDERS Category Date Time Status HIV Combo Stat Lab 01/03/25 11:07 Ordered Hepatitis C Ab Qual. W/ RFX Stat Lab 01/03/25 11:07 Ordered Medical Decision Narrative: In summary, patient is an 84-year-old female with PMHx CAD (x 1 stent), chronic back pain (follows pain management), history of abnormal EKG, MCI, CVA, GERD, hyperlipidemia, HTN who presents to the ED for complaints of painless blood/streaking in bowel movement x 2 - 3 days. Patient states each morning when she has her normal bowel movements she sees bright red blood. Patient states that she does not have pain with a bowel movement, denies constipation, denies abdominal pain, nausea or vomiting. Denies fever, headache, visual changes, dizziness, decreased coordination, falls, loss of consciousness, weakness. She adds that this only occurs with her morning bowel movement and then no additional occurrences throughout the day with bowel movements. Patient adds that she takes aspirin and Plavix. Denies fever, headache, visual disturbances, chest pain, shortness of breath, abdominal pain, nausea, vomiting, dysuria Upon initial evaluation patient is alert, oriented and cooperative. She is hemodynamically stable. 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 No active bleeding noted. No thrombosed hemorrhoids. No dried blood. I discussed with patient that I feel these are most likely what is causing her morning blood streaking in her bowel movement however advised her she will need to call her PCP office and schedule colonoscopy. Patient verbalized understanding. I offered lab work to which patient declined as she is not symptomatic. Given this, I feel the patient is safe to be discharged home. I advised her I will send a prescription for MiraLAX to the pharmacy and we discussed use. Discussed to increase her fluid intake. We discussed return precautions to the ED. She verbalized understanding of all discharge instructions and was hemodynamically stable and ambulatory from the ED. Critical Care Critical Care Time Critical Care Time: No
[2025-01-03 11:25] VITALS: BP 144/80; PULSE 80; RESP 18; TEMP 36.8; O2SAT 100
== END 2025-01-03 11:27 | disposition home or self-care (01) ==
PROVIDERS: Emergency Provider Emergency Medicine; PCP Family Medicine
DX: K64.0 First degree hemorrhoids (principal); K92.1 Melena; K21.9 Gastro-esophageal reflux disease without esophagitis; M81.0 Age-related osteoporosis without current pathological fracture; E78.5 Hyperlipidemia, unspecified; I10 Essential (primary) hypertension; G31.84 Mild cognitive impairment of uncertain or unknown etiology; I25.10 Atherosclerotic heart disease of native coronary artery without angina pectoris; M54.50 Low back pain, unspecified; Z79.01 Long term (current) use of anticoagulants
CPT/HCPCS: 99283

== ENCOUNTER 2025-01-17 13:42 | Outpatient (POV) | payer MEDICARE, SELFPAY ==
--- NOTE | 2025-01-17 13:56 | A.OFFVIS_ITS ---
[facility] Disclaimer: The information contained in this section may have been updated after the patient was seen, as this information can be updated by other users. 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 Evidence of bihemispheric strokes in the past including posterior circulation CVA, (clinically silent). Hypokalemia Cellulitis of right pinna Bladder prolapse, female, acquired Dysuria IFG (impaired fasting glucose) Memory changes Recurrent UTI Allergic rhinitis Insomnia Anxiety Osteoporosis GERD (gastroesophageal reflux disease) Essential hypertension Hyperlipidemia Broken hip Surgical History History of loop recorder History of cardiac cath History of repair of left hip joint History of hysterectomy Family History Son Cancer Social History Smoking Status: Former smoker alcohol intake: never substance use type: denies use current occupational status: retired Travel in the last 8 weeks: None household members: spouse housing: house lives independently: Yes marital status: number of children: 4 number of grandchildren: 6 PM Subjective & Objective Subjective Subjective:: Patient is a pleasant 84-year-old female who presents today for follow-up of right SI injection on 01/03/2025. Today she rates her pain a 0 out of 10 on the right side and states she had 100% improvement following this injection. Patient states she was able to do more with overall decreased pain on the right side however today she does state that she has been noticing much worse pain now on the left side. Patient states that it is worse with prolonged positioning or activity. She states it is a 5 or 6 out of 10 when it starts to get worse. Patient is interested in repeating additional injections as this is interfering with her ability perform activities of daily living such as cooking and cleaning. Patient does state that she did get her compounded cream however did not notice significant relief. Her Gavin has been reviewed and is appropriate. Review of Systems: General: No recent weight changes, no fever, no sleep disturbances Respiratory: No cough, no shortness of air, no recurring pulmonary infections Cardiovascular/peripheral vascular: No chest pain, no palpitations, no edema, no shortness of breath Gastrointestinal: No new onset incontinence, normal bowel movements reported Genitourinary: No new onset incontinence Musculoskeletal: Left hip pain Psychiatric: [Normal mood/affect] Neurological: [Denies weakness in extremities], [denies balance issues] Pain at rest (0-10 scale): 5 Objective Objective:: Physical Exam: General: Alert and oriented x3, no acute distress, pleasant and cooperative Lungs: Respirations even and unlabored, symmetrical chest expansion Eyes: PERRL Musculoskeletal: Flexion and extension of lumbar [spine] somewhat guarded secondary to pain, [antalgic gait noted] point tenderness along left SI with positive left Kendra's, Layla's, Gaenslen's, compression and distraction exam Neurological: Speech clear, no gross sensory deficit Has patient had previous pain injection?: Yes Percent improvement in pain since last injection: 100% Conservative treatment options previously tried: Home exercise plan Length of treatment: Longer than 12 weeks Meds Home Medications and Allergies Home Medications ?Medication ?Instructions ?Recorded ?Confirmed ?Type aspirin 81 mg tablet,delayed 81 mg PO DAILY 30 days #30 tabs 01/01/24 01/03/25 Rx release atorvastatin 40 mg tablet 40 mg PO HS 30 days #90 tabs 01/27/24 01/03/25 Rx losartan 50 mg-hydrochlorothiazide 1 tab PO DAILY #90 tabs 02/15/24 01/03/25 Rx 12.5 mg tablet estradiol 0.01% (0.1 mg/gram) See Rx Instructions vaginal 05/09/24 01/03/25 Rx vaginal cream .COMPLEX #42.5 grams [id number] 8 mg-folic 400 1 tab PO DAILY 06/20/24 01/03/25 History mcg-K 50 mcg-lutein 300 mcg tablet (Centrum Silver Women) alendronate 70 mg tablet 70 mg PO WEEKLY #14 tabs 08/03/24 01/03/25 Rx metoprolol succinate 25 mg 25 mg PO DAILY #90 tabs 09/14/24 01/03/25 Rx tablet,extended release 24 hr (Toprol XL) lorazepam 0.5 mg tablet See Rx Instructions .Route 09/15/24 01/03/25 Rx .COMPLEX PRN anxiety #90 tabs clopidogrel 75 mg tablet (Plavix) 75 mg PO DAILY #30 tabs 10/13/24 01/03/25 Rx memantine 5 mg tablet 5 mg PO BID #60 tabs 10/28/24 01/03/25 Rx dexamethasone 4 mg tablet 4 mg PO BID #10 tabs 11/23/24 01/03/25 Rx tizanidine 2 mg tablet 2 mg PO TID PRN muscle spasticity 11/23/24 01/03/25 Rx #30 tabs lidocaine 5 % topical patch 1 patch topical DAILY #30 ea 11/30/24 01/03/25 Rx benzonatate 200 mg capsule 200 mg PO TID PRN cough #60 caps 12/30/24 01/03/25 Rx cefdinir 300 mg capsule 300 mg PO BID 10 days #20 caps 12/30/24 01/03/25 Rx polyethylene glycol 3350 17 17 g PO BID #1,020 grams 01/03/25 Rx gram/dose oral powder (Miralax) New Prescriptions to Start Prescriptions: Allergies Allergy/AdvReac Type Severity Reaction Status Date / Time acetaminophen (From Allergy Mild Rash Verified 01/03/25 10:32 Tylenol-Codeine #3) ciprofloxacin (From Cipro) Allergy Mild Rash Verified 01/03/25 10:32 codeine (From Allergy Mild Rash Verified 01/03/25 10:32 Tylenol-Codeine #3) cyclobenzaprine (From Allergy Mild Rash Verified 01/03/25 10:32 Flexeril) doxycycline Allergy Mild Rash Verified 01/03/25 10:32 erythromycin base Allergy Mild Rash Verified 01/03/25 10:32 hydrocodone Allergy Mild Rash Verified 01/03/25 10:32 loratadine (From Claritin) Allergy Mild Rash Verified 01/03/25 10:32 oxycodone (From Roxicet) Allergy Mild Rash Verified 01/03/25 10:32 Assessment and Plan *Assessment and plan (1) Sacroiliitis: Status: Acute Category: Medical Code(s): M46.1 - Sacroiliitis, not elsewhere classified Plan Patient has had 100% relief along the right SI joint following her injection. Patient unfortunately however is dealing with more pain that is now more noticea ble along the left hip. Patient did have limited range of motion of her lumbar spine with point tenderness along her left SI and a positive left Kendra's, Layla's, Gaenslen's, compression and distraction exam. I did discuss with the patient the risk and benefits of left SI injection. She would like to proceed forward with this plan of care. Patient has tried and failed conservative therapy including oral medication, heat and ice, topicals, chiropractor therapy and continued at home stretching exercise that was physician guided for longer than 12 weeks. Patient had significant relief along the right side with this prior intervention of the SI injection. We will plan on doing a diagnostic left SI injection with less than 1 mL of solution to be injected. If she does get significant relief along the left side that we will plan on possibly repeating these diagnostic injections with the possibility of future SI fusion in the future. Patient agrees with this plan of care. Patient will be scheduled for a left SI injection under fluoroscopy. Patient has been instructed to contact the clinic with any concerns before the next appointment. Dr. Marti has reviewed this note and agrees with this plan of care. This note was dictated using voice recognition software and make contain errors or omissions. All injections are used with Lidocaine, Bupivacaine and dexamethasone. Occasionally urine drug screen is needed to verify patient's compliance with our office pain contract. This is ordered based off specific treatments related to chronic pain with the potential to abuse certain medications.
[2025-01-17 14:29] VITALS: BP 135/72; PULSE 79; RESP 16; O2SAT 97; BMI 16.8
== END 2025-01-17 23:59 | disposition home or self-care (01) ==
LOC: SC.PAIN 13:44
PROVIDERS: PCP Family Medicine; Visit Provider Nurse Practitioner Family
DX: M46.1 Sacroiliitis, not elsewhere classified (principal); Z87.891 Personal history of nicotine dependence; Z73.89 Other problems related to life management difficulty; Z79.02 Long term (current) use of antithrombotics/antiplatelets
CPT/HCPCS: 99212; G0463

== ENCOUNTER 2025-02-14 10:44 | Day surgery (SDC) | payer MEDICARE, SELFPAY ==
[2025-02-14 10:55] VITALS: BP 170/77; PULSE 65; RESP 16; TEMP 36.8; O2SAT 98; BMI 20.1
[2025-02-14 10:58] VITALS: BP 170/77; PULSE 83; RESP 18; O2SAT 100
[2025-02-14] MEDS: LIDOCAINE 1% 5ML PF VIAL 5 ML (10:58)
[2025-02-14] MEDS: BUPIVACAINE 0.25% 10ML INJ 25 MG IJ (10:58)
[2025-02-14] MEDS: DEXAMETHASONE 10MG/ML 1ML VIAL 10 MG (10:58)
[2025-02-14 11:01] VITALS: BP 170/77; PULSE 83; RESP 18; O2SAT 100
[2025-02-14 11:02] VITALS: BP 175/75; PULSE 78; RESP 16; O2SAT 100
--- NOTE | 2025-02-14 11:03 | EXP.PAIN.PRO ---
Procedure Date: 02/14/25 Time: 10:50 Anesthesiologist:: Ernesto Abreu CRNA Complications:: None Pre-procedure Diagnosis:: Left sacroiliitis Post-procedure Diagnosis:: Same Indications for Procedure:: Patient is a very pleasant 84-year-old female who comes our clinic today for left sacroiliac joint injection cortisone local anesthetic. Patient describes low lumbar back pain off the midline to the left. Left posterior hip pain. Difficulty transitioning from sitting to standing. Difficulty with ambulation due to the left posterior hip pain. She reports having significant improvement in terms of her overall right sacroiliac joint pain with previous injection on the right side. She rates her pain 6/10. Procedure Details:: Procedure: Left sacroiliac injection under fluoroscopy Informed consent was obtained and the risk and benefits of the procedure were explained to the patient.~ The patient was taken to the procedure room and noninvasive monitors were placed including noninvasive blood pressure cuff and pulse oximeter.~ The patient was placed prone on the procedure table.~ The~ left hip was cleansed using Betadine as a cleansing solution.~ C-arm fluorosocpy was used to view the left SI joint.~ The skin and subcutaneous tissues were anesthetized using Lidocaine 1.5% and a 25-gauge needle.~ After this, a 22-gauge spinal needle was inserted under fluoroscopic guidance into the inferior aspect of the left SI joint.~ Omnipaque dye was injected and a good spread was seen throughout the joint.~ After this, approximately 5 mL of bupivacaine 0.25% and Depo-Medrol 40 mg was incrementally injected into the sacroiliac joint.~ The patient tolerated the procedure well with no complications.~ The patient was observed in the Pain Clinic for a period of 30-45 minutes, then discharged home neurologically intact.~ Plan and Disposition:: Patient was discharged without incident.
== END 2025-02-14 11:02 | disposition home or self-care (01) ==
PROVIDERS: PCP Family Medicine; Visit Provider Nurse Anesthetist, Certified Registered
DX: M46.1 Sacroiliitis, not elsewhere classified (principal)
CPT/HCPCS: G0260; J1100

== ENCOUNTER 2025-02-17 15:46 | Emergency (ER) | payer MEDICARE, SELFPAY ==
[2025-02-17 15:52] VITALS: BP 184/85; PULSE 86; RESP 18; TEMP 36.4; O2SAT 99; BMI 17.4
--- NOTE | 2025-02-17 16:14 | ECG_ITS ---
APPROVED REPORT Exam: Resting ECG HR:79 bpm ECG Measurements Heart Rate 79 AXES TN 159 P 25 QRSd 90 QRS 2 QT 360 T 52 QTc 395 Conclusion SINUS RHYTHM Electronically signed by : ISHAAN MARSHALL, 02/17/2025 18:23:41
--- NOTE | 2025-02-17 16:43 | XR_ITS ---
PROCEDURE INFORMATION: Exam: XR Chest Exam date and time: 02/17/2025 4:51 PM Age: 84 years old Clinical indication: Other: Near syncope TECHNIQUE: Imaging protocol: Radiologic exam of the chest. Views: 1 view. COMPARISON: 1. CT CHEST W CON 11/03/2024 2:56 PM 2. CR XR CHEST PORTABLE 06/02/2023 9:29 PM FINDINGS: Lungs: Unremarkable. No consolidation. Calcified nodule left mid to lower lung campos redemonstrated. Interval placement of a loop recorder overlying the heart. Pleural spaces: Unremarkable. No pleural effusion. No pneumothorax. Heart/Mediastinum: Unremarkable. No cardiomegaly. Bones/joints: Unremarkable. IMPRESSION: Stable chest x-ray with no acute disease.
[2025-02-17 16:53] LABS: Basophils % 0.4 % (0.1-2.0); Eosinophils # 0.1 Kmm3 (0.0-0.4); Eosinophils % 0.9 % (0.1-12.0); Hematocrit 38.7 % (37.0-47.0); Hemoglobin 12.1 g/dL (12.2-16.2); Immature Granulocytes # 0.02 10^3uL; Immature Granulocytes % 0.3 %; Lymphocytes # 1.3 K/mm3 (0.7-4.5); Lymphocytes % 17.7 % (10-50); Mean Corpuscular HGB Conc 31.3 g/dL (31.8-35.4); Mean Corpuscular Hemoglobin 27.8 pg (27.0-31.2); Mean Corpuscular Volume 88.8 fl (81-99); Mean Platelet Volume 10.2 fl (7.4-10.4); Monocytes # 0.7 K/mm3 (0.1-1.0); Monocytes % 9.4 % (1.7-9.3); Neutrophils # 5.3 K/mm3 (1.8-7.8); Neutrophils % 71.3 % (37.0-80.0); Nucleated Red Blood Cells # 0 10^3/uL; Nucleated Red Blood Cells % 0 %; Platelet Count 280 K/mm3 (142-424); Red Blood Count 4.36 M/mm3 (4.20-5.40); Red Cell Distribution Width 15.1 % (11.5-17.5); Red Cell Distribution Width-SD 49.2 fL; White Blood Count 7.5 K/mm3 (4.8-10.8)
[2025-02-17 16:57] LABS: Chloride 102 mmol/L (98-107); Sodium 136 mmol/L (136-145)
[2025-02-17 16:58] LABS: Potassium 3.7 mmoL/L (3.5-5.1)
[2025-02-17 17:00] LABS: Alanine Aminotransferase 25 U/L (12-78); Albumin/Globulin Ratio 1.5 (1.1-1.8); Alkaline Phosphatase 46 U/L (38-126); Anion Gap 8.7 mEq/L (5-15); Aspartate Amino Transferase 31 U/L (14-36); Bilirubin,Total 0.3 mg/dl (0.2-1.3); Blood Urea Nitrogen 24 mg/dl (7-17); Carbon Dioxide 29 mmol/L (22.0-30.0); Creatinine Clearance Estimated 29 mL/min (50-200); Estimated Glomerular Filt Rate 69 ml/min (>60); GFR (African American) 83 ML/MIN (>60); Globulin 2.7 g/dL (1.3-3.2); Total Protein,Serum 6.7 g/dl (6.3-8.2)
[2025-02-17 17:01] LABS: Calcium 9.4 mg/dl (8.4-10.2); Glucose 111 mg/dl (74-100); Magnesium 2.1 mg/dl (1.6-2.3)
[2025-02-17 17:14] LABS: Troponin I < 0.01 ng/ml (0.00-0.034)
--- NOTE | 2025-02-17 17:16 | HMH.EDGENADL ---
Discharge Plan Disposition Patient Disposition: Home, Self-Care Chief Complaint: Weakness Prescriptions Prescriptions: No Action atorvastatin 40 mg tablet 40 mg PO HS 30 Days Qty: 90 3RF alendronate 70 mg tablet 70 mg PO WEEKLY Qty: 14 10RF estradiol 0.01 % (0.1 mg/gram) cream See Rx Instructions vaginal .COMPLEX Qty: 42.5 2RF Rx Instructions: Using finger technique daily for two weeks and then twice weekly vaginally; Centrum Silver Women 8 mg iron-400 mcg-50 mcg tablet 1 tab PO DAILY clopidogrel [Plavix] 75 mg tablet 75 mg PO DAILY Qty: 30 11RF metoprolol succinate [Toprol XL] 25 mg tablet extended release 24 hr 25 mg PO DAILY Qty: 90 3RF memantine 10 mg tablet 10 mg PO BID Qty: 180 3RF lorazepam 0.5 mg tablet See Rx Instructions .ROUTE .COMPLEX PRN (Reason: anxiety) Qty: 90 2RF Rx Instructions: tid prn anxiety losartan-hydrochlorothiazide 50-12.5 mg tablet 1 tab PO DAILY Qty: 90 3RF aspirin 81 mg Tablet,Delayed Release (Dr/Ec) 81 mg PO DAILY 30 Days Qty: 30 0RF polyethylene glycol 3350 [Miralax] 17 gram/dose powder 17 g PO BID Qty: 1020 0RF Referrals Follow up/Referrals: Hemant Dominguez MD [Primary Care Provider] - See instructions Activity Restrictions/Add. Instructions Additional Instructions/Restrictions: Follow-up with cardiology regarding this visit to the emergency department. Be sure to log these episodes on your loop recorder when you start to feel weak, lightheaded, etc. Call your family doctor to establish care for this visit to the emergency department and schedule follow-up within 48 hours to ensure improvement. If you have any worsening of your condition or any other concerning signs or symptoms, return to the emergency department or your primary care doctor for further evaluation. Clinical Impressions Clinical Impression: Generalized weakness, Postural dizziness with presyncope Print Language Print Language: [place] Discharge ED Provider: Ned Kelley General Adult HPI General Chief complaint: Weakness Stated complaint: General Weakness Time Seen by Provider: 02/17/25 16:01 Mode of Arrival: Ambulatory Source of Information: Patient and Relative Description of Symptoms (Recalled from ER Triage Doc. by RN): Pt presents for evaluation of episodes where she feels weak all over, pt states this has been going on for a while . Pt states she is also concerned that she has been bruising easier. Pt has bruising to her left elbow where she bumped her elbow on the door a couple days ago. Pt states she is on a blood thinner but is unable to recall which one. History of Present Illness HPI narrative: Please note that above description of symptoms, in this electronic medical record under categorization of recalled from ER triage doctor by RN are reflective of an initial nursing assessment, however, is not reflective of my full history and physical exam that was personally taken and clarified. Consequentially, this preceding description of symptoms, which may include the patient's categorized chief complaint in the EMR, do not reflect my personal clinical impression, and the ultimate description of history of present illness and patient stated complaints should be deferred to this section of the note. Unless stated otherwise or congruent with this section of the note, additional signs, symptoms, or incongruence should be interpreted as inaccurate with my clinical impression. Related Data Home Medications ?Medication ?Instructions ?Recorded ?Confirmed lzazqbop-vjae-alkl 8 mg-folic 400 1 tab PO DAILY 06/20/24 02/14/25 mcg-K 50 mcg-lutein 300 mcg tablet (Centrum Silver Women) Previous Rx's ?Medication ?Instructions ?Recorded aspirin 81 mg tablet,delayed 81 mg PO DAILY 30 days #30 tabs 01/01/24 release atorvastatin 40 mg tablet 40 mg PO HS 30 days #90 tabs 01/27/24 estradiol 0.01% (0.1 mg/gram) See Rx Instructions vaginal 05/09/24 vaginal cream .COMPLEX #42.5 grams alendronate 70 mg tablet 70 mg PO WEEKLY #14 tabs 08/03/24 metoprolol succinate 25 mg 25 mg PO DAILY #90 tabs 09/14/24 tablet,extended release 24 hr (Toprol XL) clopidogrel 75 mg tablet (Plavix) 75 mg PO DAILY #30 tabs 10/13/24 polyethylene glycol 3350 17 17 g PO BID #1,020 grams 01/03/25 gram/dose oral powder (Miralax) lorazepam 0.5 mg tablet See Rx Instructions .Route 02/06/25 .COMPLEX PRN anxiety #90 tabs memantine 10 mg tablet 10 mg PO BID #180 tabs 02/07/25 losartan 50 mg-hydrochlorothiazide 1 tab PO DAILY #90 tabs 02/13/25 12.5 mg tablet Allergies Allergy/AdvReac Type Severity Reaction Status Date / Time acetaminophen (From Allergy Mild Rash Verified 02/08/25 10:13 Tylenol-Codeine #3) ciprofloxacin (From Cipro) Allergy Mild Rash Verified 02/08/25 10:13 codeine (From Allergy Mild Rash Verified 02/08/25 10:13 Tylenol-Codeine #3) cyclobenzaprine (From Allergy Mild Rash Verified 02/08/25 10:13 Flexeril) doxycycline Allergy Mild Rash Verified 02/08/25 10:13 erythromycin base Allergy Mild Rash Verified 02/08/25 10:13 hydrocodone Allergy Mild Rash Verified 02/08/25 10:13 loratadine (From Claritin) Allergy Mild Rash Verified 02/08/25 10:13 oxycodone (From Roxicet) Allergy Mild Rash Verified 02/08/25 10:13 [facility] Disclaimer: The information contained in this section may have been updated after the patient was seen, as this information can be updated by other users. 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 Evidence of bihemispheric strokes in the past including posterior circulation CVA, (clinically silent). Hypokalemia Cellulitis of right pinna Bladder prolapse, female, acquired Dysuria IFG (impaired fasting glucose) Memory changes Recurrent UTI Allergic rhinitis Insomnia Anxiety Osteoporosis GERD (gastroesophageal reflux disease) Essential hypertension Hyperlipidemia Broken hip Surgical History History of loop recorder History of cardiac cath History of repair of left hip joint History of hysterectomy Family History Son Cancer Social History Smoking Status: Never smoker alcohol intake: never substance use type: denies use current occupational status: other Travel in the last 8 weeks?: None household members: spouse housing: house lives independently: Yes marital status: number of children: 4 number of grandchildren: 6 Have you lived/traveled outside [place] in past 30 days?: No Contact w/someone who lives/traveled outside US past 30 days?: No Exposure to someone with infectious disease in past 14 days?: No Do you have a fever (greater than 100.4 F or 38 C)?: No Have you tested positive for COVID-19?: No Exposed to someone with COVID-19 in past 14 days?: No Do you have a sore throat?: No Do you have a cough?: No Do you have any weakness?: No Do you have any diarrhea?: No Are you experiencing any unusual bleeding?: No Do you have any muscle aches/pain?: No Do you have any abdominal pain?: No Are you experiencing loss of taste or smell?: No Other Medical History Have you received the Flu Vaccine for this season: No Have you received the Pneumonia Vaccine: No ROS Obtained: Yes All systems reviewed & no additional complaints except as documented Physical Exam General General appearance: alert Head Head exam: atraumatic and normocephalic Eye Eye exam: Present normal appearance, PERRL and EOMI Neck Neck exam: Present normal inspection, full ROM and trachea midline Respiratory Respiratory exam: Absent respiratory distress, wheezes, stridor, accessory muscle use or prolonged expiratory phase Cardiovascular Cardiovascular exam: Present other (Pulses equal symmetric in upper and lower extremities) Abdominal Exam Abdominal exam: Present soft; Absent distention, tenderness or pulsatile mass Extremities Exam Extremities exam: Absent edema Neurological Exam Neurological exam: Present alert, oriented X3 and CN II-XII intact; Absent motor sensory deficit Skin Skin exam: Present warm and dry; Absent diaphoresis or erythema Medical Decision Making Medical Records Medical records reviewed: Yes I reviewed the patient's medical records. Screening: Per USPSTF and CDC recommendations, given the prevalence of disease in our region, it is our hospital?s policy to screen for HIV and viral Hepatitis for all patients aged 18 and over and those with ongoing risk factors. Gavin Inquiry Pt receiving controlled substance: No Gavin was queried for this patient: No Vital Signs: 02/17/25 15:52 Temperature 97.6 F Temperature Source Temporal Artery Scan Pulse Rate [Right] 86 Respiratory Rate 18 Blood Pressure [Right Arm] 184/85 H Blood Pressure Mean [Right Arm] 118 Blood Pressure Source [Right Arm] Automatic Cuff Blood Pressure Position [Right Arm] Sitting 02 Sat by Pulse Oximetry 99 Oxygen Delivery Method Room Air Lab Data Lab Results 02/17/25 16:14: WBC 7.5, RBC 4.36, Hgb 12.1 L, Hct 38.7, MCV 88.8, MCH 27.8, MCHC 31.3 L, RDW 15.1, Plt Count 280, MPV 10.2, Neut % (Auto) 71.3, Lymph % (Auto) 17.7, Power % (Auto) 9.4 H, Eos % (Auto) 0.9, Baso % (Auto) 0.4, Neut # (Auto) 5.3, Lymph # (Auto) 1.3, Power # (Auto) 0.7, Eos # (Auto) 0.1, Baso # (Auto) 0.0, Sodium 136, Potassium 3.7, Chloride 102, Carbon Dioxide 29, Anion Gap 8.7, BUN 24 H, Creatinine 0.80, Estimated Creat Clear 29, Estimated GFR 69, Est GFR ( Amer) 83, Glucose 111 H, Calcium 9.4, Magnesium 2.1, Total Bilirubin 0.3, AST 31, ALT 25, Alkaline Phosphatase 46, Troponin I < 0.01, Total Protein 6.7, Albumin 4.0, Globulin 2.7, Albumin/Globulin Ratio 1.5 02/17/25 16:14 02/17/25 16:14 Orders (Tests/Meds): ED MEDICATIONS Generic Name Dose Route Start Last Admin Trade Name Freq PRN Reason Stop Dose Admin Sodium Chloride 500 mls @ 500 mls/hr 02/17/25 16:45 02/17/25 17:17 Sod Chloride 0.9% 500ml Bag IV 02/17/25 17:44 500 mls/hr .Q1H ONE Administration ORDERS Category Date Time Status CXR --portable [XR chest portable] Stat Exams 02/17/25 16:43 Taken CBC w/Auto Diff [Complete Blood Count Auto Diff] Stat Lab 02/17/25 16:14 Completed CMP [Comprehensive Metabolic Panel] Stat Lab 02/17/25 16:14 Completed MAG [Magnesium] Stat Lab 02/17/25 16:14 Completed Trop I [Troponin I] Stat Lab 02/17/25 16:14 Completed Troponin I Q3H Lab 02/17/25 19:45 Ordered Troponin I Q3H Lab 02/17/25 22:45 Ordered HEART Score History (anamnesis): Slightly suspicious ECG: Normal Age: >65 years Risk factors: 3 or more risk factors Troponin: </= normal limit HEART Score: 4 Medical Decision Narrative: 84-year-old female history of hypertension, hyperlipidemia, CAD, stenting presenting with generalized weakness. She states that she has episodes of generalized weakness, but nothing in particular makes them better or worse. They are not daily, but most days of the week. States that she usually wakes up feeling weak, gets better throughout the day if she eats, drinks, goes about her day. She states that she does feel worse when she does not eat or drink much after having 1 of these episodes start. No fevers or chills, nausea or vomiting, chest pain, syncope, neurologic deficits, unilateral weakness, bowel or bladder dysfunction. She does state that every now and again she will feel weak, diaphoretic and cold, when she stands up from a seated position while feeling this way. Came in for further evaluation out of abundance of caution. Patient states that she has not been eating or drinking much, does have a history of dehydration. Has a loop recorder in place, states that she is not exactly sure how to use it and has not been recording any of these events. History was obtained via conversation with patient and daughter. On arrival, patient hemodynamically stable, alert, oriented x4, appropriate, GCS 15, moving all extremities spontaneously, pupils equal and reactive to light. Full physical exam performed and significant for very clinically well-appearing female no acute distress. Differential includes cardiac exam without murmurs gallops or rubs. Lungs are clear anterior and posterior bilaterally. No lower extremity edema. Pulses equal symmetric in upper and lower extremities without delay. She is neurologically intact, ambulatory and very clinically well. Patient placed on continuous cardiac monitoring and continuous pulse ox with initial blood pressure 184/85, heart rate 86, saturation 99% on room air. Independent interpretation of EKG shows sinus rhythm 79 bpm with FL interval 159, QRS 90, QTc 395. Normal axis and no acute ischemic changes. Patient was given IV fluid bolus for symptomatic management and correction of underlying abnormalities. Workup independently interpreted and significant for nonactionable CBC. Creatinine normal, but BUN mildly elevated 24. Troponin negative. On independent interpretation of imaging, no acute cardiopulmonary space disease on chest x-ray. See radiology read for full review of final results. Heart score 4. On reevaluation, patient resting comfortably baseline. Given patient presentation, workup, history, this most likely represents orthostatic versus vasovagal presyncope. Positional, worse in the morning and better with exertion/p.o. intake. Recommend she follow-up with cardiology and was shown how to use loop recorder. She voiced her understanding. Because patient at baseline without signs or symptoms of clinical decompensation, deemed appropriate for discharge. Results were relayed to patient who voiced understanding and were agreeable to outpatient management and follow up. I discussed my clinical impression with patient and answered all questions. At this time, the evidence for any other entities in the differential is insufficient to warrant any further testing or ED observation. This was explained as well. Advisory was given that persistent or worsening symptoms require further evaluation. I confirmed the understanding of this discussion. [employer] Install[employer] disclaimer Much of this encounter note is an electronic supervisor mold yard spoken language to printed text. Electronic supervisor mold yard of the spoken language may permit errors. Although I have reviewed the note, some errors may still exist. Critical Care Critical Care Time Critical Care Time: No
[2025-02-17] MEDS: 0.9 % SODIUM CHLORIDE 500 ML IV (17:17)
[2025-02-17 17:47] VITALS: BP 197/85; PULSE 76; RESP 19; TEMP 36.7
== END 2025-02-17 17:49 | disposition home or self-care (01) ==
PROVIDERS: Emergency Provider Emergency Medicine; PCP Family Medicine
DX: M62.81 Muscle weakness (generalized) (principal); R42 Dizziness and giddiness; I10 Essential (primary) hypertension; E78.5 Hyperlipidemia, unspecified
CPT/HCPCS: 71045; 80053; 83735; 84484; 85025; 93005; 96360; 99285; J7040

== ENCOUNTER 2025-03-08 13:27 | Outpatient (POV) | payer MEDICARE, SELFPAY ==
--- OUTSIDE RECORDS SUMMARY | 2025-03-08 13:33 | XMS_ITS | Encounter Summary ---
Author Organization [place] [address] Care Team Providers Care Investment Professional Name Role Phone German Landry MD Primary Care Provider [phone] Cintia Hogan MD Unavailable Unavailable Encounter Details Date Type Department Care Team (Late st Contact Info) Description 08/21/2015 Orders Only [facility] Gastro [facility] [address] [place] [address] [address] Cintia Hogan MD Social History Tobacco Use Types Packs/Day Years Used Date Smoking Tobacco: Never Alcohol Use Standard Drinks/Week Comments No 0 (1 standard drink = 0.6 oz pur e alcohol) Comments No Sex and Gender Information Value Date Recorded Sex Assigned at Not on file Legal Sex Female 4:20 AM EDT Gender Identity Not on file Sexual Orientation Not on file documented as of this encounter Plan of Treatment Not on file documented as of this encounter Procedures Procedure Name Priority Date/Time Associated Diagnosis Comments [facility] EGD Routine 08/21/2015 2:30 PM EST documented in this encounter Results * ED EGD (08/21/2015 2:30 PM EST) 08/21/2015 2:30 PM EST Impressions [facility] - 08/21/2015 3:13 PM EST No stricture was found; for possible stenosis of the upper esophageal sphincter, empiric wire-guided bouginage was performed. (Dilation). 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 (Biopsy). Normal mucosa in the whole stomach. Normal mucosa in the whole examined duodenum. Plan: Follow clinically for dysphagia alleviation - patient to call me if not improved. This section is an excerpt of the full report. Cintia Hogan MD GI PROCEDURE ORDERABLES Final R esult [facility] [address] [place] [address] documented in this encounter Visit Diagnoses Not on filedocumented in this encounter Additional Health Concerns Infection Onset Date Last Indicated Resolved Time ESBL organism 09/10/2021 09/10/2021 documented as of this encounter Care Teams Investment Professional Relationship Specialty Start Date End Date German Landry MD [address] [place] [id number] PCP - General Family Medicine 01/25/14 09/09/22 Cintia Hogan MD [address] [place] [phone] Physician Internal Medicine-Gastroenterology 07/07/16 documented as of this encounter
--- OUTSIDE RECORDS SUMMARY | 2025-03-08 13:33 | XMS_ITS | Encounter Summary ---
Author Organization [place] [address] Care Team Providers Care Professor Of Latin American Studies Name Role Phone Mahendra Mireles Primary Care Provider [phone] German Landry MD Primary Care Provider [phone] Cintia Hogan MD Unavailable Unavailable Encounter Details Date Type Department Care Team (Late st Contact Info) Description 02/01/2013 Orders Only SEP Gastro [facility] [address] [facility] [address] [place] [address] Cintia Hogan MD Social History Tobacco [...] Procedure Name Priority Date/Time Associated Diagnosis Comments [facility] COLONOSCOPY Routine 02/01/2013 10:3 0 AM EDT documented in this encounter Results * [facility] COLONOSCOPY (02/01/2013 10:30 AM EDT) 02/01/2013 10:3 0 AM EDT Impressions [facility] - 02/01/2013 11:58 AM EDT Polyp (15 mm) in the proximal descending colon. (Polypectomy). Internal hemorrhoids. Plan: Colonoscopy in 5 years. This section is an excerpt of the full report, which can be found by clicking the hyperlink. Cintia Hogan MD GI PROCEDURE ORDERABLES Final R esult [facility] [address] [place] [address] documented in this encounter Visit Diagnoses Not on filedocumented in this encounter Additional Health Concerns Infection Onset Date Last Indicated Resolved Time ESBL organism 09/10/2021 09/10/2021 documented as of this encounter Care Teams Professor Of Latin American Studies Relationship Specialty Start Date End Date Mahendra Mireles [address] [facility] [address] [place] [address] PCP - General 08/09/10 01/24/14 German Landry MD [address] [place] [phone] PCP - General Family Medicine 01/25/14 09/09/22 Cintia Hogan MD [address] [place] [id number] Physician Internal Medicine-Gastroenterology 07/07/16 documented as of this encounter
--- OUTSIDE RECORDS SUMMARY | 2025-03-08 13:33 | XMS_ITS | Clinical Summary ---
Author Organization [facility] Address [address] [place] [address] Phone Care Team Providers Care Geriatric Physician Name Role Phone Cintia Hogan MD Unavailable Unavailable Allergies Active Allergy Reactions Criticality Noted Date Comments Chloromycetin 08/13/2012 Ciprofloxacin Itching 08/08/2015 Hydrocodone-Acetaminophen 08/13/2012 Propoxyphene N-Acetaminophen 012 Meperidine 08/13/2012 Diclofenac Sodium Itching 01/22/2021 Doxycycline 08/13/2012 Empracet-Codeine No.3 08/13/2012 Erythromycin Lactobionate 08/13/2012 Hydrocodone 08/13/2012 Cephalexin Itching 01/09/2021 Oxycodone-Acetaminophen 08/13/2012 Sulfa (Sulfonamide Antibiotics) Itching 08/29 Trazodone Itching 11/14/2021 Acetaminophen-Codeine 08/13/2012 Doxycycline Hyclate 08/13/2012 Medications calcium carbonate-vitamin D3 600 mg(1,500mg) -800 unit Oral Tablet Take 1 Tab by mouth 2 times daily. Active Cholecalciferol, Vitamin D3, (VITAMIN D3) 5,000 unit Oral TabletIndications :Insufficiency fracture of pelvis with routine healing,Osteoporo sis, unspecified osteoporosis type, unspecified pathological fracture presence Take 1 Tab by mouth daily. 8 Active lactobacillus rhamnosus, GG, (CULTURELLE) 10 billion cell Oral CapsuleIndication s:UTI symptoms Take 1 Cap by mouth daily. Active Miscellaneous Medical Supply Vagl Misc Lidocaine cream 1.5% 2-3 times daily PRN. 45 Each 0 Active albuterol (PROVENTIL HFA;VENTOLIN HFA) 90 mcg/actuation Inhl HFA Aerosol InhalerIndication s:Sinobronchitis Inhale 2 Puffs into the lungs every 4 hours as needed for Wheezing. 1 Each 2 2 Active mirabegron (MYRBETRIQ) 25 mg Oral Tablet Sustained Release 24 hrIndications:Mix ed stress and urge urinary incontinence Take 1 Tablet by mouth daily. 30 Tablet 2 Active oxybutynin (DITROPAN-XL) 5 mg Oral Tablet Extended Rel 24 hrIndications:Ove ractive bladder Take 1 Tablet by mouth daily. 30 Tablet 5 2 Active losartan-hydrochl orothiazide (HYZAAR) 50-12.5 mg Oral TabletIndications :Essential hypertension TAKE 1 TABLET BY MOUTH DAILY 90 Tablet 3 2 Active simethicone (MYLICON) 80 mg Oral Tablet, ChewableIndicatio ns:Postprandial abdominal bloating Take 1 Tablet by mouth 4 times daily as needed for Flatulence. 120 Tablet 2 2 Active atorvastatin (LIPITOR) 10 mg Oral Tablet Take 1 Tablet by mouth nightly. 30 Tablet 2 2 Active amitriptyline (ELAVIL) 10 mg Oral TabletIndications :Cervical neuralgia,Insomni a, persistent Take 1 Tablet by mouth nightly as needed for Sleep. 30 Tablet 2 2 Active LORazepam (ATIVAN) 0.5 mg Oral TabletIndications :Anxiety,Other insomnia Take 1 Tablet by mouth every 8 hours as needed for anxiety 90 Tablet 5 2 Active estradioL (ESTRACE) 0.01 % (0.1 mg/gram) Vagl CreamIndications: Vaginal atrophy Place 1 g vaginally daily. Apply pea-sized amount using fingertip into the vagina (or as instructed) nightly 2-3 x per week. 42.5 g 1 3 Active fosfomycin (MONUROL) 3 gram Oral PacketIndications :Recurrent UTI Take 1 packet by mouth every 7 days for 6 months. 24 Packet 3 Active alendronate (FOSAMAX) 70 mg Oral TabletIndications :Age-related osteoporosis without current pathological fracture SWALLOW 1 TAB WITH A FULL GLASS OF WATER ON AN EMPTY STOMACH ONCE WEEKLY.DO NOT LIE DOWN, EAT,DRINK, OR TAKE OTHER MEDS FOR AT LEAST 30 MINUTES 12 Tablet 3 3 Active Active Problems Problem Noted Date Diagnosed Date Combined forms of age-related cataract of both e yes 07/13/2023 Assessment & Plan (07/13/2023 9:38 AM EDT): Patient reports with her glasses, vision is acceptable. Educated on findings. Not visually significant. No surgical intervention indicated. Continue to monitor. Continue with current glasses. Recommend Refresh or Systane 1 gtt qday OU. Patient aware to call with worsening or persistent symptoms. I reviewed and interpreted OCT scans from today's visit - nerve WNL; macula WNL. Cervical neuralgia 08/13/2022 Overview (08/13/2022): Start nightly elavil Follow-up with Dr. Hwang to discuss treatment options. Dyslipidemia 06/04/2022 Overview (06/17/2022): Reiterated low fat diet Declines statin Mixed stress and urge urinary incontinence 04/23 Overview (04/23/2022): Ditropan causing too much dryness, switch to Mybretriq Cerebral atrophy 12/31/2021 Overview (12/31/2021): Noted on head CT 2015 Normal mentation Recurrent UTI (urinary tract infection) 02/13/20 21 Assessment & Plan (12/31/2021 8:34 AM EDT): Stopped the mybretriq and estrogen cream Assessment & Plan (05/08/2021 3:11 PM EDT): Followed by urogynecology On Monurol every 10 days. Having mild symptoms. Check urine culture and follow-up accordingly. Assessment & Plan (04/16/2021 3:38 PM EDT): Abd/pelvic ct ok Bladder wash negative Using premarin and prescribed monurol. Has not started it yet. Assessment & Plan (02/12/2021 10:35 AM EDT): Has OAB and is post-menopausal. Recommend restarting myrbetriq once daily and restart use of premarin 2-3 times per week has previously indicated. May continue to use lidocaine as needed for the dysuria. If symptoms continue, to follow back up with urogynecology. Generalized osteoarthritis of multiple sites Overview (12/31/2021): Intolerance to NSAIDS Nonintractable headache 11/02/2017 Overview (11/02/2017): Several months. Tx for rhinosinusitis not affective. Head CT neg. Saw ENT. Referred to neurology. Now with migraine ear piercing that are helping. Osteoporosis 08/11/2016 Overview (07/29/2022): Hx of pelvic insufficiency fracture not related to fall and right hip fracture with ORIF. Has osteoporosis and in the past has refused tx . Fosamax ineffective continue calcium and vit D. Tried Prolia but was unable to afford this, too expensive with insurance Started on Fosamax dexa scan 06/25/16 and 12/2021 Interpretation: Bone mineral density is in the osteoporotic range. Gastroesophageal reflux disease without esophagi tis 01/31/2016 Overview (09/10/2021): EGD 2014 No stricture was found; for possible stenosis of the upper esophageal sphincter, empiric wire-guided bouginage was performed. (Dilation). 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 (Biopsy). Normal mucosa in the whole stomach. Normal mucosa in the whole examined duodenum. Plan: Follow clinically for dysphagia alleviation - patient to call me if not Improved. Path 201408/21/15 20:16 EST Diagnosis Gastroesophageal junction, biopsy: - Gastroesophageal junction with suggestion of reflux-like change. - No evidence of intestinal metaplasia. - Mild chronic inflammation of gastric mucosa. Assessment & Plan (09/10/2021 10:20 AM EST): Restart PPI Living will on file 01/31/2016 Anxiety 10/08/2015 Overview (07/25/2021): Lorazepam TID dosing. . Denies HSI, AVH, anhedonia, despair. No adverse drug effects Legal issues: none Family or personal history of substance abuse: none Psych hx: anxiety Risks and benefits of chronic narcotic / stimulant treatment discussed including anorexia, insomnia, constipation, dependence, tolerance, diversion, and addiction. Treatment plan: Lowest effective dose with respect to pain, performance, behavior, and disability. CSA discussed and reviewed. Attempt to get ABIMBOLA UDS periodically Pill counts Esophageal dysphagia 08/22/2015 Overview (10/15/2020): Stable on PPI intermittently. 06/23/16 Symptoms improved. On prilosec, sees GI. Christo has afternoon symptoms. Thinks ativan helps and is related to IBS and anxiety. Will try low dose reglan 07/08/16 High-Resolution Esophageal Manometry Impression: - Normal esophageal motility. - Questionable small hiatal hernia. This has not been noted endoscopically nor on Barium swallow. - Possible extrinsic vascular compression on the mid esophagus of questionable clinical significance. EGD 07/2015 No stricture was found; for possible stenosis of the upper esophageal sphincter, empiric wire-guided bouginage was performed. (Dilation). 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 (Biopsy). Normal mucosa in the whole stomach. Normal mucosa in the whole examined duodenum. Plan: Follow clinically for dysphagia alleviation - patient to call me if not Improved. [id number] 08/21/15 14:30 EST 08/21/15 20:16 EST Diagnosis Gastroesophageal junction, biopsy: - Gastroesophageal junction with suggestion of reflux-like change. - No evidence of intestinal metaplasia. - Mild chronic inflammation of gastric mucosa. Irritable bowel syndrome with diarrhea 5 Overview (10/15/2020): Well controled. 08/11/16 Still has epigastric discomfort and bloating after eating. Resolves after a couple of hours. Denies n/v/d, dark or bloody stools. Symptoms not related with activity or associated with SOB. Is following up with GI. 06/23/16 Continues to have feelings of fullness and bloating related to eating. Denies dysphagia and pain. Symptoms are helped some with ativan. Has added fiber 08/08/16 IMPRESSION: Normal gastric emptying study. Essential hypertension 02/09/2015 Overview (06/04/2022): BP Readings from Last 3 Encounters: 06/04/22 (!) 148/80 04/23/22 128/70 04/10/22 116/74 Taking meds. Denies chest pain and SOB, swelling, and orthostatics. Will continue current dose of one tab daily and monitor. Assessment & Plan (07/09/2021 9:52 AM EDT): Has been well controlled. Higher reading here today. No symptoms. Did not take medication today because she thought her bp was too low this morning at 122/70. Instructed her to take her medicine when she gets home. Given parameters on when to hold bp med, when systolic is less than 100. Assessment & Plan (05/31/2021 9:51 AM EDT): Hasn't felt well with some generalized complaints. Normal EKG. One single reading of elevated bp this morning and two low readings two weeks ago. No sign of acute infectious source. Given b12. Check BMP. No med changes. Continue to monitor bp and followup in 2-4 weeks for review. Insomnia, persistent 01/25/2014 Overview (08/13/2022): On lorazapem. Helps with anxiety but not with insomnia. no adverse drug effects Side effects to vistaril Trazodone ineffective Will restart elavil and titrate up to effectiveness Resolved Problems Problem Noted Date Diagnosed Date Resolved Date Need for shingles vaccine 05/17/2018 Overview (05/17/2018): given rx 05/17/18 Insufficiency fracture of pe lvis with routine healing 02/10/2018 11/02/2019 Acute right-sided low back pain 11/02/2017 11/11/2018 Overview (11/02/2017): 11/02/17 Several day hx of right low back and buttock pain. No new activity or injury. No radiation of pain or paresthesias. No change in bowel or urinary habits or continence. No prior hx. Will try Ice, heat, NSAID's, exercises / stretches, PT and chiropractory discussed. Hematuria, microscopic 08/21/201711/02 Overview (08/21/2017): Sent for culture Screening for depression 01/31/2016 Overview (11/02/2017): In the past two weeks, how often have you felt down, depressed, or hopeless? None Have you felt little interest or pleasure in doing things? no Alcohol screening 01/31/2016 01/22/2021 Overview (11/02/2017): Does not drink alcohol Closed fracture of neck of r ight femur with routine healing 10/15/2015 01/31/2016 Overview (10/15/2015): S/p fall 10/08/2015. now s/p ORIF and doing well. RUQ abdominal pain 07/11/2015 6 Overview (10/15/2015): Symptoms improved with increased dose of ativan. Immunizations Immunization Administration Dates Next Due Hepatitis A, Adult 08/15/2019,02/09/2019 Influenza High Dose 06/16/2019, 8,06/04/2017,06/23,06/13/2015 Influenza Vaccine, Unspecifi ed Formulation 07/01/2014 Moderna SARS-CoV-2 Vaccine 1 2+ Yrs (Light blue border) 11/07/2020,10/10/2020 Pneumococcal Conjugate Vacci ne 13 Valent 02/09/2015 Pneumococcal Polysaccharide 23 Valent 01/25/2014 Quadrivalent Influenza High Dose 06/04/2022,06/28,07/11/2020 Tdap 02/09/2015,01/27/1997 Zoster 09/17/2009 Zoster Recombinant 03/11/2019,11/22/2018 Surgical History Surgery Date Site/Laterality Comments HYSTERECTOMY COLONOSCOPY 02/01/13 polyp HIP SURGERY 10/10/2015 Right 3 pins placed in right hip UPPER GASTROINTESTINAL ENDOSCOPY ESOPHAGEAL MOTILITY STUDY 07/08/2016 N/A ESOPHAGEAL MANOMETRY; Surgeon: Anca Cabrera MD; Location: [facility]; Service: Endoscopy Medical History Medical History Date Comments Hypertension Colon polyp 02/01/13 Full code status 01/25/14 Living will, counseling/discussion 01/25/14 declines [facility] vent support and shelter nutrition via feeding tubes Insomnia Neck pain Shoulder pain Knee pain Family History Medical History Relation Name Comments Cancer Father Cancer Mother Allergies Neg Hx Bleeding Prob Neg Hx Cirrhosis Neg Hx Colon Cancer Neg Hx Colon Polyps Neg Hx Crohn's Disease Neg Hx Hearing Loss Neg Hx Heart Disease Neg Hx Liver Disease Neg Hx Migraines Neg Hx Thyroid Disease Neg Hx Relation Name Status Comments Father Mother Social History Tobacco Use Types Packs/Day Years Used Date Smoking Tobacco: Never Smokeless Tobacco: Never Tobacco Cessation:Counseling Given: Not Answered Alcohol Use Standard Drinks/Week Comments No 0 (1 standard drink = 0.6 oz pur e alcohol) PHQ-2 Answer Date Recorded PHQ-2 Total Score 0 12/31/2021 Comments No Sex and Gender Information Value Date Recorded Sex Assigned at Not on file Legal Sex Female 4:20 AM EDT Gender Identity Not on file Sexual Orientation Not on file Obstetrics History Last Filed Vital Signs Vital Sign Reading Time Taken Comments Blood Pressure 128/82 08/13/2022 8:12 AM EST Pulse 73 07/29/2023 8:44 AM EDT Temperature 36.4 C (97.6 F) 08/13/2022 8:12 AM EST Respiratory Rate 18 08/13/2022 8:12 AM EST Oxygen Saturation 99% 07/29/2023 8:44 AM EDT Inhaled Oxygen Concentration - - Weight 47.2 kg (104 lb) 03/04/2023 8:56 AM EDT Height 152.4 cm (5') 08/13/2022 8:12 AM EST Body Mass Index 20.31 08/13/2022 8:12 AM EST Plan of Treatment Health Maintenance Due Date Last Done Comments Wellness Exam Medicare 1943 RSV or 60+ (1 - 1-dose 75+ series) 2016 COVID-19 Vaccine ( season) 2024 10/01/2021, 11/07/2020, 10/10/2020 DTaP/TDaP/Td (3 - Td or Tdap) 02/09/2025 02/09/2015, 01/27/1997, 12/01/1996 Influenza Vaccine (Season Ended) 2025 06/04/2022, 07/09/2021, 07/11/2020, Additional history exists Pneumococcal Vaccine 50+ Completed 02/09/2015, 12/29 Zoster Completed 03/11/2019, 10/30, 09/17/2009 Bone Density Screening Completed 01/20/2022, 2015 Hepatitis B Vaccine Aged Out No longe r eligible based on patient's age to complete this topic Meningococcal B Vaccine Aged Out No l onger eligible based on patient's age to complete this topic Goals Goal Patient Goal Type Associated Problems Recent Progress Patient-Stated? Author Blood Pressure < 140/90 Blood Pressure 128/82(2021 8:12 AM EST) Clarisa Cordero RMA Maintain a healthy diet, exercise regularly and maintain an ideal body weight General Clarisa Cordero RMA Medical Devices Implanted Type Area Cross Cut Sawyer Device Identifier Shelf Expiration Date Model / Serial / Lot Screw Cannulated Asnis Iii Ti 6.5 X 85mm Tl20mm - [id number] Implanted:Qty: 1 on 10/09/2015 by Tor Stuart MD at [facility] Right: Hip ABDOULAYE:ORTHOPEDI CS [id number] / / Screw Cannulated Asnis Iii Ti 6.5 X 80mm Tl20mm - [id number] Implanted:Qty: 2 on 10/09/2015 by Tor Stuart MD at [facility] Right: Hip ABDOULAYE:ORTHOPEDI CS [id number] / / Procedures Procedure Name Priority Date/Time Associated Diagnosis Comments DX BONE DENSITY AXIAL SKELETON Routine 01/20/2022 9:59 AM EDT Age-related osteoporosis without current pathological fracture from Last 3 Months or Most Recently Relevant to Health Maintenance Results * DX BONE DENSITY AXIAL SKELETON (01/20/2022 9:59 AM EDT) Anatomical Region Laterality Modality Dexa Scan 01/20/2022 Narrative 01/22/2022 8:43 AM EDT Indication: The patient is a post-menopausal female over age 65 with clinical risk factors for an osteoporotic fracture that requires a bone density assessment. Study was performed on [employer] 5. Bone Density: Region BMD T-score Z-score Femoral Neck (Left) 0.448 -3.6 -1.3 Total Hip (Left) 0.410 -4.4 -2.3 1/3 Radius (Left) 0.531 -2.7 0.4 World Health Organization criteria for BMD interpretation classify patients as: Normal (T-score at or above -1.0), Low Bone Density (T-score between -1.0 and -2.5), or Osteoporotic (T-score at or below -2.5). T Scores are reported in Postmenopausal women and in men age 50 and older. Z-scores are reported in females prior to menopause and in males younger than age 50. 10-year Fracture Risk: FRAX not reported because: Some T-score for Spine Total or Hip Total or Femoral Neck at or below -2.5 Prior hip or vertebral fracture Previous Exams: Region Date Age BMD T-score BMD Change Total Hip(Left) 01/20/2022 81 0.410 -4.4 -7.9%* 06/25/2016 75 0.445 -4.1 1/3 Forearm(Left) 01/20/2022 81 0.531 -2.7 -4.5% 06/25/2016 75 0.555 -2.3 *Denotes significance at 95% confidence level, LSC for AP Spine = 0.032g/cm2, LSC for Total Hip = 0.024 g/cm2, LSC for Distal 1/3 Radius = 0.026 g/cm2, site specific LSC for Total Hip = 0.022 g/cm2 BMD is shown in g/cm2 and BMD Change indicates change vs previous BMD Clinical Information Provided by Patient: Have had a previous hip or vertebral fracture Has had a low trauma fracture Has used or is currently using the following medications: Calcium, Vitamin D Patient maximum height was 62 Menopause Age: 34 Patient is Postmenopausal. Has low body mass. Interpretation: Bone mineral density is in the osteoporotic range. A minimum of two years may be required between bone density studies due to inherent testing precision limitations. Intervals between BMD testing should be determined according to each patient's clinical status: typically one year after initiation or change of therapy is appropriate, with longer intervals once therapeutic effect is established. The spine portion of the study was previously omitted due to scoliosis within the region of interest. The left hip bone mineral density is significantly decreased since the last exam. Although not approved for monitoring therapy the forearm bone mineral density is not significantly changed since the last exam. Reported by: Vicki Lee PA-C, CCD on 01/20/2022 2:39:00 PM. 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
--- OUTSIDE RECORDS SUMMARY | 2025-03-08 13:33 | XMS_ITS | Encounter Summary ---
Author Organization [place] [address] Care Team Providers Care Varnisher Name Role Phone German Landry MD Primary Care Provider [phone] Cintia Hogan MD Unavailable Unavailable Encounter Details Date Type Department Care Team (Late st Contact Info) Description 04/27/2018 Orders Only SEP Gastro [facility] [address] [address] Cintia Hogan MD Social History Tobacco Use Types Packs/Day Years Used Date Smoking Tobacco: Never Smokeless Tobacco: Never Alcohol Use Standard Drinks/Week Comments No 0 (1 standard drink = 0.6 oz pur e alcohol) Comments No Sex and Gender Information Value Date Recorded Sex Assigned at Not on file Legal Sex Female 4:20 AM EDT Gender Identity Not on file Sexual Orientation Not on file documented as of this encounter Functional Status * Is the person deaf or does he/she have serious difficulty hearing? Answer Date of Assessment Author No 11/02/2017 10:32 AM Jose Armando Kwong CMA * Is the person blind or does he/she have serious difficulty seeing even when wearing glasses? Answer Date of Assessment Author No 11/02/2017 10:32 AM Jose Armando Kwong CMA * Does this person have serious difficulty walking or climbing stairs? Answer Date of Assessment Author No 11/02/2017 10:32 AM Jose Armando Kwong CMA * Does this person have difficulty dressing or bathing? Answer Date of Assessment Author No 11/02/2017 10:32 AM Jose Armando Kwong CMA * Because of a physical, mental or emotional condition, does this person have difficulty doing errands alone such as visiting a doctor's office or shopping? Answer Date of Assessment Author No 11/02/2017 10:32 AM EST Jose Armando Arenas CMA documented as of this encounter Mental Status * Because of a physical, mental or emotional condition, does this person have serious difficulty concentrating, remembering or making decisions? Answer Entry Date Author No 11/02/2017 10:32 AM EST Jose Armando Arenas CMA documented in this encounter Plan of Treatment Not on file documented as of this encounter Goals Goal Patient Goal Type Associated Problems Recent Progress Patient-Stated? Author Blood Pressure < 140/90 Blood Pressure 128/82(2021 8:12 AM EST) No ReynosoClarisa N, RMA Maintain a healthy diet, exercise regularly and maintain an ideal body weight General No Reynoso, Clarisa N, RMA documented as of this encounter Procedures Procedure Name Priority Date/Time Associated Diagnosis Comments GMED COLONOSCOPY Routine 04/27/2018 7:30 AM EDT documented in this encounter Results * GMED COLONOSCOPY (04/27/2018 7:30 AM EDT) 04/27/2018 7:30 AM EDT Impressions [facility] - 04/27/2018 7:42 AM EDT The examination was negative from a standpoint of screening. . Diverticulosis of the proximal ascending colon, distal descending colon and sigmoid colon. Internal hemorrhoids. Plan: Colonoscopy in 5 years due to previous history of polyps. This section is an excerpt of the full report. Cintia Hogan MD GI PROCEDURE ORDERABLES Final R esult Performing Organization Address City/State/[facility] Co de Phone Number [facility] [address] [place] [id number] documented in this encounter Visit Diagnoses Not on filedocumented in this encounter Additional Health Concerns Infection Onset Date Last Indicated Resolved Time ESBL organism 09/10/2021 09/10/2021 Assessment Noted Time A fall risk assessment has been complete d for the patient 05/13/2017 3:26 PM EDT documented as of this encounter Care Teams Varnisher Relationship Specialty Start Date End Date German Landry MD [address] [place] [address] PCP - General Family Medicine 01/25/14 09/09/22 Cintia Hogan MD [address] [place] [address] Physician Internal Medicine-Gastroenterology 07/07/16 documented as of this encounter
[2025-03-08 14:50] VITALS: BP 139/67; PULSE 83; RESP 18; O2SAT 96; BMI 17.5
--- NOTE | 2025-03-08 14:52 | EXP.PAIN.SOA ---
[facility] Disclaimer: The information contained in this section may have been updated after the patient was seen, as this information can be updated by other users. 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 Evidence of bihemispheric strokes in the past including posterior circulation CVA, (clinically silent). Hypokalemia Cellulitis of right pinna Bladder prolapse, female, acquired Dysuria IFG (impaired fasting glucose) Memory changes Recurrent UTI Allergic rhinitis Insomnia Anxiety Osteoporosis GERD (gastroesophageal reflux disease) Essential hypertension Hyperlipidemia Broken hip Surgical History History of loop recorder History of cardiac cath History of repair of left hip joint History of hysterectomy Family History Son Cancer Social History Smoking Status: Never smoker alcohol intake: never substance use type: denies use current occupational status: other Travel in the last 8 weeks?: None household members: spouse housing: house lives independently: Yes marital status: number of children: 4 number of grandchildren: 6 PM Subjective & Objective Subjective Subjective:: Patient is a pleasant 84-year-old female who presents today for follow-up of left SI injection on 02/14/2025. Today she rates her pain a 0 out of 10. Patient does state that she pretty much had fairly immediate relief and that by the next day she had no pain. Patient states that she will occasionally have pain every so often but it is nothing like what it was. Patient is rating significant improvement with this injection. Her Gavin has been reviewed and is appropriate. Review of Systems: General: No recent weight changes, no fever, no sleep disturbances Respiratory: No cough, no shortness of air, no recurring pulmonary infections Cardiovascular/peripheral vascular: No chest pain, no palpitations, no edema, no shortness of breath Gastrointestinal: No new onset incontinence, normal bowel movements reported Genitourinary: No new onset incontinence Musculoskeletal: Low back pain Psychiatric: [Normal mood/affect] Neurological: [Denies weakness in extremities], [denies balance issues] Pain at rest (0-10 scale): 0 Objective Objective:: Physical Exam: General: Alert and oriented x3, no acute distress, pleasant and cooperative Lungs: Respirations even and unlabored, symmetrical chest expansion Eyes: PERRL Musculoskeletal: Flexion and extension of lumbar spine within normal limits Neurological: Speech clear, no gross sensory deficit Has patient had previous pain injection?: Yes Percent improvement in pain since last injection: 80% Conservative treatment options previously tried: Home exercise plan Length of treatment: Longer than 12 weeks Meds Home Medications and Allergies Home Medications ?Medication ?Instructions ?Recorded ?Confirmed ?Type aspirin 81 mg tablet,delayed 81 mg PO DAILY 30 days #30 tabs 01/01/24 03/08/25 Rx release atorvastatin 40 mg tablet 40 mg PO HS 30 days #90 tabs 01/27/24 03/08/25 Rx estradiol 0.01% (0.1 mg/gram) See Rx Instructions vaginal 05/09/24 03/08/25 Rx vaginal cream .COMPLEX #42.5 grams ifoyozon-wktt-ssdu 8 mg-folic 400 1 tab PO DAILY 06/20/24 03/08/25 History mcg-K 50 mcg-lutein 300 mcg tablet (Centrum Silver Women) alendronate 70 mg tablet 70 mg PO WEEKLY #14 tabs 08/03/24 03/08/25 Rx metoprolol succinate 25 mg 25 mg PO DAILY #90 tabs 09/14/24 03/08/25 Rx tablet,extended release 24 hr (Toprol XL) clopidogrel 75 mg tablet (Plavix) 75 mg PO DAILY #30 tabs 10/13/24 03/08/25 Rx polyethylene glycol 3350 17 17 g PO BID #1,020 grams 01/03/25 03/08/25 Rx gram/dose oral powder (Miralax) lorazepam 0.5 mg tablet See Rx Instructions .Route 02/06/25 03/08/25 Rx .COMPLEX PRN anxiety #90 tabs memantine 10 mg tablet 10 mg PO BID #180 tabs 02/07/25 03/08/25 Rx losartan 50 mg-hydrochlorothiazide 1 tab PO DAILY #90 tabs 02/13/25 03/08/25 Rx 12.5 mg tablet New Prescriptions to Start Prescriptions: Allergies Allergy/AdvReac Type Severity Reaction Status Date / Time acetaminophen (From Allergy Mild Rash Verified 02/27/25 09:16 Tylenol-Codeine #3) ciprofloxacin (From Cipro) Allergy Mild Rash Verified 02/27/25 09:16 codeine (From Allergy Mild Rash Verified 02/27/25 09:16 Tylenol-Codeine #3) cyclobenzaprine (From Allergy Mild Rash Verified 02/27/25 09:16 Flexeril) doxycycline Allergy Mild Rash Verified 02/27/25 09:16 erythromycin base Allergy Mild Rash Verified 02/27/25 09:16 hydrocodone Allergy Mild Rash Verified 02/27/25 09:16 loratadine (From Claritin) Allergy Mild Rash Verified 02/27/25 09:16 oxycodone (From Roxicet) Allergy Mild Rash Verified 02/27/25 09:16 Assessment and Plan *Assessment and plan (1) Sacroiliitis: Status: Acute Category: Medical Code(s): M46.1 - Sacroiliitis, not elsewhere classified Plan Patient has had significant improvement and does not require any additional injection therapy at this time. Patient will return to clinic in 6 weeks for reevaluation of symptoms and plan of care. Patient has been instructed to contact the clinic with any concerns before the next appointment. Dr. Marti has reviewed this note and agrees with this plan of care. This note was dictated using voice recognition software and make contain errors or omissions. All injections are used with Lidocaine, Bupivacaine and dexamethasone. Occasionally urine drug screen is needed to verify patient's compliance with our office pain contract. This is ordered based off specific treatments related to chronic pain with the potential to abuse certain medications.
== END 2025-03-08 23:59 | disposition home or self-care (01) ==
LOC: SC.PAIN 13:27
PROVIDERS: PCP Family Medicine; Visit Provider Nurse Practitioner Family
DX: M46.1 Sacroiliitis, not elsewhere classified (principal)
CPT/HCPCS: 99212; G0463

== ENCOUNTER 2025-03-09 13:00 | Outpatient (CLI) | payer MEDICARE, SELFPAY ==
[2025-03-09 18:30] LABS: Microscopic, Urine URINE MICROSCOPIC (MICROSCOPIC)
[2025-03-09 18:36] LABS: Basophils % 0.6 % (0.1-2.0); Eosinophils # 0.1 Kmm3 (0.0-0.4); Eosinophils % 1.3 % (0.1-12.0); Hematocrit 35.6 % (37.0-47.0); Hemoglobin 11.5 g/dL (12.2-16.2); Immature Granulocytes # 0.02 10^3uL; Immature Granulocytes % 0.3 %; Lymphocytes % 14.6 % (10-50); Mean Corpuscular HGB Conc 32.3 g/dL (31.8-35.4); Mean Corpuscular Hemoglobin 28.5 pg (27.0-31.2); Mean Corpuscular Volume 88.3 fl (81-99); Mean Platelet Volume 10.5 fl (7.4-10.4); Monocytes # 0.5 K/mm3 (0.1-1.0); Neutrophils % 75.2 % (37.0-80.0); Nucleated Red Blood Cells # 0 10^3/uL; Nucleated Red Blood Cells % 0 %; Platelet Count 252 K/mm3 (142-424); Red Blood Count 4.03 M/mm3 (4.20-5.40); Red Cell Distribution Width 14.6 % (11.5-17.5); Red Cell Distribution Width-SD 47.3 fL; White Blood Count 6.7 K/mm3 (4.8-10.8)
[2025-03-09 18:47] LABS: Appearance,Urine CLEAR (Clear); Bilirubin,Urine Negative (Negative); Blood, Urine TRACE-I (Negative); Color,Urine YELLOW (Yellow); Glucose,Urine (UA) Negative (Negative); Ketones,Urine Negative (Negative); Leukocyte Esterase,Urine TRACE (Negative); Nitrate,Urine Negative (Negative); Protein,Urine Negative (Negative); Urobilinogen,Urine 0.2 EU/dl (0.2)
[2025-03-09 19:33] LABS: Hemoglobin A1C 5.5 % (4.0-6.0)
[2025-03-09 19:50] LABS: Alanine Aminotransferase 17 U/L (12-78); Albumin Level 3.7 g/dl (3.5-5.0); Albumin/Globulin Ratio 1.5 (1.1-1.8); Alkaline Phosphatase 51 U/L (38-126); Anion Gap 5.7 mEq/L (5-15); Aspartate Amino Transferase 26 U/L (14-36); Bilirubin,Total 0.3 mg/dl (0.2-1.3); Blood Urea Nitrogen 16 mg/dl (7-17); Calcium 9.2 mg/dl (8.4-10.2); Carbon Dioxide 31 mmol/L (22.0-30.0); Chloride 97 mmol/L (98-107); Estimated Glomerular Filt Rate 95 ml/min (>60); GFR (African American) 116 ML/MIN (>60); Globulin 2.5 g/dL (1.3-3.2); Glucose 99 mg/dl (74-100); Potassium 3.7 mmoL/L (3.5-5.1); Sodium 130 mmol/L (136-145); Total Protein,Serum 6.2 g/dl (6.3-8.2)
[2025-03-09 20:18] LABS: Bacteria,Urine Trace /lpf; Squamous Epithelial Cell,Urine Occasional #/hpf (0-5)
[2025-03-09 20:48] LABS: Vitamin B12 951 pg/mL (239-931)
--- OUTSIDE RECORDS SUMMARY | 2025-03-10 23:26 | XMS_ITS | Encounter Summary ---
Author Organization [place] [address] Care Team Providers Care Ultimate Hoops Trainer Name Role Phone German Landry MD Primary Care Provider [phone] Cintia Hogan MD Unavailable Unavailable Encounter Details Date Type Department Care Team (Late st Contact Info) Description 08/21/2015 Orders Only SEP Gastro CV [address] [place] [address] [address] Cintia Hogan MD Social History [...] Procedure Name Priority Date/Time Associated Diagnosis Comments [facility] EGD Routine 08/21/2015 2:30 PM EST documented in this encounter Results * ED EGD (08/21/2015 2:30 PM EST) 08/21/2015 2:30 PM EST Impressions [facility] - 08/21/2015 3:13 PM EST No [...] MD GI PROCEDURE ORDERABLES Final R esult [facility] [address] [place] [address] documented in this encounter Visit Diagnoses Not on filedocumented in this encounter Additional Health Concerns Infection Onset Date Last Indicated Resolved Time ESBL organism 09/10/2021 09/10/2021 documented as of this encounter Care Teams Ultimate Hoops Trainer Relationship Specialty Start Date End Date German Landry MD [address] [place] [address] PCP - General Family Medicine 01/25/14 09/09/22 Cintia Hogan MD [address] [place] [address] Physician Internal Medicine-Gastroenterology 07/07/16 documented as of this encounter
--- OUTSIDE RECORDS SUMMARY | 2025-03-10 23:27 | XMS_ITS | Encounter Summary ---
Author Organization [place] [address] Care Team Providers Care Package Delivery Room Service Runner Name Role Phone Mahendra Mireles Primary Care Provider [phone] German Landry MD Primary Care Provider [phone] Cintia Hogan MD Unavailable Unavailable Encounter Details Date Type Department Care Team (Late st Contact Info) Description 02/01/2013 Orders Only SEP Gastro CVH [address] [facility] [address] [place] [address] Cintia Hogan MD Social History [...] EDT) 02/01/2013 10:3 0 AM EDT Impressions [facility] - 02/01/2013 11:58 AM EDT Polyp (15 mm) in the proximal descending colon. (Polypectomy). Internal hemorrhoids. Plan: Colonoscopy in 5 years. This section is an excerpt of the full report, which can be found by clicking the hyperlink. Cintia Hogan MD GI PROCEDURE ORDERABLES Final R esult [facility] [address] [place] [address] documented in this encounter Visit Diagnoses Not on filedocumented in this encounter Additional Health Concerns Infection Onset Date Last Indicated Resolved Time ESBL organism 09/10/2021 09/10/2021 documented as of this encounter Care Teams Package Delivery Room Service Runner Relationship Specialty Start Date End Date Mahendra Mireles [address] [facility] [address] [place] [address] PCP - General 08/09/10 01/24/14 German Landry MD [address] [place] [address] PCP - General Family Medicine 01/25/14 09/09/22 Cintia Hogan MD [address] [place] [address] Physician Internal Medicine-Gastroenterology 07/07/16 documented as of this encounter
--- OUTSIDE RECORDS SUMMARY | 2025-03-10 23:27 | XMS_ITS | Clinical Summary ---
Author Organization [facility] Address [address] [facility] [place] [address] Phone Care Team Providers Care Clothing Patternmaker Name Role Phone Cintia Hogan MD Unavailable [...] patient to call me if not Improved. [id number] 08/21/15 14:30 EST 08/21/15 20:16 EST Diagnosis [...] status 01/25/14 Living will, counseling/discussion 01/25/14 declines intermediate vent support and long term nutrition via feeding tubes Insomnia Neck pain [...] Cordero RMA Medical Devices Implanted Type Area Curator Of Collections Device Identifier Shelf Expiration Date Model / Serial / Lot Screw Cannulated Asnis Iii Ti 6.5 X 85mm Tl20mm - [id number] Implanted:Qty: 1 on 10/09/2015 by Tor Stuart MD at [facility] Right: Hip ABDOULAYE:ORTHOPEDI CS [id number] / / Screw Cannulated Asnis Iii Ti 6.5 X 80mm Tl20mm - [id number] Implanted:Qty: 2 on 10/09/2015 by Tor Stuart MD at [facility] Right: Hip ABDOULAYE:ORTHOPEDI CS [id number] / / Procedures Procedure Name Priority Date/Time [...] bone density assessment. Study was performed on [employer] 5. Bone Density: Region BMD T-score Z-score [...] Advance Directives For more information, please contact: [phone] Documents on File Type Date Recorded Patient Day Camp Counselor Expl anation Advance Directives/DNR 10/13/2015 5:07 PM Advance Directives/DNR 10/08/2015 ADVANCE DIRECTIVE 10/08/2015 Advance Directives/DNR 05/09/2015 1:07 PM May 09 2015 17:07:10:975 GMT * Full Code (Latest Code Status on File) Date Activated Date Inactivated Comments 10/09/2015 7:51 PM 10/10/2015 9:59 PM Care Teams Clothing Patternmaker Relationship Specialty Start Date End Date Cintia Hogan MD Physician Internal Medicine-Gastroenterology 07/07/16
--- OUTSIDE RECORDS SUMMARY | 2025-03-10 23:27 | XMS_ITS | Encounter Summary ---
Author Organization [place] [address] Care Team Providers Care Surgical Instrument Maker Name Role Phone German Landry MD Primary Care Provider [phone] Cintia Hogan MD Unavailable Unavailable Encounter Details Date Type Department Care Team (Late st Contact Info) Description 04/27/2018 Orders Only SEP Gastro [facility] [address] [address] Cintia Hogan MD Social History [...] AM EDT) 04/27/2018 7:30 AM EDT Impressions [facility] - 04/27/2018 7:42 AM [...] ORDERABLES Final R esult Performing Organization Address City/State/[facility] Co de Phone Number [facility] [address] [place] [address] documented in this encounter Visit Diagnoses Not on filedocumented in this encounter Additional Health Concerns Infection Onset Date Last Indicated Resolved Time ESBL organism 09/10/2021 09/10/2021 Assessment Noted Time A fall risk assessment has been complete d for the patient 05/13/2017 3:26 PM EDT documented as of this encounter Care Teams Surgical Instrument Maker Relationship Specialty Start Date End Date German Landry MD [address] [place] [address] PCP - General Family Medicine 01/25/14 09/09/22 Cintia Hogan MD [address] [place] [address] Physician Internal Medicine-Gastroenterology 07/07/16 documented as of this encounter
== END 2025-03-09 23:59 | disposition home or self-care (01) ==
LOC: LAB.DROPOF 03-10 23:25
PROVIDERS: PCP Nurse Practitioner; Visit Provider Nurse Practitioner
DX: I10 Essential (primary) hypertension (principal); R53.1 Weakness; R73.01 Impaired fasting glucose; E53.8 Deficiency of other specified B group vitamins
CPT/HCPCS: 80053; 81001; 82607; 83036; 85025; 87086

== ENCOUNTER 2025-03-11 13:18 | Emergency (ER) | payer MEDICARE, SELFPAY ==
[2025-03-11 13:28] LABS: Microscopic, Urine URINE MICROSCOPIC (MICROSCOPIC)
[2025-03-11 13:30] VITALS: BP 160/74; PULSE 93; RESP 14; TEMP 36.8; O2SAT 96; BMI 16.9
[2025-03-11 13:32] LABS: Appearance,Urine SL CLOUDY (Clear); Bilirubin,Urine Negative (Negative); Blood, Urine TRACE-I (Negative); Color,Urine YELLOW (Yellow); Glucose,Urine (UA) Negative (Negative); Ketones,Urine Negative (Negative); Leukocyte Esterase,Urine 1+ (Negative); Nitrate,Urine Negative (Negative); PH,Urine 7.5 (5.0-8.5); Protein,Urine Negative (Negative); Specific Gravity, Urine 1.015 (1.005-1.030); Urobilinogen,Urine 0.2 EU/dl (0.2)
[2025-03-11 13:43] LABS: Bacteria,Urine Trace /lpf; RBC,Urine Occasional #/hpf (0-3); Squamous Epithelial Cell,Urine Occasional #/hpf (0-5)
--- OUTSIDE RECORDS SUMMARY | 2025-03-11 13:45 | XMS_ITS | Encounter Summary ---
Author Organization [place] [address] Care Team Providers Care Arbor Press Operator Name Role Phone German Landry MD Primary Care Provider [phone] Cintia Hogan MD Unavailable Unavailable Encounter Details Date Type Department Care Team (Late st Contact Info) Description 08/21/2015 Orders Only SEP Gastro CV [address] [place] [address] [address] Cintia Hogan MD Social History [...] Procedure Name Priority Date/Time Associated Diagnosis Comments [facility] EGD Routine 08/21/2015 2:30 PM EST documented in this encounter Results * ED EGD (08/21/2015 2:30 PM EST) 08/21/2015 2:30 PM EST Impressions [facility] - 08/21/2015 3:13 PM EST [...] MD GI PROCEDURE ORDERABLES Final R esult [facility] [address] [place] [address] documented in this encounter Visit Diagnoses Not on filedocumented in this encounter Additional Health Concerns Infection Onset Date Last Indicated Resolved Time ESBL organism 09/10/2021 09/10/2021 documented as of this encounter Care Teams Arbor Press Operator Relationship Specialty Start Date End Date German Landry MD [address] [place] [address] PCP - General Family Medicine 01/25/14 09/09/22 Cintia Hogan MD [address] [place] [address] Physician Internal Medicine-Gastroenterology 07/07/16 documented as of this encounter
--- OUTSIDE RECORDS SUMMARY | 2025-03-11 13:45 | XMS_ITS | Clinical Summary ---
Author Organization [facility] Address One [facility] [place] [address] Phone Care Team Providers Care Social Problems Specialist Name Role Phone Cintia Hogan MD Unavailable [...] patient to call me if not Improved. [id number] 08/21/15 14:30 EST 08/21/15 20:16 EST Diagnosis [...] status 01/25/14 Living will, counseling/discussion 01/25/14 declines usp vent support and half-way nutrition via feeding tubes Insomnia Neck pain [...] Cordero RMA Medical Devices Implanted Type Area Media Clerk Device Identifier Shelf Expiration Date Model / Serial / Lot Screw Cannulated Asnis Iii Ti 6.5 X 85mm Tl20mm - [id number] Implanted:Qty: 1 on 10/09/2015 by Tor Stuart MD at [facility] Right: Hip ABDOULAYE:ORTHOPEDI CS [id number] / / Screw Cannulated Asnis Iii Ti 6.5 X 80mm Tl20mm - [id number] Implanted:Qty: 2 on 10/09/2015 by Tor Stuart MD at [facility] Right: Hip ABDOULAYE:ORTHOPEDI CS [id number] / / Procedures Procedure Name Priority Date/Time [...] bone density assessment. Study was performed on DGTS 5. Bone Density: Region BMD T-score Z-score [...] Advance Directives For more information, please contact: [phone] Documents on File Type Date Recorded Patient Fountain Vending Mechanic Expl anation Advance Directives/DNR 10/13/2015 5:07 PM Advance Directives/DNR 10/08/2015 ADVANCE DIRECTIVE 10/08/2015 Advance Directives/DNR 05/09/2015 1:07 PM May 09 2015 17:07:10:975 GMT * Full Code (Latest Code Status on File) Date Activated Date Inactivated Comments 10/09/2015 7:51 PM 10/10/2015 9:59 PM Care Teams Social Problems Specialist Relationship Specialty Start Date End Date Cintia Hogan MD Physician Internal Medicine-Gastroenterology 07/07/16
--- NOTE | 2025-03-11 13:46 | ED_ITS ---
Discharge Plan Disposition Patient Disposition: Home, Self-Care Condition: Good Prescriptions Prescriptions: No Action atorvastatin 40 mg tablet 40 mg PO HS 30 Days Qty: 90 3RF alendronate 70 mg tablet 70 mg PO WEEKLY Qty: 14 10RF estradiol 0.01 % (0.1 mg/gram) cream See Rx Instructions vaginal .COMPLEX Qty: 42.5 2RF Rx Instructions: Using finger technique daily for two weeks and then twice weekly vaginally; Centrum Silver Women 8 mg iron-400 mcg-50 mcg tablet 1 tab PO DAILY clopidogrel [Plavix] 75 mg tablet 75 mg PO DAILY Qty: 30 11RF metoprolol succinate [Toprol XL] 25 mg tablet extended release 24 hr 25 mg PO DAILY Qty: 90 3RF memantine 10 mg tablet 10 mg PO BID Qty: 180 3RF losartan-hydrochlorothiazide 50-12.5 mg tablet 1 tab PO BID Qty: 180 0RF lorazepam 0.5 mg tablet See Rx Instructions .ROUTE .COMPLEX PRN (Reason: anxiety) Qty: 90 2RF Rx Instructions: tid prn anxiety aspirin 81 mg Tablet,Delayed Release (Dr/Ec) 81 mg PO DAILY 30 Days Qty: 30 0RF polyethylene glycol 3350 [Miralax] 17 gram/dose powder 17 g PO BID Qty: 1020 0RF Referrals Follow up/Referrals: Sarah Dumont APRN [Primary Care Provider, Family Practice] - See instructions Activity Restrictions/Add. Instructions Additional Instructions/Restrictions: As we discussed you need to follow-up with your PCP on Thursday for recheck of your blood work. As we also discussed I would significantly decrease your water intake. Please utilize your wood experimental mechanic to record your symptoms when you have them. Please follow-up with cardiology next week as well for review of your data. If you have any persistent new or worsening signs or symptoms please follow-up sooner with your PCP or return to the ER as needed. Clinical Impressions Clinical Impression: Hyponatremia, Hypokalemia Print Language Print Language: Armenian Discharge ED Provider: Ce Tran General Adult HPI <RACH Guzman - Last Filed: 03/11/25 15:03> General Chief complaint: Weakness Stated complaint: weakness, pressure in head and eyes Time Seen by Provider: 03/11/25 13:46 Mode of Arrival: Ambulatory Source of Information: Patient Description of Symptoms (Recalled from ER Triage Doc. by RN): Pt reports ongoing weakness with no pain. Pt has recently seen PCP and cardiology with labs drawn, at PCP on 03/09/2025 History of Present Illness HPI narrative: Patient presents for evaluation of weakness in the head and eyes that spreads to the rest of her body. Patient has had the symptoms for approximately a month and was evaluated approximately 2 weeks ago in the emergency department for the same complaint. Patient states that the symptoms happen nearly every day however she has no other symptoms such as shortness of breath chest pain fever chills hemoptysis hematochezia melena nausea vomiting diarrhea loss of motor or sensory or focal neurologic deficits. Patient cannot identify any pattern aggravating or relieving symptoms. Related Data Home Medications ?Medication ?Instructions ?Recorded ?Confirmed [id number] 8 mg-folic 400 1 tab PO DAILY 06/2003/09/25 mcg-K 50 mcg-lutein 300 mcg tablet (Centrum Silver Women) Previous Rx's ?Medication ?Instructions ?Recorded aspirin 81 mg tablet,delayed 81 mg PO DAILY 30 days #3 0 tabs 01/01/24 release atorvastatin 40 mg tablet 40 mg PO HS 30 days #90 tabs 01/27/24 estradiol 0.01% (0.1 mg/gram) See Rx Instructions vagi nal 05/09/24 vaginal cream .COMPLEX #42.5 grams alendronate 70 mg tablet 70 mg PO WEEKLY #14 tabs 03/21 metoprolol succinate 25 mg 25 mg PO DAILY #90 tabs tablet,extended release 24 hr (Toprol XL) clopidogrel 75 mg tablet (Plavix) 75 mg PO DAILY #30 t abs 10/13/24 polyethylene glycol 3350 17 17 g PO BID #1,020 grams 0 01/03/25 gram/dose oral powder (Miralax) lorazepam 0.5 mg tablet See Rx Instructions .Route 0 02/06/25 .COMPLEX PRN anxiety #90 tabs memantine 10 mg tablet 10 mg PO BID #180 tabs 02/07 losartan 50 mg-hydrochlorothiazide 1 tab PO BID #180 t abs 03/09/25 12.5 mg tablet Allergies Allergy/AdvReac Type Severity Reaction Status Date / Time acetaminophen (From Allergy Mild Rash Verified 03/09/25 13:44 Tylenol-Codeine #3) ciprofloxacin (From Cipro) Allergy Mild Rash Verified 03/09/25 13:44 codeine (From Allergy Mild Rash Verified 03/09/25 13:44 Tylenol-Codeine #3) cyclobenzaprine (From Allergy Mild Rash Verified 03/09/25 13:44 Flexeril) doxycycline Allergy Mild Rash Verified 03/09/25 13:44 erythromycin base Allergy Mild Rash Verified 03/09/25 13:44 hydrocodone Allergy Mild Rash Verified 03/09/25 13:44 loratadine (From Claritin) Allergy Mild Rash Verified 03/09/25 13:44 oxycodone (From Roxicet) Allergy Mild Rash Verified 03/09/25 13:44 [facility] <RACH Guzman - Last Filed: 03/11/25 15:03> [facility] Disclaimer: The information contained in this section may have been updated after the patient was seen, as this information can be updated by other users. Medical History (Updated 03/11/25 @ 14:52 by RACH Guzman) Vitamin B12 deficiency Massena of toe Massena of foot Bilateral hip pain Bilateral low back pain Chest pain Right to left cardiac shunt Fatigue Abnormal echocardiogram Abnormal Holter monitor finding Cryptogenic stroke Cataract Dementia CVA (cerebral vascular accident) Hypokalemia Cellulitis of right pinna Bladder prolapse, female, acquired Dysuria IFG (impaired fasting glucose) Memory changes Recurrent UTI Allergic rhinitis Insomnia Anxiety Osteoporosis GERD (gastroesophageal reflux disease) Essential hypertension Hyperlipidemia Broken hip Surgical History History of loop recorder History of cardiac cath History of repair of left hip joint History of hysterectomy Family History Son Cancer Social History Smoking Status: Never smoker alcohol intake: never substance use type: denies use current occupational status: retired Travel in the last 8 weeks?: None household members: spouse housing: house lives independently: Yes marital status: number of children: 4 number of grandchildren: 6 Have you lived/traveled outside [place] in past 30 days?: No Contact w/someone who lives/traveled outside US past 30 days?: No Exposure to someone with infectious disease in past 14 days?: No Do you have a fever (greater than 100.4 F or 38 C)?: No Have you tested positive for COVID-19?: No Exposed to someone with COVID-19 in past 14 days?: No Do you have a sore throat?: No Do you have a cough?: No Do you have any weakness?: Yes Do you have any diarrhea?: No Are you experiencing any unusual bleeding?: No Do you have any muscle aches/pain?: No Do you have any abdominal pain?: No Are you experiencing loss of taste or smell?: No Other Medical History Have you received the Flu Vaccine for this season: Yes Have you received the Pneumonia Vaccine: Yes <RACH Guzman - Last Filed: 03/11/25 15:03> ROS Obtained: Yes Systems reviewed as appropriate & no additional complaints except as documented Physical Exam <RACH Guzman - Last Filed: 03/11/25 15:03> General General appearance: alert and in no apparent distress Respiratory Respiratory exam: Present normal lung sounds bilaterally Cardiovascular Cardiovascular exam: Present regular rate Neurological Exam Neurological exam: Present alert and oriented X3 Medical Decision Making <RACH Guzman - Last Filed: 03/11/25 15:03> Medical Records Medical records reviewed: Yes I reviewed the patient's medical records. Screening: Per USPSTF and CDC recommendations, given the prevalence of disease in our region, it is our hospital?s policy to screen for HIV and viral Hepatitis for all patients aged 18 and over and those with ongoing risk factors. Gavin Inquiry Pt receiving controlled substance: No Vital Signs: 03/11/25 13:30 03/11/25 14:07 03/11/25 14:33 Temperature 98.2 F Temperature Source Oral Pulse Rate 79 77 Pulse Rate [Left] 93 H Respiratory Rate 14 18 18 Blood Pressure 148/77 H 147/72 H Blood Pressure [Right Arm] 160/74 H Blood Pressure Mean [Right Arm] 102 Blood Pressure Source Blood Pressure Source [Right Arm] Automatic Cuff Blood Pressure Position 02 Sat by Pulse Oximetry 96 98 99 Oxygen Delivery Method Room Air Room Air 03/11/25 15:02 Temperature 97.9 F Temperature Source Oral Pulse Rate 79 Pulse Rate [Left] Respiratory Rate 17 Blood Pressure 147/72 H Blood Pressure [Right Arm] Blood Pressure Mean [Right Arm] Blood Pressure Source Automatic Cuff Blood Pressure Source [Right Arm] Blood Pressure Position Sitting 02 Sat by Pulse Oximetry Oxygen Delivery Method Room Air Lab Data Lab results reviewed: Yes I reviewed the patient's lab results. Lab Results 03/11/25 13:24: Urine Color Yellow, Urine Appearance Sl cloudy, Urine pH 7.5, Ur Specific [place] 1.015, Urine Protein Negative, Urine Glucose (UA) Negative, Urine Ketones Negative, Urine Blood Trace-i, Urine Nitrate Negative, Urine Bilirubin Negative, Urine Urobilinogen 0.2, Ur Leukocyte Esterase 1+ A, Urine RBC Occasional, Urine WBC 3-5, Ur Squamous Epith Cells Occasional, Urine Bacteria Trace 03/11/25 13:30: WBC 6.3, RBC 4.38, Hgb 12.7, Hct 38.2, MCV 87.2, MCH 29.0, MCHC 33.2, RDW 14.5, Plt Count 275, MPV 10.2, Neut % (Auto) 74.5, Lymph % (Auto) 16.4, [place] % (Auto) 7.4, Eos % (Auto) 0.9, Baso % (Auto) 0.6, Neut # (Auto) 4.7, Lymph # (Auto) 1.0, [place] # (Auto) 0.5, Eos # (Auto) 0.1, Baso # (Auto) 0.0, S odium 130 L, Potassium 3.3 L, Chloride 95 L, Carbon Dioxide 30, Anion Gap 8.3, B UN 19 H, Creatinine 0.70, Estimated Creat Clear 27, Estimated GFR 80, Est GFR ( Amer) 97, Glucose 116 H, Calcium 10.3 H, Magnesium 2.0, Total Bilirubin 0.6, AST 38 H D, ALT 19, Alkaline Phosphatase 52, Total Protein 7.3, Albumin 4.2, Globulin 3.1, Albumin/Globulin Ratio 1.4 03/11/25 13:30 03/11/25 13:30 Orders (Tests/Meds): ED MEDICATIONS Discontinued Medications Generic Name Dose Route Start Last Admin Trade Name Freq PRN Reason Stop Dose Admin Potassium Chloride 40 meq 03/11/25 14:25 03/11/25 14:38 Potassium Chloride 20meq Tab PO 03/11/25 14:26 40 meq ONCE ONE Administration ORDERS Category Date Time Status CBC w/Auto Diff [Complete Blood Count Auto Diff] Stat Lab 03/11/25 13:30 Completed CMP [Comprehensive Metabolic Panel] Stat Lab 03/11/25 13:30 Completed Magnesium Stat Lab 03/11/25 13:30 Completed UA [Urinalysis and Microscopic] Stat Lab 03/11/25 13:24 Completed Urine Culture Stat Micro 03/11/25 13:24 Received Medical Decision Narrative: In summary patient is a 84-year-old female who presents to the emergency department for evaluation of weakness of the head and eyes . Patient is hemodynamically stable upon arrival, febrile. His exam is unremarkable nonfocal including Rosanne Coma Score 15 cranial nerves II through XII intact grossly to exam patient is ambulatory in the emergency department has no focal neurologic deficits pupils equal round reactive to light breath sounds clear and equal bilaterally to the bases abdomen soft nontender no rebound no guarding or rigidity. Differential diagnosis includes electrolyte abnormality versus arrhythmia versus infection etc. Initial workup will be conducted with hematologic labs urinalysis. Initial interventions were considered however patient is asymptomatic currently thus deferred. Initial workup reviewed by me and patient has a sodium of 130 and a potassium of 3.3 the remainder of her hematologic labs are nonactionable.. Upon repeat evaluation I asked the patient about her loop recorder and patient had no idea on how to utilize the device. Patient had never had an event recorded by her input. Showed her how to utilize it prior to discharge. I repleted her potassium and asked her about her water intake and she has been drinking a significant amount of water daily that she feels she was instructed to do. I have advised her to decrease her water intake and follow-up with her PCP on Thursday for recheck of her labs and she was given strict return precautions. Patient verbalized understanding and agreement. <Ce Tran MD - Last Filed: 03/11/25 15:54> Vital Signs: 03/11/25 13:30 03/11/25 14:07 03/11/25 14:33 Temperature 98.2 F Temperature Source Oral Pulse Rate 79 77 Pulse Rate [Left] 93 H Respiratory Rate 14 18 18 Blood Pressure 148/77 H 147/72 H Blood Pressure [Right Arm] 160/74 H Blood Pressure Mean [Right Arm] 102 Blood Pressure Source Blood Pressure Source [Right Arm] Automatic Cuff Blood Pressure Position 02 Sat by Pulse Oximetry 96 98 99 Oxygen Delivery Method Room Air Room Air 03/11/25 15:02 Temperature 97.9 F Temperature Source Oral Pulse Rate 79 Pulse Rate [Left] Respiratory Rate 17 Blood Pressure 147/72 H Blood Pressure [Right Arm] Blood Pressure Mean [Right Arm] Blood Pressure Source Automatic Cuff Blood Pressure Source [Right Arm] Blood Pressure Position Sitting 02 Sat by Pulse Oximetry Oxygen Delivery Method Room Air Lab Data Lab Results 03/11/25 13:24: Urine Color Yellow, Urine Appearance Sl cloudy, Urine pH 7.5, Ur Specific [place] 1.015, Urine Protein Negative, Urine Glucose (UA) Negative, Urine Ketones Negative, Urine Blood Trace-i, Urine Nitrate Negative, Urine Bilirubin Negative, Urine Urobilinogen 0.2, Ur Leukocyte Esterase 1+ A, Urine RBC Occasional, Urine WBC 3-5, Ur Squamous Epith Cells Occasional, Urine Bacteria Trace 03/11/25 13:30: WBC 6.3, RBC 4.38, Hgb 12.7, Hct 38.2, MCV 87.2, MCH 29.0, MCHC 33.2, RDW 14.5, Plt Count 275, MPV 10.2, Neut % (Auto) 74.5, Lymph % (Auto) 16.4, [place] % (Auto) 7.4, Eos % (Auto) 0.9, Baso % (Auto) 0.6, Neut # (Auto) 4.7, Lymph # (Auto) 1.0, [place] # (Auto) 0.5, Eos # (Auto) 0.1, Baso # (Auto) 0.0, S odium 130 L, Potassium 3.3 L, Chloride 95 L, Carbon Dioxide 30, Anion Gap 8.3, B UN 19 H, Creatinine 0.70, Estimated Creat Clear 27, Estimated GFR 80, Est GFR ( Amer) 97, Glucose 116 H, Calcium 10.3 H, Magnesium 2.0, Total Bilirubin 0.6, AST 38 H D, ALT 19, Alkaline Phosphatase 52, Total Protein 7.3, Albumin 4.2, Globulin 3.1, Albumin/Globulin Ratio 1.4 Orders (Tests/Meds): ED MEDICATIONS Discontinued Medications Generic Name Dose Route Start Last Admin Trade Name Freq PRN Reason Stop Dose Admin Potassium Chloride 40 meq 03/11/25 14:25 03/11/25 14:38 Potassium Chloride 20meq Tab PO 03/11/25 14:26 40 meq ONCE ONE Administration ORDERS Category Date Time Status CBC w/Auto Diff [Complete Blood Count Auto Diff] Stat Lab 03/11/25 13:30 Completed CMP [Comprehensive Metabolic Panel] Stat Lab 03/11/25 13:30 Completed Magnesium Stat Lab 03/11/25 13:30 Completed UA [Urinalysis and Microscopic] Stat Lab 03/11/25 13:24 Completed Urine Culture Stat Micro 03/11/25 13:24 Received Medical Decision Narrative: In summary patient is a 84-year-old female who presents to the emergency department for evaluation of weakness of the head and eyes . Patient is hemodynamically stable upon arrival, febrile. His exam is unremarkable nonfocal including Rosanne Coma Score 15 cranial nerves II through XII intact grossly to exam patient is ambulatory in the emergency department has no focal neurologic deficits pupils equal round reactive to light breath sounds clear and equal bilaterally to the bases abdomen soft nontender no rebound no guarding or rigidity. Differential diagnosis includes electrolyte abnormality versus arrhythmia versus infection etc. Initial workup will be conducted with hematologic labs urinalysis. Initial interventions were considered however patient is asymptomatic currently thus deferred. Initial workup reviewed by me and patient has a sodium of 130 and a potassium of 3.3 the remainder of her hematologic labs are nonactionable.. Upon repeat evaluation I asked the patient about her loop recorder and patient had no idea on how to utilize the device. Patient had never had an event recorded by her input. Showed her how to utilize it prior to discharge. I repleted her potassium and asked her about her water intake and she has been drinking a significant amount of water daily that she feels she was instructed to do. I have advised her to decrease her water intake and follow-up with her PCP on Thursday for recheck of her labs and she was given strict return precautions. Patient verbalized understanding and agreement. I was consulted by the FREDRICK, and we discussed the complexity of problems being addressed. I approved the treatment and management plan for this patient's care in the emergency department, thus performing a substantial portion of the medical decision making. Ce Tran MD Critical Care <RACH Guzman - Last Filed: 03/11/25 15:03> Critical Care Time Critical Care Time: Yes Attestation: On 03/11/25, the high probability of a clinically significant, sudden or life threatening deterioration of the following system(s) required my full and direct attention, intervention and personal management. The time I documented below is in addition to time spent performing reported procedures but includes the following listed in this critical care notation. Total Time Total Critical Care Time: 30
--- OUTSIDE RECORDS SUMMARY | 2025-03-11 13:46 | XMS_ITS | Encounter Summary ---
Author Organization [place] [address] Care Team Providers Care Marketing Assistant Retail Division Name Role Phone German Landry MD Primary Care Provider [phone] Cintia Hogan MD Unavailable Unavailable Encounter Details Date Type Department Care Team (Late st Contact Info) Description 04/27/2018 Orders Only SEP Gastro [facility] [address] [address] Cintia Hogan MD Social History [...] AM EDT) 04/27/2018 7:[address] [facility] - 04/27/2018 7:42 AM EDT The examination was negative from a standpoint of screening. . Diverticulosis of the proximal ascending colon, distal descending colon and sigmoid colon. Internal hemorrhoids. Plan: Colonoscopy in 5 years due to previous history of polyps. This section is an excerpt of the full report. Cintia Hogan MD GI PROCEDURE ORDERABLES Final R esult Performing Organization Address City/State/[facility] Co de Phone Number [facility] [address] [place] [address] documented in this encounter Visit Diagnoses Not on filedocumented in this encounter Additional Health Concerns Infection Onset Date Last Indicated Resolved Time ESBL organism 09/10/2021 09/10/2021 Assessment Noted Time A fall risk assessment has been complete d for the patient 05/13/2017 3:26 PM EDT documented as of this encounter Care Teams Marketing Assistant Retail Division Relationship Specialty Start Date End Date German Landry MD [address] [place] [address] PCP - General Family Medicine 01/25/14 09/09/22 Cintia Hogan MD [address] [place] [address] Physician Internal Medicine-Gastroenterology 07/07/16 documented as of this encounter
--- OUTSIDE RECORDS SUMMARY | 2025-03-11 13:46 | XMS_ITS | Encounter Summary ---
Author Organization [place] [address] Care Team Providers Care Patient Educator Name Role Phone Mahendra Mireles Primary Care Provider [phone] German Landry MD Primary Care Provider [phone] Cintia Hogan MD Unavailable Unavailable Encounter Details Date Type Department Care Team (Late st Contact Info) Description 02/01/2013 Orders Only SEP Gastro [facility] [address] [facility] [address] [place] [address] Cintia Hogan MD Social History [...] EDT) 02/01/2013 10:3 0 AM EDT Impressions [facility] - 02/01/2013 11:58 AM EDT Polyp (15 mm) in the proximal descending colon. (Polypectomy). Internal hemorrhoids. Plan: Colonoscopy in 5 years. This section is an excerpt of the full report, which can be found by clicking the hyperlink. Cintia Hogan MD GI PROCEDURE ORDERABLES Final R esult [facility] [address] [place] [address] documented in this encounter Visit Diagnoses Not on filedocumented in this encounter Additional Health Concerns Infection Onset Date Last Indicated Resolved Time ESBL organism 09/10/2021 09/10/2021 documented as of this encounter Care Teams Patient Educator Relationship Specialty Start Date End Date Mahendra Mireles [address] [facility] [address] [place] [address] PCP - General 08/09/10 01/24/14 German Landry MD [address] [place] [address] PCP - General Family Medicine 01/25/14 09/09/22 Cintia Hogan MD [address] [place] [address] Physician Internal Medicine-Gastroenterology 07/07/16 documented as of this encounter
[2025-03-11 14:06] LABS: Basophils % 0.6 % (0.1-2.0); Eosinophils # 0.1 Kmm3 (0.0-0.4); Eosinophils % 0.9 % (0.1-12.0); Hematocrit 38.2 % (37.0-47.0); Hemoglobin 12.7 g/dL (12.2-16.2); Immature Granulocytes # 0.01 10^3uL; Immature Granulocytes % 0.2 %; Lymphocytes % 16.4 % (10-50); Mean Corpuscular HGB Conc 33.2 g/dL (31.8-35.4); Mean Corpuscular Volume 87.2 fl (81-99); Mean Platelet Volume 10.2 fl (7.4-10.4); Monocytes # 0.5 K/mm3 (0.1-1.0); Monocytes % 7.4 % (1.7-9.3); Neutrophils # 4.7 K/mm3 (1.8-7.8); Neutrophils % 74.5 % (37.0-80.0); Nucleated Red Blood Cells # 0 10^3/uL; Nucleated Red Blood Cells % 0 %; Platelet Count 275 K/mm3 (142-424); Red Blood Count 4.38 M/mm3 (4.20-5.40); Red Cell Distribution Width 14.5 % (11.5-17.5); White Blood Count 6.3 K/mm3 (4.8-10.8)
[2025-03-11 14:07] VITALS: BP 148/77; PULSE 79; RESP 18; O2SAT 98
[2025-03-11 14:12] LABS: Alanine Aminotransferase 19 U/L (12-78); Albumin Level 4.2 g/dl (3.5-5.0); Albumin/Globulin Ratio 1.4 (1.1-1.8); Alkaline Phosphatase 52 U/L (38-126); Anion Gap 8.3 mEq/L (5-15); Aspartate Amino Transferase 38 U/L (14-36); Bilirubin,Total 0.6 mg/dl (0.2-1.3); Blood Urea Nitrogen 19 mg/dl (7-17); Calcium 10.3 mg/dl (8.4-10.2); Carbon Dioxide 30 mmol/L (22.0-30.0); Chloride 95 mmol/L (98-107); Creatinine Clearance Estimated 27 mL/min (50-200); Estimated Glomerular Filt Rate 80 ml/min (>60); GFR (African American) 97 ML/MIN (>60); Globulin 3.1 g/dL (1.3-3.2); Glucose 116 mg/dl (74-100); Potassium 3.3 mmoL/L (3.5-5.1); Sodium 130 mmol/L (136-145); Total Protein,Serum 7.3 g/dl (6.3-8.2)
[2025-03-11 14:33] VITALS: BP 147/72; PULSE 77; RESP 18; O2SAT 99
[2025-03-11] MEDS: POTASSIUM CHLORIDE 20MEQ TAB 40 MEQ PO (14:38)
[2025-03-11 15:02] VITALS: BP 147/72; PULSE 79; RESP 17; TEMP 36.6; O2SAT 99
--- NOTE | 2025-03-14 10:27 | PC.NURSE ---
I discussed the pts prelim culture results with . No change to treatment plan at this time.
== END 2025-03-11 15:03 | disposition home or self-care (01) ==
PROVIDERS: Physician Assistant; Emergency Provider Student in an Organized Health Care Education/Training Program; PCP Nurse Practitioner
DX: E87.1 Hypo-osmolality and hyponatremia (principal); E87.6 Hypokalemia; R53.1 Weakness
CPT/HCPCS: 80053; 81001; 83735; 85025; 87086; 87088; 99283

== ENCOUNTER 2025-03-13 10:08 | Outpatient (CLI) | payer MEDICARE, SELFPAY ==
[2025-03-13 19:38] LABS: Alanine Aminotransferase 16 U/L (12-78); Albumin Level 3.6 g/dl (3.5-5.0); Albumin/Globulin Ratio 1.4 (1.1-1.8); Alkaline Phosphatase 51 U/L (38-126); Anion Gap 6.7 mEq/L (5-15); Aspartate Amino Transferase 25 U/L (14-36); Bilirubin,Total 0.6 mg/dl (0.2-1.3); Blood Urea Nitrogen 16 mg/dl (7-17); Calcium 9.9 mg/dl (8.4-10.2); Carbon Dioxide 28 mmol/L (22.0-30.0); Chloride 100 mmol/L (98-107); Estimated Glomerular Filt Rate 80 ml/min (>60); GFR (African American) 97 ML/MIN (>60); Globulin 2.5 g/dL (1.3-3.2); Glucose 90 mg/dl (74-100); Potassium 3.7 mmoL/L (3.5-5.1); Sodium 131 mmol/L (136-145); Total Protein,Serum 6.1 g/dl (6.3-8.2)
--- OUTSIDE RECORDS SUMMARY | 2025-03-14 10:36 | XMS_ITS | Clinical Summary ---
Author Organization [facility] Address [address] [place] [address] Phone Care Team Providers Care Feather Baler Name Role Phone Cintia Hogan MD Unavailable [...] patient to call me if not Improved. [id number] 08/21/15 14:30 EST 08/21/15 20:16 EST Diagnosis [...] status 01/25/14 Living will, counseling/discussion 01/25/14 declines [facility] vent support and skilled nursing nutrition via feeding tubes Insomnia Neck pain [...] Cordero RMA Medical Devices Implanted Type Area Project Leader Device Identifier Shelf Expiration Date Model / Serial / Lot Screw Cannulated Asnis Iii Ti 6.5 X 85mm Tl20mm - [id number] Implanted:Qty: 1 on 10/09/2015 by Tor Stuart MD at [facility] Right: Hip ABDOULAYE:ORTH[employer]I CS [id number] / / Screw Cannulated Asnis Iii Ti 6.5 X 80mm Tl20mm - [id number] Implanted:Qty: 2 on 10/09/2015 by Tor Stuart MD at [facility] Right: Hip ABDOULAYE:ORTHOP[employer]I CS [id number] / / Procedures Procedure Name Priority Date/Time [...] bone density assessment. Study was performed on Mural.ly 5. Bone Density: Region BMD T-score Z-score [...] Advance Directives For more information, please contact: [phone] Documents on File Type Date Recorded Patient Media Law Faculty Member Expl anation Advance Directives/DNR 10/13/2015 5:07 PM Advance Directives/DNR 10/08/2015 ADVANCE DIRECTIVE 10/08/2015 Advance Directives/DNR 05/09/2015 1:07 PM May 09 2015 17:[id number] GMT * Full Code (Latest Code Status on File) Date Activated Date Inactivated Comments 10/09/2015 7:51 PM 10/10/2015 9:59 PM Care Teams Feather Baler Relationship Specialty Start Date End Date Cintia Hogan MD Physician Internal Medicine-Gastroenterology 07/07/16
--- OUTSIDE RECORDS SUMMARY | 2025-03-14 10:36 | XMS_ITS | Encounter Summary ---
Author Organization [place] [address] Care Team Providers Care Textile Technical Officer Name Role Phone German Landry MD Primary Care Provider [phone] Cintia Hogan MD Unavailable Unavailable Encounter Details Date Type Department Care Team (Late st Contact Info) Description 08/21/2015 Orders Only SEP Gastro [facility] [address] [address] Cintia Hogan MD Social History [...] Procedure Name Priority Date/Time Associated Diagnosis Comments [facility] EGD Routine 08/21/2015 2:30 PM EST documented in this encounter Results * ED EGD (08/21/2015 2:30 PM EST) 08/21/2015 2:30 PM EST Impressions [facility] - 08/21/2015 3:13 PM EST No [...] MD GI PROCEDURE ORDERABLES Final R esult [facility] [address] [place] [address] documented in this encounter Visit Diagnoses Not on filedocumented in this encounter Additional Health Concerns Infection Onset Date Last Indicated Resolved Time ESBL organism 09/10/2021 09/10/2021 documented as of this encounter Care Teams Textile Technical Officer Relationship Specialty Start Date End Date German Landry MD [address] [place] [address] PCP - General Family Medicine 01/25/14 09/09/22 Cintia Hogan MD [address] [place] [address] Physician Internal Medicine-Gastroenterology 07/07/16 documented as of this encounter
--- OUTSIDE RECORDS SUMMARY | 2025-03-14 10:36 | XMS_ITS | Encounter Summary ---
Author Organization [place] [address] Care Team Providers Care Intel Analyst Name Role Phone German Landry MD Primary Care Provider [phone] Cintia Hogan MD Unavailable Unavailable Encounter Details Date Type Department Care Team (Late st Contact Info) Description 04/27/2018 Orders Only SEP Gastro [facility] [address] [address] Cintia Hogan MD Social History [...] AM EDT) 04/27/2018 7:30 AM EDT Impressions [facility] - 04/27/2018 7:42 AM EDT The examination was negative from a standpoint of screening. . Diverticulosis of the proximal ascending colon, distal descending colon and sigmoid colon. Internal hemorrhoids. Plan: Colonoscopy in 5 years due to previous history of polyps. This section is an excerpt of the full report. Cintia Hogan MD GI PROCEDURE ORDERABLES Final R esult Performing Organization Address City/State/[facility] Co de Phone Number [facility] [address] [place] [address] documented in this encounter Visit Diagnoses Not on filedocumented in this encounter Additional Health Concerns Infection Onset Date Last Indicated Resolved Time ESBL organism 09/10/2021 09/10/2021 Assessment Noted Time A fall risk assessment has been complete d for the patient 05/13/2017 3:26 PM EDT documented as of this encounter Care Teams Intel Analyst Relationship Specialty Start Date End Date German Landry MD [address] [place] [address] PCP - General Family Medicine 01/25/14 09/09/22 Cintia Hogan MD [address] [place] [address] Physician Internal Medicine-Gastroenterology 07/07/16 documented as of this encounter
--- OUTSIDE RECORDS SUMMARY | 2025-03-14 10:36 | XMS_ITS | Encounter Summary ---
Author Organization [place] [address] Care Team Providers Care Litigation Counsel Name Role Phone Mahendra Mireles Primary Care Provider [phone] German Landry MD Primary Care Provider [phone] Cintia Hogan MD Unavailable Unavailable Encounter Details Date Type Department Care Team (Late st Contact Info) Description 02/01/2013 Orders Only SEP Gastro [facility] [address] [facility] [address] [place] [address] Cintia Hogan MD Social History [...] EDT) 02/01/2013 10:3 0 AM EDT Impressions [facility] - 02/01/2013 11:58 AM EDT Polyp (15 mm) in the proximal descending colon. (Polypectomy). Internal hemorrhoids. Plan: Colonoscopy in 5 years. This section is an excerpt of the full report, which can be found by clicking the hyperlink. Cintia oHgan MD GI PROCEDURE ORDERABLES Final R esult [facility] [address] [place] [address] documented in this encounter Visit Diagnoses Not on filedocumented in this encounter Additional Health Concerns Infection Onset Date Last Indicated Resolved Time ESBL organism 09/10/2021 09/10/2021 documented as of this encounter Care Teams Litigation Counsel Relationship Specialty Start Date End Date Mahendra Mireles [address] [facility] [address] [place] [address] PCP - General 08/09/10 01/24/14 German Landry MD [address] [place] [address] PCP - General Family Medicine 01/25/14 09/09/22 Cintia Hogan MD [address] [place] [address] Physician Internal Medicine-Gastroenterology 07/07/16 documented as of this encounter
== END 2025-03-13 23:59 | disposition home or self-care (01) ==
LOC: LAB.DROPOF 03-14 10:22
PROVIDERS: PCP Nurse Practitioner; Visit Provider Nurse Practitioner
DX: E87.1 Hypo-osmolality and hyponatremia (principal); E87.6 Hypokalemia
CPT/HCPCS: 80053

== ENCOUNTER 2025-03-17 12:50 | Emergency (ER) | payer MEDICARE, SELFPAY ==
[2025-03-17 12:59] VITALS: BP 167/74; PULSE 82; RESP 15; TEMP 36.9; O2SAT 97; BMI 17.9
--- OUTSIDE RECORDS SUMMARY | 2025-03-17 12:59 | XMS_ITS | Encounter Summary ---
Author Organization [place] [address] Care Team Providers Care Bench Worker Helper Name Role Phone German Landry MD Primary Care Provider [phone] Cintia Hogan MD Unavailable Unavailable Encounter Details Date Type Department Care Team (Late st Contact Info) Description 08/21/2015 Orders Only SEP Gastro [facility] [address] [place] [address] [address] Cintia Hogan MD Social History [...] Procedure Name Priority Date/Time Associated Diagnosis Comments [facility] EGD Routine 08/21/2015 2:30 PM EST documented in this encounter Results * ED EGD (08/21/2015 2:30 PM EST) 08/21/2015 2:30 PM EST Impressions [facility] - 08/21/2015 3:13 [...] MD GI PROCEDURE ORDERABLES Final R esult [facility] [address] [place] [address] documented in this encounter Visit Diagnoses Not on filedocumented in this encounter Additional Health Concerns Infection Onset Date Last Indicated Resolved Time ESBL organism 09/10/2021 09/10/2021 documented as of this encounter Care Teams Bench Worker Helper Relationship Specialty Start Date End Date German Landry MD [address] [place] [address] PCP - General Family Medicine 01/25/14 09/09/22 Cintia Hogan MD [address] [place] [address] Physician Internal Medicine-Gastroenterology 07/07/16 documented as of this encounter
[2025-03-17 13:00] VITALS: BP 142/73; PULSE 75; RESP 18; O2SAT 97
--- OUTSIDE RECORDS SUMMARY | 2025-03-17 13:00 | XMS_ITS | Encounter Summary ---
Author Organization [place] [address] Care Team Providers Care Roving Hauler Name Role Phone German Landry MD Primary Care Provider [phone] Cintia Hogan MD Unavailable Unavailable Encounter Details Date Type Department Care Team (Late st Contact Info) Description 04/27/2018 Orders Only SEP Gastro [facility] [address] [address] Cintia Hogan MD Social History [...] AM EDT) 04/27/2018 7:30 AM EDT Impressions [facility] - 04/27/2018 7:42 AM EDT The examination was negative from a standpoint of screening. . Diverticulosis of the proximal ascending colon, distal descending colon and sigmoid colon. Internal hemorrhoids. Plan: Colonoscopy in 5 years due to previous history of polyps. This section is an excerpt of the full report. Cintia Hogan MD GI PROCEDURE ORDERABLES Final R esult Performing Organization Address City/State/[facility] Co de Phone Number [facility] [address] [place] [address] documented in this encounter Visit Diagnoses Not on filedocumented in this encounter Additional Health Concerns Infection Onset Date Last Indicated Resolved Time ESBL organism 09/10/2021 09/10/2021 Assessment Noted Time A fall risk assessment has been complete d for the patient 05/13/2017 3:26 PM EDT documented as of this encounter Care Teams Roving Hauler Relationship Specialty Start Date End Date German Landry MD [address] [place] [address] PCP - General Family Medicine 01/25/14 09/09/22 Cintia Hogan MD [address] [place] [address] Physician Internal Medicine-Gastroenterology 07/07/16 documented as of this encounter
--- OUTSIDE RECORDS SUMMARY | 2025-03-17 13:00 | XMS_ITS | Clinical Summary ---
Author Organization [facility] Address [address] [facility] [place] [address] Phone Care Team Providers Care Drug Abuse Treatment Specialist Name Role Phone Cintia Hogan MD [...] patient to call me if not Improved. [id number] 08/21/15 14:30 EST 08/21/15 20:16 EST Diagnosis [...] status 01/25/14 Living will, counseling/discussion 01/25/14 declines long-term vent support and alf nutrition via feeding tubes Insomnia Neck pain [...] Cordero RMA Medical Devices Implanted Type Area Poke In Device Identifier Shelf Expiration Date Model / Serial / Lot Screw Cannulated Asnis Iii Ti 6.5 X 85mm Tl20mm - [id number] Implanted:Qty: 1 on 10/09/2015 by Tor Stuart MD at [facility] Right: Hip ABDOULAYE:ORTH[employer] CS [id number] / / Screw Cannulated Asnis Iii Ti 6.5 X 80mm Tl20mm - [id number] Implanted:Qty: 2 on 10/09/2015 by Tor Stuart MD at [facility] Right: Hip ABDOULAYE:ORTH[employer]I CS [id number] / / Procedures Procedure Name Priority Date/Time [...] bone density assessment. Study was performed on [employer] 5. Bone Density: Region BMD T-score Z-score [...] Advance Directives For more information, please contact: [phone] Documents on File Type Date Recorded Patient Emergency Veterinary Technician Expl anation Advance Directives/DNR 10/13/2015 5:07 PM Advance Directives/DNR 10/08/2015 ADVANCE DIRECTIVE 10/08/2015 Advance Directives/DNR 05/09/2015 1:07 PM May 09 2015 17:[id number] GMT * Full Code (Latest Code Status on File) Date Activated Date Inactivated Comments 10/09/2015 7:51 PM 10/10/2015 9:59 PM Care Teams Drug Abuse Treatment Specialist Relationship Specialty Start Date End Date Cintia Hogan MD Physician Internal Medicine-Gastroenterology 07/07/16
--- OUTSIDE RECORDS SUMMARY | 2025-03-17 13:00 | XMS_ITS | Encounter Summary ---
Author Organization [place] [address] Care Team Providers Care Side Seam Envelope Machine Operator Name Role Phone Mahendra Mireles Primary Care Provider [phone] German Landry MD Primary Care Provider [phone] Cintia Hogan MD Unavailable Unavailable Encounter Details Date Type Department Care Team (Late st Contact Info) Description 02/01/2013 Orders Only SEP Gastro [facility] [address] [facility] [address] [place] [address] Cintia Hogan MD Social History [...] [facility] [address] [place] [address] documented in this encounter Visit Diagnoses Not on filedocumented in this encounter Additional Health Concerns Infection Onset Date Last Indicated Resolved Time ESBL organism 09/10/2021 09/10/2021 documented as of this encounter Care Teams Side Seam Envelope Machine Operator Relationship Specialty Start Date End Date Mahendra Mireles [address] [facility] [address] [place] [address] PCP - General 08/09/10 01/24/14 German Landry MD [address] [place] [address] PCP - General Family Medicine 01/25/14 09/09/22 Cintia Hogan MD [address] [place] [address] Physician Internal Medicine-Gastroenterology 07/07/16 documented as of this encounter
--- NOTE | 2025-03-17 13:03 | XR_ITS ---
FINAL REPORT CLINICAL HISTORY: weakness COMPARISON: 02/17/2025 FINDINGS: A portable view of the chest was obtained. The heart is borderline in size. The mediastinal silhouette is within normal limits. There is evidence of prior granulomatous disease. The lungs are otherwise clear. There is no pleural effusion or pneumothorax. IMPRESSION: No acute process on this portable exam. Reviewed, Interpreted and Dictated by Lakeisha Taylor MD Transcribed by Anca Watters Authenticated and . [facility]
--- NOTE | 2025-03-17 13:03 | CT_ITS ---
FINAL REPORT TECHNIQUE: Thin section axial images are obtained through the brain after intravenous contrast injection. Multiplanar reconstructions were obtained from the axial data. Exam was performed using dose reduction techniques such as automated exposure control, adjustment of the mA and kV according to patient size, and use of iterative reconstruction technique. CLINICAL HISTORY: possible stroke COMPARISON: 12/31/2023 FINDINGS: The intracerebral portions of the carotid arteries are patent. The anterior and middle cerebral arteries are patent. The posterior cerebral arteries arise from the basilar artery. They are patent. [place] is intact. The basilar artery is patent. The vertebral arteries are patent. There is no significant stenosis, aneurysm, or AVM. IMPRESSION: Unremarkable CT angiogram of the intracerebral vasculature. No evidence of large vessel occlusion or significant stenosis. Authenticated and ERN
--- NOTE | 2025-03-17 13:03 | CT_ITS ---
FINAL REPORT TECHNIQUE: Thin section axial images were obtained from the aortic arch through the skull base after intravenous injection of contrast per CT angiogram protocol. Multiplanar reconstruction images were obtained from the axial data. Exam was performed using dose reduction technique. CLINICAL HISTORY: possible stroke COMPARISON: 12/31/2023 FINDINGS: There is a normal three-vessel configuration to the aortic arch. The great vessels are patent without stenosis. Right carotid: The right common carotid artery is patent without stenosis. The right internal carotid artery is patent without stenosis to the level of the skull base. It is tortuous. 0% stenosis per NASCET criteria. Left carotid: The left common carotid artery is patent. The left internal carotid artery is patent without stenosis. 0% stenosis per NASCET criteria. Vertebral arteries: The bilateral vertebral arteries are patent without stenosis or occlusion. The right vertebral artery is again noted to be small. IMPRESSION: No carotid stenosis. No change from prior exam. Patent vertebral arteries. Authenticated and ERN
--- NOTE | 2025-03-17 13:03 | CT_ITS ---
FINAL REPORT TECHNIQUE: Thin section axial images were obtained from skull base to vertex without contrast. Coronal reconstruction images were obtained from the axial data. Exam was performed using dose reduction techniques such as automated exposure control, adjustment of the mA and kV according to patient size, and use of iterative reconstruction technique. CLINICAL HISTORY: possible stroke COMPARISON: 12/31/2023 FINDINGS: There is no mass effect or midline shift. There is global atrophy. There is associated periventricular hypodensity which is unchanged from the prior exam. Findings are most suggestive of chronic small vessel ischemia. No intracranial hemorrhage or hydrocephalus. The posterior fossa is without acute abnormality. The basilar cisterns are preserved. The soft tissues are without acute abnormality. No acute osseous abnormality is identified. IMPRESSION: No intracranial hemorrhage or evidence of acute large cortical infarct. Atrophy and chronic findings. Authenticated and ERN
--- NOTE | 2025-03-17 13:04 | ED_ITS ---
<Statement entered by Haydee Martinez MD - 03/17/25 15:06> I was consulted by the FREDRICK, and we discussed the complexity of problems being addressed. I approved the treatment and management plan for this patient's care in the emergency department, thus performing a substantive portion of the medical decision making. Haydee Martinez MD Discharge Plan Disposition Patient Disposition: Home, Self-Care Condition: Good Prescriptions Prescriptions: No Action alendronate 70 mg tablet 70 mg PO WEEKLY Qty: 14 10RF losartan-hydrochlorothiazide 50-12.5 mg tablet 1 tab PO DAILY Qty: 90 0RF estradiol 0.01 % (0.1 mg/gram) cream See Rx Instructions vaginal .COMPLEX Qty: 42.5 2RF Rx Instructions: Using finger technique daily for two weeks and then twice weekly vaginally; Centrum Silver Women 8 mg iron-400 mcg-50 mcg tablet 1 tab PO DAILY clopidogrel [Plavix] 75 mg tablet 75 mg PO DAILY Qty: 30 11RF metoprolol succinate [Toprol XL] 25 mg tablet extended release 24 hr 25 mg PO DAILY Qty: 90 3RF memantine 10 mg tablet 10 mg PO BID Qty: 180 3RF lorazepam 0.5 mg tablet See Rx Instructions .ROUTE .COMPLEX PRN (Reason: anxiety) Qty: 90 2RF Rx Instructions: tid prn anxiety atorvastatin 40 mg tablet 40 mg PO HS 30 Days Qty: 90 3RF aspirin 81 mg Tablet,Delayed Release (Dr/Ec) 81 mg PO DAILY 30 Days Qty: 30 0RF polyethylene glycol 3350 [Miralax] 17 gram/dose powder 17 g PO BID Qty: 1020 0RF Referrals Follow up/Referrals: Sarah Dumont APRN [Primary Care Provider, Family Practice] - See instructions Activity Restrictions/Add. Instructions Additional Instructions/Restrictions: Today you were evaluated in the emergency department. Your workup was overall unremarkable for anything acute. Please follow-up with PCP and neurologist. Please return to the ED for any worsening of your condition. Clinical Impressions Clinical Impression: Generalized weakness, Dizziness Instructions Patient Instructions: DI for Dizziness-Nonvertigo Print Language Print Language: Citizen Of [place] Discharge ED Provider: Haydee Martinez General Adult HPI General Chief complaint: Weakness Stated complaint: weakness Time Seen by Provider: 03/17/25 12:52 Mode of Arrival: Ambulatory Source of Information: Patient Description of Symptoms (Recalled from ER Triage Doc. by RN): patient states she has been feeling weak for a long time. she reports her eyes feel tired. she has been to pcp and here several times and everything checks out okay History of Present Illness HPI narrative: patient is an 84-year-old female PMHx HTN, HLD, CVA, MCI, cardiac stents, CAD, hypokalemia, vitamin deficiency who presents to the ED with complaints of 3 to 4 months of generalized weakness & dizziness. Patient states this is her third ED visit and has seen PCP multiple times without diagnosis. Related Data Home Medications ?Medication ?Instructions ?Recorded ?Confirmed [id number] 8 mg-folic 400 1 tab PO DAILY 06/2003/13/25 mcg-K 50 mcg-lutein 300 mcg tablet (Centrum Silver Women) Previous Rx's ?Medication ?Instructions ?Recorded aspirin 81 mg tablet,delayed 81 mg PO DAILY 30 days #3 0 tabs 01/01/24 release estradiol 0.01% (0.1 mg/gram) See Rx Instructions vagi nal 05/09/24 vaginal cream .COMPLEX #42.5 grams alendronate 70 mg tablet 70 mg PO WEEKLY #14 tabs 03/21 metoprolol succinate 25 mg 25 mg PO DAILY #90 tabs tablet,extended release 24 hr (Toprol XL) clopidogrel 75 mg tablet (Plavix) 75 mg PO DAILY #30 t abs 10/13/24 polyethylene glycol 3350 17 17 g PO BID #1,020 grams 0 01/03/25 gram/dose oral powder (Miralax) lorazepam 0.5 mg tablet See Rx Instructions .Route 0 02/06/25 .COMPLEX PRN anxiety #90 tabs memantine 10 mg tablet 10 mg PO BID #180 tabs 02/07 atorvastatin 40 mg tablet 40 mg PO HS 30 days #90 tabs 03/13/25 losartan 50 mg-hydrochlorothiazide 1 tab PO DAILY #90 tabs 03/13/25 12.5 mg tablet Allergies Allergy/AdvReac Type Severity Reaction Status Date / Time acetaminophen (From Allergy Mild Rash Verified 03/13/25 09:27 Tylenol-Codeine #3) ciprofloxacin (From Cipro) Allergy Mild Rash Verified 03/13/25 09:27 codeine (From Allergy Mild Rash Verified 03/13/25 09:27 Tylenol-Codeine #3) cyclobenzaprine (From Allergy Mild Rash Verified 03/13/25 09:27 Flexeril) doxycycline Allergy Mild Rash Verified 03/13/25 09:27 erythromycin base Allergy Mild Rash Verified 03/13/25 09:27 hydrocodone Allergy Mild Rash Verified 03/13/25 09:27 loratadine (From Claritin) Allergy Mild Rash Verified 03/13/25 09:27 oxycodone (From Roxicet) Allergy Mild Rash Verified 03/13/25 09:27 [facility] Disclaimer: The information contained in this section may have been updated after the patient was seen, as this information can be updated by other users. Medical History Vitamin B12 deficiency Freedom of toe Freedom of foot Bilateral hip pain Bilateral low back pain Chest pain Right to left cardiac shunt Fatigue Abnormal echocardiogram Abnormal Holter monitor finding Cryptogenic stroke Cataract Dementia CVA (cerebral vascular accident) Most likely cardioembolic in nature. Evidence of bihemispheric strokes in the past including posterior circulation CVA, (clinically silent). Hypokalemia Cellulitis of right pinna Bladder prolapse, female, acquired Dysuria IFG (impaired fasting glucose) Memory changes Recurrent UTI Allergic rhinitis Insomnia Anxiety Osteoporosis GERD (gastroesophageal reflux disease) Essential hypertension Hyperlipidemia Broken hip Surgical History History of loop recorder History of cardiac cath History of repair of left hip joint History of hysterectomy Family History Son Cancer Social History (Updated 03/13/25 @ 09:24 by Connie Paulino MA) Smoking Status: Never smoker alcohol intake: never substance use type: denies use current occupational status: retired Travel in the last 8 weeks?: None household members: spouse housing: house lives independently: Yes marital status: number of children: 4 number of grandchildren: 6 Have you lived/traveled outside [place] in past 30 days?: No Contact w/someone who lives/traveled outside US past 30 days?: No Exposure to someone with infectious disease in past 14 days?: No Do you have a fever (greater than 100.4 F or 38 C)?: No Have you tested positive for COVID-19?: No Exposed to someone with COVID-19 in past 14 days?: No Do you have a sore throat?: No Do you have a cough?: No Do you have any weakness?: Yes Do you have any diarrhea?: No Are you experiencing any unusual bleeding?: No Do you have any muscle aches/pain?: No Do you have any abdominal pain?: No Are you experiencing loss of taste or smell?: No Other Medical History Have you received the Flu Vaccine for this season: Yes Have you received the Pneumonia Vaccine: Yes ROS Obtained: Yes Systems reviewed as appropriate & no additional complaints except as documented Physical Exam General General appearance: alert and in no apparent distress Head Head exam: atraumatic and normocephalic Eye Eye exam: Present normal appearance, PERRL and EOMI; Absent nystagmus ENT ENT exam: Present normal exam Neck Neck exam: Present normal inspection, full ROM and trachea midline Chest Chest inspection: Present normal inspection and symmetric chest wall rise; Absent tenderness Respiratory Respiratory exam: Present normal lung sounds bilaterally; Absent respiratory distress Cardiovascular Cardiovascular exam: Present regular rate Abdominal Exam Abdominal exam: Present soft and normal bowel sounds; Absent tenderness Extremities Exam Extremities exam: Present normal inspection, full ROM and normal capillary refill; Absent tenderness or calf tenderness Back Exam Back exam: Present normal inspection and full ROM Neurological Exam Neurological exam: Present alert and oriented X3; Absent motor sensory deficit Psychiatric Psychiatric exam: Present normal affect and normal mood Skin Skin exam: Present warm and dry Medical Decision Making Medical Records Screening: Per USPSTF and CDC recommendations, given the prevalence of disease in our region, it is our hospital?s policy to screen for HIV and viral Hepatitis for all patients aged 18 and over and those with ongoing risk factors. Gavin Inquiry Pt receiving controlled substance: No Vital Signs: 03/17/25 12:59 03/17/25 13:00 03/17/25 13:53 Temperature 98.5 F Temperature Source Oral Pulse Rate 75 75 Pulse Rate [Right Radial] 82 Respiratory Rate 15 18 18 Blood Pressure 142/73 H 180/76 H Blood Pressure [Right Arm] 167/74 H Blood Pressure Mean 96 136 Blood Pressure Mean [Right Arm] 105 Blood Pressure Source Blood Pressure Source [Right Arm] Automatic Cuff Blood Pressure Position Blood Pressure Position [Right Arm] Supine 02 Sat by Pulse Oximetry 97 97 99 Oxygen Delivery Method Room Air 03/17/25 14:36 Temperature 98.8 F Temperature Source Oral Pulse Rate 74 Pulse Rate [Right Radial] Respiratory Rate 18 Blood Pressure 151/90 H Blood Pressure [Right Arm] Blood Pressure Mean Blood Pressure Mean [Right Arm] Blood Pressure Source Automatic Cuff Blood Pressure Source [Right Arm] Blood Pressure Position Sitting Blood Pressure Position [Right Arm] 02 Sat by Pulse Oximetry Oxygen Delivery Method Room Air Lab Data Lab Results 03/17/25 13:19: WBC 5.3, RBC 4.10 L, Hgb 11.8 L, Hct 35.9 L, MCV 87.6, MCH 28.8, MCHC 32.9, RDW 14.5, Plt Count 264, MPV 10.1, Neut % (Auto) 70.5, Lymph % (Auto) 18.4, Creek % (Auto) 8.6, Eos % (Auto) 1.3, Baso % (Auto) 1.0, Neut # (Auto) 3.7, Lymph # (Auto) 1.0, Creek # (Auto) 0.5, Eos # (Auto) 0.1, Baso # (Auto) 0.1, PT 10.8, INR 0.97, APTT 21.9 L, Sodium 134 L, Potassium 3.7, Chloride 102, Carbon Dioxide 28, Anion Gap 7.7, BUN 17, Creatinine 0.70, Estimated Creat Clear 30, Estimated GFR 80, Est GFR ( Amer) 97, Glucose 97, Calcium 9.5, Total Bilirubin 0.4, AST 36, ALT 20, Alkaline Phosphatase 47, Troponin I < 0.01, Total Protein 6.7, Albumin 4.0, Globulin 2.7, Albumin/Globulin Ratio 1.5, Triglycerides 91, Cholesterol 138 L, LDL Cholesterol Direct 42.31 L, VLDL Cholesterol 18, HDL Cholesterol 63 H, Cholesterol/HDL Ratio 2.2, Plasma/Serum Alcohol < 10, HIV Ag/Ab Combo Qual Negative 03/17/25 13:38: Urine Color Yellow, Urine Appearance Clear, Urine pH 7.5, Ur Specific Rousseau 1.010, Urine Protein Negative, Urine Glucose (UA) Negative, Urine Ketones Negative, Urine Blood Trace-l, Urine Nitrate Negative, Urine Bilirubin Negative, Urine Urobilinogen 0.2, Ur Leukocyte Esterase Negative, Urine Opiates Screen Negative, Urine Methadone Screen Negative, Ur Barbituates Screen Negative, Ur Phencyclidine Scrn Negative, Ur Amphetamines Screen Negative, U Benzodiazepines Scrn Negative, Urine Cocaine Screen Negative, U Marijuana (THC) Screen Negative 03/17/25 13:19 03/17/25 13:19 Orders (Tests/Meds): ED MEDICATIONS Discontinued Medications Generic Name Dose Route Start Last Admin Trade Name Daniel PRN Reason Stop Dose Admin Iopamidol 80 ml 03/17/25 13:31 03/17/25 13:38 Iopamidol-370 (76%);100ml Bottle IV 03/17/25 13:32 80 ml ONCE ONE Administration Sodium Chloride 10 ml 03/17/25 13:03 Sodium Chloride 0.9% 10ml Flush Syringe IV 04/16/25 13:02 NEEDED PRN Maintain IV Site Sodium Chloride 50 ml 03/17/25 13:31 03/17/25 13:38 0.9 % Sodium Chloride 50 Ml Vial IV 03/17/25 13:32 50 ml ONCE ONE Administration Sodium Chloride 10 ml 03/17/25 13:31 03/17/25 13:38 Sodium Chloride 0.9% 10ml Syr (Rad Only) IV 03/17/25 13:32 10 ml ONCE ONE Administration ORDERS Category Date Time Status CT angio head Stat Cat Scan 03/17/25 13:[address] angio neck Stat Cat Scan 03/17/25 13:[address] head/brain wo con Stat Cat Scan 03/17/25 13:03 Completed XR chest portable Stat Exams 03/17/25 13:03 Completed Activated Partial Thrombo Time Stat Lab 03/17/25 13:19 Completed CBC w/Auto Diff [Complete Blood Count Auto Diff] Stat Lab 03/17/25 13:19 Completed CMP [Comprehensive Metabolic Panel] Stat Lab 03/17/25 13:19 Completed Drug Screen,Urine Stat Lab 03/17/25 13:38 Completed Ethyl Alcohol Stat Lab 03/17/25 13:19 Completed HIV Combo Stat Lab 03/17/25 13:19 Completed Hepatitis C Ab Qual. W/ RFX Stat Lab 03/17/25 13:19 Received Lipid Panel Stat Lab 03/17/25 13:19 Completed Prothrombin Time INR Stat Lab 03/17/25 13:19 Completed Troponin I Stat Lab 03/17/25 13:19 Completed Urinalysis and Microscopic Stat Lab 03/17/25 13:38 Results ECG Request Stat Y 03/17/25 13:03 Ordered Medical Decision Narrative: In summary, patient is an 84-year-old female PMHx HTN, HLD, CVA, MCI, cardiac stents, CAD, hypokalemia, vitamin deficiency who presents to the ED with complaints of 3 to 4 months of generalized weakness & dizziness. Patient states this is her third ED visit and has seen PCP multiple times without diagnosis. She states that several months ago the weakness and dizziness were intermittent however over the past several weeks have become constant. Patient states that her head and eyes feel weak , patient is unable to elaborate on the sensation. She denies any deficits from her previous CVA, denies any current one-sided weakness. Denies any visual disturbances. Denies having a headache or any pain. Denies fever, chills, body aches, visual disturbances, posterior neck pain, chest pain, shortness of breath, abdominal pain, back pain, nausea, vomiting, dysuria. Upon initial exam patient is alert, oriented and cooperative. She is stable, elevated blood pressure noted. 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 Differential diagnosis include CVA, ICH, mass, aneurysm, infectious process, dementia progression, among others. Records reviewed: ED visit on 02/17/2025 noted that patient presented for generalized weakness at that time. She was noted to have no significant findings on CBC, mildly elevated BUN, negative troponin. Negative chest x-ray at that time. ED visit on 03/11/2025 noted that patient presented for weakness of her head and eyes, noted to have a fairly unremarkable workup at that time. PCP office visit on 03/13/2025 advised the patient was encouraged to continue with her normal daily water intake and increase her dietary sources of sodium and potassium. Urinalysis unremarkable. CBC unremarkable for any leukocytosis, stable H&H. CMP unremarkable for any actionable abnormalities, troponin < 0.01. Formal read of the chest x-ray as no acute process. Final read of the head CT no intracranial hemorrhage or evidence of acute large cortical infarct. Atrophy and chronic findings noted. Final read of the head CTA unremarkable intracerebral vasculature no evidence of large vessel occlusion or significant stenosis. No aneurysm or AVM. Neck CTA unremarkable for carotid stenosis no change from prior exam patent vertebral arteries. Discussed with patient and family members that workup today in the ED is unremarkable. I advised her that she will need to follow-up with her PCP and schedule follow-up appointment with neurology for further evaluation of dementia progression. We discussed strict return precautions to the ED and patient family verbalized understanding. Patient will be discharged in the care of the family today. She remained hemodynamically stable and ambulatory without difficulty in the ED. Critical Care Critical Care Time Critical Care Time: No
--- NOTE | 2025-03-17 13:09 | HMH.ITSTN ---
WENT TO GET PATIENT FOR CT, NURSE STATED PATIENT DOESNT HAVE IV, WILL CALL WHEN READY.
[2025-03-17 13:27] LABS: Basophils # 0.1 K/mm3 (0-0.2); Eosinophils # 0.1 Kmm3 (0.0-0.4); Eosinophils % 1.3 % (0.1-12.0); Hematocrit 35.9 % (37.0-47.0); Hemoglobin 11.8 g/dL (12.2-16.2); Immature Granulocytes # 0.01 10^3uL; Immature Granulocytes % 0.2 %; Lymphocytes % 18.4 % (10-50); Mean Corpuscular HGB Conc 32.9 g/dL (31.8-35.4); Mean Corpuscular Hemoglobin 28.8 pg (27.0-31.2); Mean Corpuscular Volume 87.6 fl (81-99); Mean Platelet Volume 10.1 fl (7.4-10.4); Monocytes # 0.5 K/mm3 (0.1-1.0); Monocytes % 8.6 % (1.7-9.3); Neutrophils # 3.7 K/mm3 (1.8-7.8); Neutrophils % 70.5 % (37.0-80.0); Nucleated Red Blood Cells # 0 10^3/uL; Nucleated Red Blood Cells % 0 %; Platelet Count 264 K/mm3 (142-424); Red Cell Distribution Width 14.5 % (11.5-17.5); Red Cell Distribution Width-SD 46.1 fL; White Blood Count 5.3 K/mm3 (4.8-10.8)
[2025-03-17 13:36] LABS: Chloride 102 mmol/L (98-107); Potassium 3.7 mmoL/L (3.5-5.1); Sodium 134 mmol/L (136-145)
[2025-03-17 13:38] LABS: Alanine Aminotransferase 20 U/L (12-78); Albumin/Globulin Ratio 1.5 (1.1-1.8); Alkaline Phosphatase 47 U/L (38-126); Anion Gap 7.7 mEq/L (5-15); Aspartate Amino Transferase 36 U/L (14-36); Bilirubin,Total 0.4 mg/dl (0.2-1.3); Blood Urea Nitrogen 17 mg/dl (7-17); Carbon Dioxide 28 mmol/L (22.0-30.0); Creatinine Clearance Estimated 30 mL/min (50-200); Estimated Glomerular Filt Rate 80 ml/min (>60); GFR (African American) 97 ML/MIN (>60); Globulin 2.7 g/dL (1.3-3.2); Total Protein,Serum 6.7 g/dl (6.3-8.2)
[2025-03-17] MEDS: SODIUM CHLORIDE 0.9% 10ML SYR (RAD ONLY) 10 ML IV (13:38)
[2025-03-17] MEDS: IOPAMIDOL-370 (76%);100ML BOTTLE 80 ML IV (13:38)
[2025-03-17] MEDS: 0.9 % SODIUM CHLORIDE 50 ML VIAL IV (13:38)
[2025-03-17 13:39] LABS: Calcium 9.5 mg/dl (8.4-10.2); Chol/HDL Ratio 2.2 (1-3.5); Cholesterol 138 mg/dl (140-200); Glucose 97 mg/dl (74-100); HDL Cholesterol 63 mg/dl (40-60); Triglycerides 91 mg/dl (30-150); VLDL Cholesterol 18 mg/dL (0-40)
[2025-03-17 13:50] LABS: Direct LDL Cholesterol 42.31 mg/dL (100-129)
[2025-03-17 13:53] VITALS: BP 180/76; PULSE 75; RESP 18; O2SAT 99
--- NOTE | 2025-03-17 13:54 | ECG_ITS ---
APPROVED REPORT Exam: Resting ECG HR:75 bpm ECG Measurements Heart Rate 75 AXES DE 186 P 87 QRSd 84 QRS 14 QT 378 T 118 QTc 406 Conclusion SINUS RHYTHM LOW QRS VOLTAGE [QRS DEFLECTION < 0.5/1.0 mV IN LIMB/CHEST LEADS] POSSIBLE ANTERIOR MYOCARDIAL INFARCTION , PROBABLY OLD [30 ms Q WAVE IN V3/V4, OR R < 0.2 mV IN V4] ABNORMAL ECG UNCONFIRMED REPORT Electronically signed by : Haydee Martinez, 03/17/2025 15:40:13
[2025-03-17 13:55] LABS: Microscopic, Urine URINE MICROSCOPIC (MICROSCOPIC)
[2025-03-17 13:59] LABS: Appearance,Urine CLEAR (Clear); Bilirubin,Urine Negative (Negative); Blood, Urine TRACE-L (Negative); Color,Urine YELLOW (Yellow); Glucose,Urine (UA) Negative (Negative); Ketones,Urine Negative (Negative); Leukocyte Esterase,Urine Negative (Negative); Nitrate,Urine Negative (Negative); PH,Urine 7.5 (5.0-8.5); Protein,Urine Negative (Negative); Urobilinogen,Urine 0.2 EU/dl (0.2)
[2025-03-17 13:59] LABS: Troponin I < 0.01 ng/ml (0.00-0.034)
[2025-03-17 14:13] LABS: Barbiturates Screen,Urine Negative ng/ml (<200)
[2025-03-17 14:14] LABS: Amphetamine/Metha Screen,Urine Negative ng/ml (<1000); Benzodiazepines Screen,Urine Negative ng/ml (<200)
[2025-03-17 14:15] LABS: Cannabinoid Screen,Urine Negative ng/ml (<50)
[2025-03-17 14:16] LABS: Cocaine Screen,Urine Negative ng/ml (<300); Methadone Screen,Urine Negative ng/ml (<300)
[2025-03-17 14:18] LABS: Opiate Screen,Urine Negative ng/ml (<300)
[2025-03-17 14:19] LABS: Phencyclidine Screen,Urine Negative ng/ml (<25)
[2025-03-17 14:22] LABS: Ethyl Alcohol < 10 mg/dl (0-10)
[2025-03-17 14:34] LABS: Activated Partial Thrombo Time 21.9 seconds (22.8-30.6); INR 0.97 (0.9-1.1); Prothrombin Time 10.8 seconds (10.1-12.5)
[2025-03-17 14:36] VITALS: BP 151/90; PULSE 74; RESP 18; TEMP 37.1; O2SAT 97
[2025-03-17 14:41] LABS: HIV Combo NEGATIVE (Negative)
[2025-03-17 14:48] LABS: Hepatitis C Ab Qual. W/ RFX NEGATIVE (Negative)
[2025-03-17 14:57] LABS: Amorphous Sediment,Urine Trace /lpf; Bacteria,Urine Trace /lpf
== END 2025-03-17 14:39 | disposition home or self-care (01) ==
PROVIDERS: Nurse Practitioner; Emergency Provider Student in an Organized Health Care Education/Training Program; PCP Nurse Practitioner
DX: R53.1 Weakness (principal); R42 Dizziness and giddiness; E87.6 Hypokalemia; E87.1 Hypo-osmolality and hyponatremia; K21.9 Gastro-esophageal reflux disease without esophagitis
CPT/HCPCS: 70450; 70496; 70498; 71045; 80053; 80061; 80307; 80320; 81001; 84484; 85025; 85610; 85730; 86803; 87389; 93005; 99285; Q9967

== ENCOUNTER 2025-04-10 10:21 | Outpatient (CLI) | payer MEDICARE, SELFPAY ==
--- OUTSIDE RECORDS SUMMARY | 2025-04-11 10:38 | XMS_ITS | Encounter Summary ---
Author Organization [place] [address] Care Team Providers Care Technical Services Coordinator Name Role Phone Mahendra Mireles Primary Care Provider [phone] German Landry MD Primary Care Provider [phone] Cintia Hogan MD Unavailable Unavailable Encounter Details Date Type Department Care Team (Late st Contact Info) Description 02/01/2013 Orders Only SEP Gastro [facility] [address] [facility] [address] [place] [address] Cintia Hogan MD Social History [...] EDT) 02/01/2013 10:3 0 AM EDT Impressions [facility] - 02/01/2013 11:58 AM EDT Polyp (15 mm) in the proximal descending colon. (Polypectomy). Internal hemorrhoids. Plan: Colonoscopy in 5 years. This section is an excerpt of the full report, which can be found by clicking the hyperlink. Cintia Hogan MD GI PROCEDURE ORDERABLES Final R esult [facility] [address] [place] [address] documented in this encounter Visit Diagnoses Not on filedocumented in this encounter Additional Health Concerns Infection Onset Date Last Indicated Resolved Time ESBL organism 09/10/2021 09/10/2021 documented as of this encounter Care Teams Technical Services Coordinator Relationship Specialty Start Date End Date Mahendra Mireles [address] [facility] [address] [place] [address] PCP - General 08/09/10 01/24/14 German Landry MD [address] [place] [address] PCP - General Family Medicine 01/25/14 09/09/22 Cintia Hogan MD [address] [place] [address] Physician Internal Medicine-Gastroenterology 07/07/16 documented as of this encounter
--- OUTSIDE RECORDS SUMMARY | 2025-04-11 10:38 | XMS_ITS | Encounter Summary ---
Author Organization [place] [address] Care Team Providers Care Electric Motors Salesperson Name Role Phone German Landry MD Primary Care Provider [phone] Cintia Hogan MD Unavailable Unavailable Encounter Details Date Type Department Care Team (Late st Contact Info) Description 04/27/2018 Orders Only SEP Gastro [facility] [address] [address] Cintia Hogan MD Social History [...] EDT) 04/27/2018 7:[address] [facility] - 04/27/2018 7:42 AM [...] ORDERABLES Final R esult Performing Organization Address City/State/[facility] Co de Phone Number [facility] [address] [place] [address] documented in this encounter Visit Diagnoses Not on filedocumented in this encounter Additional Health Concerns Infection Onset Date Last Indicated Resolved Time ESBL organism 09/10/2021 09/10/2021 Assessment Noted Time A fall risk assessment has been complete d for the patient 05/13/2017 3:26 PM EDT documented as of this encounter Care Teams Electric [employer] Salesperson Relationship Specialty Start Date End Date German Landry MD [address] [place] [address] PCP - General Family Medicine 01/25/14 09/09/22 Cintia Hogan MD [address] [place] [address] Physician Internal Medicine-Gastroenterology 07/07/16 documented as of this encounter
--- OUTSIDE RECORDS SUMMARY | 2025-04-11 10:38 | XMS_ITS | Encounter Summary ---
Author Organization [place] [address] Care Team Providers Care Wire Transfer Clerk Name Role Phone German Landry MD Primary Care Provider [phone] Cintia Hogan MD Unavailable Unavailable Encounter Details Date Type Department Care Team (Late st Contact Info) Description 08/21/2015 Orders Only SEP Gastro [facility] [address] [place] [address] [address] Cintia Hogan MD Social History [...] Procedure Name Priority Date/Time Associated Diagnosis Comments [facility] EGD Routine 08/21/2015 2:30 PM EST documented in this encounter Results * ED EGD (08/21/2015 2:30 PM EST) 08/21/2015 2:30 PM EST Impressions [facility] - 08/21/2015 3:13 PM EST [...] MD GI PROCEDURE ORDERABLES Final R esult [facility] [address] [place] [address] documented in this encounter Visit Diagnoses Not on filedocumented in this encounter Additional Health Concerns Infection Onset Date Last Indicated Resolved Time ESBL organism 09/10/2021 09/10/2021 documented as of this encounter Care Teams Wire Transfer Clerk Relationship Specialty Start Date End Date German Landry MD [address] [place] [address] PCP - General Family Medicine 01/25/14 09/09/22 Cintia Hogan MD [address] [place] [address] Physician Internal Medicine-Gastroenterology 07/07/16 documented as of this encounter
--- OUTSIDE RECORDS SUMMARY | 2025-04-11 10:38 | XMS_ITS | Clinical Summary ---
Author Organization [facility] Address [address] [facility] [place] [address] Phone Care Team Providers Care Consumer Relations Complaint Clerk Name Role Phone Cintia Hogan MD Unavailable [...] patient to call me if not Improved. [id number] 08/21/15 14:30 EST 08/21/15 20:16 EST Diagnosis [...] status 01/25/14 Living will, counseling/discussion 01/25/14 declines detention vent support and prison nutrition via feeding tubes Insomnia Neck pain [...] Tdap) 02/09/2025 02/09/2015, 01/27/1997, 12/01/1996 Influenza Vaccine (#1) 2025 2, 07/09/2021, 07/11/2020, Additional history exists Pneumococcal Vaccine [...] 140/90 Blood Pressure 128/82(2021 8:12 AM EST) Calrisa Cordero RMA Maintain a healthy diet, exercise regularly and maintain an ideal body weight General Clarisa Cordero RMA Medical Devices Implanted Type Area Prison Guard Device Identifier Shelf Expiration Date Model / Serial / Lot Screw Cannulated Asnis Iii Ti 6.5 X 85mm Tl20mm - [id number] Implanted:Qty: 1 on 10/09/2015 by Tor Stuart MD at [facility] Right: Hip ABDOULAYE:ORTHOPEDI CS [id number] / / Screw Cannulated Asnis Iii Ti 6.5 X 80mm Tl20mm - [id number] Implanted:Qty: 2 on 10/09/2015 by Tor Stuart MD at [facility] Right: Hip ABDOULAYE:ORTHOPEDI CS [id number] / / Procedures Procedure Name Priority Date/Time [...] bone density assessment. Study was performed on RotaBan 5. Bone Density: Region BMD T-score Z-score [...] changed since the last exam. Reported by: Vicik Lee PA-C, CCD on 01/20/2022 2:39:00 PM. [...] Advance Directives For more information, please contact: [phone] Documents on File Type Date Recorded Patient Snow Remover Expl anation Advance Directives/DNR 10/13/2015 5:07 PM Advance Directives/DNR 10/08/2015 ADVANCE DIRECTIVE 10/08/2015 Advance Directives/DNR 05/09/2015 1:07 PM May 09 2015 17:[id number] GMT * Full Code (Latest Code Status on File) Date Activated Date Inactivated Comments 10/09/2015 7:51 PM 10/10/2015 9:59 PM Care Teams Consumer Relations Complaint Clerk Relationship Specialty Start Date End Date Cintia Hogan MD Physician Internal Medicine-Gastroenterology 07/07/16
== END 2025-04-10 23:59 | disposition home or self-care (01) ==
LOC: LAB.DROPOF 04-11 10:08
PROVIDERS: PCP Family Medicine; Visit Provider Family Medicine
DX: R53.1 Weakness (principal); N30.01 Acute cystitis with hematuria
CPT/HCPCS: 87086

== ENCOUNTER 2025-04-19 09:34 | Outpatient (POV) | payer MEDICARE, SELFPAY ==
--- OUTSIDE RECORDS SUMMARY | 2025-04-19 09:39 | XMS_ITS | Encounter Summary ---
Author Organization [place] [address] Care Team Providers Care General Utility Maintenance Repairer Name Role Phone German Landry MD Primary Care Provider [phone] Cintia Hogan MD Unavailable Unavailable Encounter Details Date Type Department Care Team (Late st Contact Info) Description 04/27/2018 Orders Only SEP Gastro [facility] [address] [address] Cintia Hogan MD Social History [...] AM EDT) 04/27/2018 7:30 AM EDT Impressions [facility] - 04/27/2018 7:42 AM EDT The examination was negative from a standpoint of screening. . Diverticulosis of the proximal ascending colon, distal descending colon and sigmoid colon. Internal hemorrhoids. Plan: Colonoscopy in 5 years due to previous history of polyps. This section is an excerpt of the full report. Cintia Hogan MD GI PROCEDURE ORDERABLES Final R esult Performing Organization Address City/State/[facility] Co de Phone Number [facility] [address] [place] [address] documented in this encounter Visit Diagnoses Not on filedocumented in this encounter Additional Health Concerns Infection Onset Date Last Indicated Resolved Time ESBL organism 09/10/2021 09/10/2021 Assessment Noted Time A fall risk assessment has been complete d for the patient 05/13/2017 3:26 PM EDT documented as of this encounter Care Teams General Utility Maintenance Repairer Relationship Specialty Start Date End Date German Landry MD [address] [place] [address] PCP - General Family Medicine 01/25/14 09/09/22 Cintia Hogan MD [address] [place] [address] Physician Internal Medicine-Gastroenterology 07/07/16 documented as of this encounter
--- OUTSIDE RECORDS SUMMARY | 2025-04-19 09:39 | XMS_ITS | Encounter Summary ---
Author Organization [place] [address] Care Team Providers Care Edger Feeder Name Role Phone Mahendra Mireles Primary Care Provider [phone] German Landry MD Primary Care Provider [phone] Cintia Hogan MD Unavailable Unavailable Encounter Details Date Type Department Care Team (Late st Contact Info) Description 02/01/2013 Orders Only SEP Gastro [facility] [facility] [address] [place] [address] Cintia Hogan MD Social History [...] EDT) 02/01/2013 10:3 0 AM EDT Impressions [facility] - 02/01/2013 11:58 AM EDT Polyp (15 mm) in the proximal descending colon. (Polypectomy). Internal hemorrhoids. Plan: Colonoscopy in 5 years. This section is an excerpt of the full report, which can be found by clicking the hyperlink. Cintia Hogan MD GI PROCEDURE ORDERABLES Final R esult [facility] [address] [place] [address] documented in this encounter Visit Diagnoses Not on filedocumented in this encounter Additional Health Concerns Infection Onset Date Last Indicated Resolved Time ESBL organism 09/10/2021 09/10/2021 documented as of this encounter Care Teams Edger Feeder Relationship Specialty Start Date End Date Mahendra Mireles [address] [facility] [address] [place] [address] PCP - General 08/09/10 01/24/14 German Landry MD [address] [place] [address] PCP - General Family Medicine 01/25/14 09/09/22 Cintia Hogan MD [address] [place] [address] Physician Internal Medicine-Gastroenterology 07/07/16 documented as of this encounter
--- OUTSIDE RECORDS SUMMARY | 2025-04-19 09:39 | XMS_ITS | Clinical Summary ---
Author Organization [facility]IRUD[facility]AMAR[facility] SM[facility] Address One [facility] [place] [address] Phone Care Team Providers Care Clinic Cma Name Role Phone Cintia Hogan MD Unavailable [...] patient to call me if not Improved. [id number] 08/21/15 14:30 EST 08/21/15 20:16 EST Diagnosis [...] status 01/25/14 Living will, counseling/discussion 01/25/14 declines residential vent support and fci nutrition via feeding tubes Insomnia Neck pain [...] Cordero RMA Medical Devices Implanted Type Area Manager Technical Training Device Identifier Shelf Expiration Date Model / Serial / Lot Screw Cannulated Asnis Iii Ti 6.5 X 85mm Tl20mm - [id number] Implanted:Qty: 1 on 10/09/2015 by Tor Stuart MD at [facility] Right: Hip ABDOULAYE:ORTHOPEDI CS [id number] / / Screw Cannulated Asnis Iii Ti 6.5 X 80mm Tl20mm - [id number] Implanted:Qty: 2 on 10/09/2015 by Tor Stuart MD at [facility] Right: Hip ABDOULAYE:ORTHOPEDI CS [id number] / / Procedures Procedure Name Priority Date/Time [...] bone density assessment. Study was performed on UBmatrix 5. 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
--- OUTSIDE RECORDS SUMMARY | 2025-04-19 09:39 | XMS_ITS | Encounter Summary ---
Author Organization [place] [address] Care Team Providers Care Apartment Assistant Manager Name Role Phone German Landry MD Primary Care Provider [phone] Cintia Hogan MD Unavailable Unavailable Encounter Details Date Type Department Care Team (Late st Contact Info) Description 08/21/2015 Orders Only SEP Gastro [facility] [address] [place] [address] [address] Cintia Hogan MD Social History [...] Procedure Name Priority Date/Time Associated Diagnosis Comments [facility] EGD Routine 08/21/2015 2:30 PM EST documented in this encounter Results * ED EGD (08/21/2015 2:30 PM EST) 08/21/2015 2:30 PM EST Impressions [facility] - 08/21/2015 3:13 PM EST [...] MD GI PROCEDURE ORDERABLES Final R esult [facility] [address] [place] [address] documented in this encounter Visit Diagnoses Not on filedocumented in this encounter Additional Health Concerns Infection Onset Date Last Indicated Resolved Time ESBL organism 09/10/2021 09/10/2021 documented as of this encounter Care Teams Apartment Assistant Manager Relationship Specialty Start Date End Date German Landry MD [address] [place] [address] PCP - General Family Medicine 01/25/14 09/09/22 Cintia Hogan MD [address] [place] [address] Physician Internal Medicine-Gastroenterology 07/07/16 documented as of this encounter
[2025-04-19 09:58] VITALS: BP 130/72; PULSE 69; RESP 14; O2SAT 99; BMI 17.7
--- NOTE | 2025-04-19 09:59 | EXP.PAIN.SOA ---
[facility] Disclaimer: The information contained in this section may have been updated after the patient was seen, as this information can be updated by other users. Medical History Vitamin B12 deficiency [place] of toe [place] of foot Bilateral hip pain Bilateral low back pain Chest pain Right to left cardiac shunt Fatigue Abnormal echocardiogram Abnormal Holter monitor finding Cryptogenic stroke Cataract Dementia CVA (cerebral vascular accident) Most likely cardioembolic in nature. Evidence of bihemispheric strokes in the past including posterior circulation CVA, (clinically silent). Hypokalemia Cellulitis of right pinna Bladder prolapse, female, acquired Dysuria IFG (impaired fasting glucose) Memory changes Recurrent UTI Allergic rhinitis Insomnia Anxiety Osteoporosis GERD (gastroesophageal reflux disease) Essential hypertension Hyperlipidemia Broken hip Surgical History History of loop recorder History of cardiac cath History of repair of left hip joint History of hysterectomy Family History Son Cancer Social History Smoking Status: Never smoker alcohol intake: never substance use type: denies use current occupational status: retired Travel in the last 8 weeks?: None household members: spouse housing: house lives independently: Yes marital status: number of children: 4 number of grandchildren: 6 PM Subjective & Objective Subjective Subjective:: Patient is a pleasant 84-year-old female who presents today for her 6-week follow-up of her left SI injection. Today she rates her pain a 0 out of 10. She states that she has continued to do really well following that injection and feels much more functional. Patient denies any new falls or injuries. Her Gavin has been reviewed and is appropriate. Review of Systems: General: No recent weight changes, no fever, no sleep disturbances Respiratory: No cough, no shortness of air, no recurring pulmonary infections Cardiovascular/peripheral vascular: No chest pain, no palpitations, no edema, no shortness of breath Gastrointestinal: No new onset incontinence, normal bowel movements reported Genitourinary: No new onset incontinence Musculoskeletal: Low back pain Psychiatric: [Normal mood/affect] Neurological: [Denies weakness in extremities], [denies balance issues] Pain at rest (0-10 scale): 0 Objective Objective:: Physical Exam: General: Alert and oriented x3, no acute distress, pleasant and cooperative Lungs: Respirations even and unlabored, symmetrical chest expansion Eyes: PERRL Musculoskeletal: Flexion and extension of lumbar [spine] within normal limits Neurological: Speech clear, no gross sensory deficit Has patient had previous pain injection?: No Conservative treatment options previously tried: Home exercise plan Length of treatment: Longer than 12 weeks Meds Home Medications and Allergies Home Medications ?Medication ?Instructions ?Recorded ?Confirmed ?Type aspirin 81 mg tablet,delayed 81 mg PO DAILY 30 days #30 tabs 01/01/24 04/10/25 Rx release qkmyggtx-ursk-hbux 8 mg-folic 400 1 tab PO DAILY 06/20/24 04/10/25 History mcg-K 50 mcg-lutein 300 mcg tablet (Centrum Silver Women) alendronate 70 mg tablet 70 mg PO WEEKLY #14 tabs 08/03/24 04/10/25 Rx metoprolol succinate 25 mg 25 mg PO DAILY #90 tabs 09/14/24 04/10/25 Rx tablet,extended release 24 hr (Toprol XL) clopidogrel 75 mg tablet (Plavix) 75 mg PO DAILY #30 tabs 10/13/24 04/10/25 Rx polyethylene glycol 3350 17 17 g PO BID #1,020 grams 01/03/25 04/10/25 Rx gram/dose oral powder (Miralax) lorazepam 0.5 mg tablet See Rx Instructions .Route 02/06/25 04/10/25 Rx .COMPLEX PRN anxiety #90 tabs memantine 10 mg tablet 10 mg PO BID #180 tabs 02/07/25 04/10/25 Rx atorvastatin 40 mg tablet 40 mg PO HS 30 days #90 tabs 03/13/25 04/10/25 Rx losartan 50 mg-hydrochlorothiazide 1 tab PO DAILY #90 tabs 03/13/25 04/10/25 Rx 12.5 mg tablet estradiol 0.01% (0.1 mg/gram) See Rx Instructions vaginal 04/10/25 04/10/25 Rx vaginal cream .COMPLEX #42.5 grams nitrofurantoin 100 mg PO Q12H 7 days #14 caps 04/10/25 04/10/25 Rx monohydrate/macrocrystals 100 mg capsule (Macrobid) New Prescriptions to Start Prescriptions: Allergies Allergy/AdvReac Type Severity Reaction Status Date / Time acetaminophen (From Allergy Mild Rash Verified 04/10/25 10:18 Tylenol-Codeine #3) ciprofloxacin (From Cipro) Allergy Mild Rash Verified 04/10/25 10:18 codeine (From Allergy Mild Rash Verified 04/10/25 10:18 Tylenol-Codeine #3) cyclobenzaprine (From Allergy Mild Rash Verified 04/10/25 10:18 Flexeril) doxycycline Allergy Mild Rash Verified 04/10/25 10:18 erythromycin base Allergy Mild Rash Verified 04/10/25 10:18 hydrocodone Allergy Mild Rash Verified 04/10/25 10:18 loratadine (From Claritin) Allergy Mild Rash Verified 04/10/25 10:18 oxycodone (From Roxicet) Allergy Mild Rash Verified 04/10/25 10:18 Assessment and Plan *Assessment and plan (1) Sacroiliitis: Status: Acute Category: Medical Code(s): M46.1 - Sacroiliitis, not elsewhere classified Plan Patient continues to do well from her left SI injection and does not require any additional injection therapy at this time. Patient will return to clinic in 3 months for reevaluation of symptoms and plan of care. Patient has been instructed to contact the clinic with any concerns before the next appointment. Dr. Marti has reviewed this note and agrees with this plan of care. This note was dictated using voice recognition software and make contain errors or omissions. All injections are used with Lidocaine, Bupivacaine and dexamethasone. Occasionally urine drug screen is needed to verify patient's compliance with our office pain contract. This is ordered based off specific treatments related to chronic pain with the potential to abuse certain medications.
== END 2025-04-19 23:59 | disposition home or self-care (01) ==
LOC: SC.PAIN 09:35
PROVIDERS: PCP Family Medicine; Visit Provider Nurse Practitioner Family
DX: M46.1 Sacroiliitis, not elsewhere classified (principal)
CPT/HCPCS: 99212; G0463

== ENCOUNTER 2025-05-08 10:16 | Outpatient (CLI) | payer MEDICARE, SELFPAY ==
--- OUTSIDE RECORDS SUMMARY | 2025-05-08 10:20 | XMS_ITS | Encounter Summary ---
Author Organization [place] [address] Care Team Providers Care [place] Guide Name Role Phone German Landry MD Primary Care Provider [phone] Cintia Hogan MD Unavailable Unavailable Encounter Details Date Type Department Care Team (Late st Contact Info) Description 08/21/2015 Orders Only SEP Gastro [facility] [address] [place] [address] [address] Cintia Hogan MD Social History [...] Procedure Name Priority Date/Time Associated Diagnosis Comments [facility] EGD Routine 08/21/2015 2:30 PM EST documented in this encounter Results * ED EGD (08/21/2015 2:30 PM EST) 08/21/2015 2:30 PM EST [facility]ressions [facility] - 08/21/2015 3:13 PM EST [...] PROCEDURE ORDERABLES Final R esult [facility] [address] [place] [address] documented in this encounter Visit Diagnoses Not on filedocumented in this encounter Additional Health Concerns Infection Onset Date Last Indicated Resolved Time ESBL organism 09/10/2021 09/10/2021 documented as of this encounter Care Teams [place] Guide Relationship Specialty Start Date End Date German Landry MD [address] [place] [address] PCP - General Family Medicine 01/25/14 09/09/22 Cintia Hogan MD [address] [place] [address] Physician Internal Medicine-Gastroenterology 07/07/16 documented as of this encounter
--- OUTSIDE RECORDS SUMMARY | 2025-05-08 10:20 | XMS_ITS | Encounter Summary ---
Author Organization [place] [address] Care Team Providers Care Department Head [employer] Name Role Phone Mahendra Mireles Primary Care Provider [phone] German Landry MD Primary Care Provider [phone] Cinita Hogan MD Unavailable Unavailable Encounter Details Date Type Department Care Team (Late st Contact Info) Description 02/01/2013 Orders Only SEP Gastro [facility] [address] [facility] [address] [place] [address] Cintia Hogan MD Social History [...] EDT) 02/01/2013 10:3 0 AM EDT Impressions [facility] - 02/01/2013 11:58 AM EDT Polyp (15 mm) in the proximal descending colon. (Polypectomy). Internal hemorrhoids. Plan: Colonoscopy in 5 years. This section is an excerpt of the full report, which can be found by clicking the hyperlink. Cintia Hogan MD GI PROCEDURE ORDERABLES Final R esult [facility] [address] [place] [address] documented in this encounter Visit Diagnoses Not on filedocumented in this encounter Additional Health Concerns Infection Onset Date Last Indicated Resolved Time ESBL organism 09/10/2021 09/10/2021 documented as of this encounter Care Teams Department Head [employer] Relationship Specialty Start Date End Date Mahendra Mireles [address] [place] [facility] [address] [place] [address] PCP - General 08/09/10 01/24/14 German Landry MD [address] [place] [address] PCP - General Family Medicine 01/25/14 09/09/22 Cintia Hogan MD [address] [place] [address] Physician Internal Medicine-Gastroenterology 07/07/16 documented as of this encounter
--- OUTSIDE RECORDS SUMMARY | 2025-05-08 10:20 | XMS_ITS | Clinical Summary ---
Author Organization NAIRUD[facility]AMAR[facility] SMITH [facility] Address One [facility] [address] Phone Care Team Providers Care Booster Operator Name Role Phone Cintia Hogan MD Unavailable [...] patient to call me if not Improved. 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 and custodial nutrition via feeding tubes Insomnia Neck pain [...] Cordero RMA Medical Devices Implanted Type Area Steam Cleaner Device Identifier Shelf Expiration Date Model / Serial / Lot Screw Cannulated Asnis Iii Ti 6.5 X 85mm Tl20mm - [id number] Implanted:Qty: 1 on 10/09/2015 by Tor Stuart MD at [facility] Right: Hip ABDOULAYE:ORTHOPEDI CS [id number] / / Screw Cannulated Asnis Iii Ti 6.5 X 80mm Tl20mm - [id number] Implanted:Qty: 2 on 10/09/2015 by Tor Stuart MD at [facility] Right: Hip ABDOULAYE:ORTHOPEDI CS [id number] / / Procedures Procedure Name Priority Date/Time [...] bone density assessment. Study was performed on StoredIQ 5. 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
--- OUTSIDE RECORDS SUMMARY | 2025-05-08 10:20 | XMS_ITS | Encounter Summary ---
Author Organization [place] [address] Care Team Providers Care Continuous Washer Operator Name Role Phone German Landry MD Primary Care Provider [phone] Cintia Hogan MD Unavailable Unavailable Encounter Details Date Type Department Care Team (Late st Contact Info) Description 04/27/2018 Orders Only SEP Gastro [facility] [address] [address] Cintia Hogan MD Social History [...] AM EDT) 04/27/2018 7:30 AM EDT Impressions [facility] - 04/27/2018 7:42 AM EDT The examination was negative from a standpoint of screening. . Diverticulosis of the proximal ascending colon, distal descending colon and sigmoid colon. Internal hemorrhoids. Plan: Colonoscopy in 5 years due to previous history of polyps. This section is an excerpt of the full report. Cintia Hogan MD GI PROCEDURE ORDERABLES Final R esult Performing Organization Address City/State/[facility] Co de Phone Number [facility] [address] [place] [address] documented in this encounter Visit Diagnoses Not on filedocumented in this encounter Additional Health Concerns Infection Onset Date Last Indicated Resolved Time ESBL organism 09/10/2021 09/10/2021 Assessment Noted Time A fall risk assessment has been complete d for the patient 05/13/2017 3:26 PM EDT documented as of this encounter Care Teams Continuous Washer Operator Relationship Specialty Start Date End Date German Landry MD [address] [place] [address] PCP - General Family Medicine 01/25/14 09/09/22 Cintia Hogan MD [address] [place] [address] Physician Internal Medicine-Gastroenterology 07/07/16 documented as of this encounter
[2025-05-08 11:15] LABS: Iron 79 ug/dL (37-170)
[2025-05-08 11:29] LABS: Total Iron Binding Capacity 253 ug/dL (265-497)
[2025-05-08 11:55] LABS: Ferritin 80.5 ng/ml (11.1-264)
== END 2025-05-08 23:59 | disposition home or self-care (01) ==
LOC: LAB 10:16
PROVIDERS: PCP Family Medicine; Visit Provider Specialist
DX: E53.8 Deficiency of other specified B group vitamins (principal); D64.9 Anemia, unspecified
CPT/HCPCS: 36415; 82728; 83540; 83550

== ENCOUNTER 2025-05-09 10:32 | Outpatient (CLI) | payer MEDICARE, SELFPAY ==
--- OUTSIDE RECORDS SUMMARY | 2025-05-09 10:43 | XMS_ITS | Encounter Summary ---
Author Organization [place] [address] Care Team Providers Care Content Engineer Name Role Phone German Landry MD Primary Care Provider [phone] Cintia Hogan MD Unavailable Unavailable Encounter Details Date Type Department Care Team (Late st Contact Info) Description 08/21/2015 Orders Only SEP Gastro [facility] [address] [place] [address] [address] Cintia oHgan MD Social History Tobacco Use Types Packs/Day [...] Procedure Name Priority Date/Time Associated Diagnosis Comments [facility] EGD Routine 08/21/2015 2:30 PM EST documented [...] MD GI PROCEDURE ORDERABLES Final R esult [facility] 1 [place] [address] documented in this encounter Visit Diagnoses Not on filedocumented in this encounter Additional Health Concerns Infection Onset Date Last Indicated Resolved Time ESBL organism 09/10/2021 09/10/2021 documented as of this encounter Care Teams Content Engineer Relationship Specialty Start Date End Date German Landry MD [address] [place] [address] PCP - General Family Medicine 01/25/14 09/09/22 Cintia Hogan MD [address] [place] [address] Physician Internal Medicine-Gastroenterology 07/07/16 documented as of this encounter
--- OUTSIDE RECORDS SUMMARY | 2025-05-09 10:43 | XMS_ITS | Encounter Summary ---
Author Organization [place] [address] Care Team Providers Care Information Technology Officer Name Role Phone German Landry MD Primary Care Provider [phone] Cintia Hogan MD Unavailable Unavailable Encounter Details Date Type Department Care Team (Late st Contact Info) Description 04/27/2018 Orders Only SEP Gastro [facility] [address] [address] Cintia Hogan MD Social History [...] EDT) 04/27/2018 7:30 AM EDT Impressions [facility] - 04/27/2018 7:42 AM EDT The examination was negative from a standpoint of screening. . Diverticulosis of the proximal ascending colon, distal descending colon and sigmoid colon. Internal hemorrhoids. Plan: Colonoscopy in 5 years due to previous history of polyps. This section is an excerpt of the full report. Cintia Hogan MD GI PROCEDURE ORDERABLES Final R esult Performing Organization Address City/State/[facility] Co de Phone Number [facility] [address] [place] [address] documented in this encounter Visit Diagnoses Not on filedocumented in this encounter Additional Health Concerns Infection Onset Date Last Indicated Resolved Time ESBL organism 09/10/2021 09/10/2021 Assessment Noted Time A fall risk assessment has been complete d for the patient 05/13/2017 3:26 PM EDT documented as of this encounter Care Teams Information Technology Officer Relationship Specialty Start Date End Date German Landry MD [address] [place] [address] PCP - General Family Medicine 01/25/14 09/09/22 Cintia Hogan MD [address] [place] [address] Physician Internal Medicine-Gastroenterology 07/07/16 documented as of this encounter
--- OUTSIDE RECORDS SUMMARY | 2025-05-09 10:43 | XMS_ITS | Encounter Summary ---
Author Organization [place] [address] Care Team Providers Care Harpsichord Maker Name Role Phone Mahendra Mireles Primary Care Provider [phone] German Landry MD Primary Care Provider [phone] Cintia Hogan MD Unavailable Unavailable Encounter Details Date Type Department Care Team (Late st Contact Info) Description 02/01/2013 Orders Only SEP Gastro CVH [address] [facility] [address] [place] [address] Cintia Hogan MD Social History [...] 10:3 0 AM EDT Impressions [facility] - 02/01/2013 11:58 AM EDT Polyp (15 mm) in the proximal descending colon. (Polypectomy). Internal hemorrhoids. Plan: Colonoscopy in 5 years. This section is an excerpt of the full report, which can be found by clicking the hyperlink. Cintia Hogan MD GI PROCEDURE ORDERABLES Final R esult [facility] [address] [place] [address] documented in this encounter Visit Diagnoses Not on filedocumented in this encounter Additional Health Concerns Infection Onset Date Last Indicated Resolved Time ESBL organism 09/10/2021 09/10/2021 documented as of this encounter Care Teams Harpsichord Maker Relationship Specialty Start Date End Date Mahendra Mireles [address] [facility] [address] [place] [address] PCP - General 08/09/10 01/24/14 German Landry MD [address] [place] [address] PCP - General Family Medicine 01/25/14 09/09/22 Cintia Hogan MD [address] [place] [address] Physician Internal Medicine-Gastroenterology 07/07/16 documented as of this encounter
--- OUTSIDE RECORDS SUMMARY | 2025-05-09 10:43 | XMS_ITS | Clinical Summary ---
Author Organization [facility]IRUD[facility]AM[facility] SMITH [facility] Address [address] [facility] [place] [address] Phone Care Team Providers Care Stage Manager Name Role Phone Cintia Hogan MD Unavailable [...] patient to call me if not Improved. [id number] 08/21/15 14:30 EST 08/21/15 20:16 EST Diagnosis [...] status 01/25/14 Living will, counseling/discussion 01/25/14 declines ocean transportation intermediary vent support and [facility] nutrition via feeding tubes Insomnia Neck pain [...] Cordero RMA Medical Devices Implanted Type Area Coordinator Cardiopulmonary Services Device Identifier Shelf Expiration Date Model / Serial / Lot Screw Cannulated Asnis Iii Ti 6.5 X 85mm Tl20mm - [id number] Implanted:Qty: 1 on 10/09/2015 by Tor Stuart MD at [facility] Right: Hip ABDOULAYE:ORTHOPEDI CS [id number] / / Screw Cannulated Asnis Iii Ti 6.5 X 80mm Tl20mm - [id number] Implanted:Qty: 2 on 10/09/2015 by Tor Stuart MD at [facility] Right: Hip ABDOULAYE:ORTHOPEDI CS [id number] / / Procedures Procedure Name Priority Date/Time [...] bone density assessment. Study was performed on [employer] 5. 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
[2025-05-09 11:24] LABS: Hematocrit 38.7 % (37.0-47.0); Hemoglobin 12.1 g/dL (12.2-16.2); Immature Granulocytes % 0.3 %; Mean Corpuscular HGB Conc 31.3 g/dL (31.8-35.4); Mean Corpuscular Hemoglobin 27.9 pg (27.0-31.2); Mean Corpuscular Volume 89.4 fl (81-99); Nucleated Red Blood Cells % 0 %; Platelet Count 229 K/mm3 (142-424); Red Blood Count 4.33 M/mm3 (4.20-5.40); Red Cell Distribution Width-SD 44.7 fL; Reticulocyte % (Auto) 1.2 % (0.9-3.2); White Blood Count 6.3 K/mm3 (4.8-10.8)
[2025-05-09 13:52] LABS: Folate > 20.00 ng/mL
== END 2025-05-09 23:59 | disposition home or self-care (01) ==
LOC: LAB 10:32
PROVIDERS: PCP Family Medicine; Visit Provider Internal Medicine Medical Oncology
DX: D64.9 Anemia, unspecified (principal)
CPT/HCPCS: 36415; 81596; 82746; 85025; 85044; 86880

== ENCOUNTER 2025-06-06 09:37 | Day surgery (SDC) | payer MEDICARE, SELFPAY ==
[2025-06-02 15:23] VITALS: BMI 17.7
[2025-06-06] VITALS (7 sets, daily range): BP systolic 143–178; BP diastolic 60–82; PULSE 57–73; RESP 16–18; TEMP 36.3–36.7; O2SAT 99–100; BMI 16.5
[2025-06-06] MEDS: TETRACAINE 0.5% OPTH SOL 15ML OP ×3 (10:05→10:15)
[2025-06-06] MEDS: CYCLOPENTOLATE 2% OPHTH SOLN 2ML BOTTLE OP ×3 (10:05→10:15)
[2025-06-06] MEDS: PHENYLEPHRINE 2.5% OPHTH SOLN 2ML OP ×3 (10:05→10:15)
[2025-06-06] MEDS: MIDAZOLAM 2MG/2ML VIAL 1 MG IV (11:28)
[2025-06-06] MEDS: TIMOLOL 0.5% OPTH SOLN 5ML OP (11:28)
[2025-06-06] MEDS: TOBRAMYCIN/DEX OPTH SUSP 2.5ML OP (11:28)
[2025-06-06] MEDS: LIDOCAINE 1% PF 2ML VIAL 2 ML IJ (11:28)
--- NOTE | 2025-06-06 13:08 | HMH.PROCNOTE ---
[facility] Procedure Note Date: 06/06/25 Time: 13:09 Procedure Note:: Preoperative Diagnosis: Cataract combined NS Cortical Complex [Left] Eye Postop diagnosis: same Operation: Microscopic phacoemulsification with intraocular lens implant [Left] Eye Specimen: None Blood Loss: None The patient was examined in the office with a complaint of poor vision in the [left] eye. The patient reports that this interferes with ADLs such as reading, watching TV and/or driving or the vision is like looking through a foggy haze and is very troubling. The patient was examined and found to have a visually significant cataract with best corrected vision of [20/400] by refraction and/or glare testing. Treatment options, risks and benefits were explained and the patient elected to have cataract surgery in an attempt to improve their vision. The patient had the eye anesthetized with topical tetracaine, the eye ways prepped and draped in the usual fashion for cataract surgery. A paracentesis and a temporal keratotomy were made. 0.2cc of 1% lidocaine PF was placed into the anterior chamber. And aqueous/viscoelastic exchange was done and a 360 degree capsulorexis was performed. Through hydrodissection and delineation with BSS on a cannula was done. The lens nucleus was phecoemulsified with CDE of [7.01]. Residual cortical material was removed using automated I&A The capsular bag was deepened with viscoelastica and a PCIOL was placed in the capsular bag with good centration and stability. Residual viscoelastic was removed using automated I&A. The keratotomy incision was hydrated with BSS on a cannula. The wound were checked and found to be water tight. IOP was checked digitally and adjusted as needed so as not to be too high. 1 drop of timolol 0.5%, ofloxacin, prednisolone acetate and ketorolac was instilled and eye shield taped over the eye. The patient was taken to recovery in good condition and will be seen postoperatively.
== END 2025-06-06 11:50 | disposition home or self-care (01) ==
PROVIDERS: PCP Family Medicine; Visit Provider Ophthalmology
PROC: (CPT 66984; principal; 2025-06-06 12:30)
DX: H25.813 Combined forms of age-related cataract, bilateral (principal); H53.8 Other visual disturbances; H02.834 Dermatochalasis of left upper eyelid; H02.831 Dermatochalasis of right upper eyelid; M19.90 Unspecified osteoarthritis, unspecified site; E78.5 Hyperlipidemia, unspecified; I10 Essential (primary) hypertension; Z87.891 Personal history of nicotine dependence; Z88.6 Allergy status to analgesic agent; Z88.1 Allergy status to other antibiotic agents; Z88.5 Allergy status to narcotic agent; Z88.8 Allergy status to other drugs, medicaments and biological substances; Z79.82 Long term (current) use of aspirin; Z79.899 Other long term (current) drug therapy; Z79.01 Long term (current) use of anticoagulants; Z86.73 Personal history of transient ischemic attack (TIA), and cerebral infarction without residual deficits
CPT/HCPCS: 66984; J2250; V2632

== ENCOUNTER 2025-06-20 07:07 | Day surgery (SDC) | payer MEDICARE, SELFPAY ==
[2025-06-19 08:59] VITALS: BMI 17.7
[2025-06-20 08:12] VITALS: BP 181/80; PULSE 64; RESP 16; TEMP 36.1; O2SAT 99; BMI 17.7
[2025-06-20] MEDS: TETRACAINE 0.5% OPTH SOL 15ML OP ×3 (08:30→08:40)
[2025-06-20] MEDS: CYCLOPENTOLATE 2% OPHTH SOLN 2ML BOTTLE OP ×3 (08:30→08:40)
[2025-06-20] MEDS: PHENYLEPHRINE 2.5% OPHTH SOLN 2ML OP ×3 (08:30→08:40)
[2025-06-20 09:29] VITALS: BP 195/86; PULSE 60; RESP 16; O2SAT 100
[2025-06-20] MEDS: MIDAZOLAM 2MG/2ML VIAL 1 MG IV (09:32)
[2025-06-20] MEDS: TOBRAMYCIN/DEX OPTH SUSP 2.5ML OP (09:33)
[2025-06-20] MEDS: LIDOCAINE 1% PF 2ML VIAL 2 ML IJ (09:33)
[2025-06-20] MEDS: TIMOLOL 0.5% OPTH SOLN 5ML OP (09:33)
[2025-06-20 09:34] VITALS: BP 166/77; PULSE 57; RESP 16; O2SAT 100
[2025-06-20 09:39] VITALS: BP 157/74; PULSE 60; RESP 16; O2SAT 100
[2025-06-20 09:40] VITALS: BP 165/76; PULSE 56; RESP 16; O2SAT 100
[2025-06-20 09:47] VITALS: BP 145/76; PULSE 64; RESP 18; TEMP 36.1; O2SAT 99
--- NOTE | 2025-06-20 11:49 | HMH.PROCNOTE ---
[facility] Procedure Note Date: 06/20/25 Time: 11:49 Procedure Note:: Preoperative Diagnosis: Cataract combined NS Cortical Complex [Right] Eye Postop diagnosis: same Operation: Microscopic phacoemulsification with intraocular lens implant [Right] Eye Specimen: None Blood Loss: None The patient was examined in the office with a complaint of poor vision in the [right] eye. The patient reports that this interferes with ADLs such as reading, watching TV and/or driving or the vision is like looking through a foggy haze and is very troubling. The patient was examined and found to have a visually significant cataract with best corrected vision of [20/400] by refraction and/or glare testing. Treatment options, risks and benefits were explained and the patient elected to have cataract surgery in an attempt to improve their vision. The patient had the eye anesthetized with topical tetracaine, the eye ways prepped and draped in the usual fashion for cataract surgery. A paracentesis and a temporal keratotomy were made. 0.2cc of 1% lidocaine PF was placed into the anterior chamber. And aqueous/viscoelastic exchange was done and a 360 degree capsulorexis was performed. Through hydrodissection and delineation with BSS on a cannula was done. The lens nucleus was phecoemulsified with CDE of [7.05 ]. Residual cortical material was removed using automated I&A The capsular bag was deepened with viscoelastica and a PCIOL was placed in the capsular bag with good centration and stability. Residual viscoelastic was removed using automated I&A. The keratotomy incision was hydrated with BSS on a cannula. The wound were checked and found to be water tight. IOP was checked digitally and adjusted as needed so as not to be too high. 1 drop of timolol 0.5%, ofloxacin, prednisolone acetate and ketorolac was instilled and eye shield taped over the eye. The patient was taken to recovery in good condition and will be seen postoperatively.
== END 2025-06-20 10:00 | disposition home or self-care (01) ==
PROVIDERS: PCP Family Medicine; Visit Provider Ophthalmology
DX: H25.811 Combined forms of age-related cataract, right eye (principal); H02.836 Dermatochalasis of left eye, unspecified eyelid; H02.833 Dermatochalasis of right eye, unspecified eyelid; H53.143 Visual discomfort, bilateral; F41.9 Anxiety disorder, unspecified; E78.5 Hyperlipidemia, unspecified; F03.90 Unspecified dementia, unspecified severity, without behavioral disturbance, psychotic disturbance, mood disturbance, and anxiety; I10 Essential (primary) hypertension; Z86.73 Personal history of transient ischemic attack (TIA), and cerebral infarction without residual deficits; Z87.891 Personal history of nicotine dependence; Z88.1 Allergy status to other antibiotic agents; Z88.5 Allergy status to narcotic agent; Z88.6 Allergy status to analgesic agent; Z88.8 Allergy status to other drugs, medicaments and biological substances; Z79.899 Other long term (current) drug therapy
CPT/HCPCS: 66984; J2250; V2632

== ENCOUNTER → 2025-07-07 11:50 | Outpatient (CLI) | payer MEDICARE, SELFPAY | LOC: SL 11:51 | PROVIDERS: PCP Family Medicine; Visit Provider Internal Medicine Pulmonary Disease | DX: G47.34 Idiopathic sleep related nonobstructive alveolar hypoventilation (principal) ==

== ENCOUNTER 2025-08-09 09:59 | Outpatient (CLI) | payer MEDICARE, SELFPAY ==
--- OUTSIDE RECORDS SUMMARY | 2025-08-09 10:04 | XMS_ITS | Encounter Summary ---
Author Organization [place] [address] Care Team Providers Care Stripper And Taper Name Role Phone Mahendra Mireles Primary Care Provider [phone] German Landry MD Primary Care Provider [phone] Cintia Hogan MD Unavailable Unavailable Encounter Details Date Type Department Care Team (Late st Contact Info) Description 02/01/2013 Orders Only SEP Gastro CV [address] [facility] [address] [place] [address] Cintia Hogan MD Social History Tobacco Use [...] EDT) 02/01/2013 10:[address] [facility] - 02/01/2013 11:58 AM EDT Polyp (15 mm) in the proximal descending colon. (Polypectomy). Internal hemorrhoids. Plan: Colonoscopy in 5 years. This section is an excerpt of the full report, which can be found by clicking the hyperlink. Cintia Hogan MD GI PROCEDURE ORDERABLES Final R esult 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
--- OUTSIDE RECORDS SUMMARY | 2025-08-09 10:04 | XMS_ITS | Encounter Summary ---
Author Organization [place] [address] Care Team Providers Care Swing Grinder Name Role Phone German Landry MD Primary Care Provider [phone] Cintia Hogan MD Unavailable Unavailable Encounter Details Date Type Department Care Team (Late st Contact Info) Description 04/27/2018 Orders Only SEP Gastro [facility] [address] [facility] [facility] [address] [place] [address] Cintia Hogan MD Social History [...] 11/02/2017 10:32 AM Jose Armando Kwong CMA documented as of this encounter Mental Status * Because of a physical, mental or emotional condition, does this person have serious difficulty concentrating, remembering or making decisions? Answer Entry Date Author No 11/02/2017 10:32 AM Jose Armando Kwong CMA documented in this encounter Plan of Treatment Not on file documented as of this encounter Goals Goal Patient Goal Type Associated Problems Recent Progress Patient-Stated? Author Blood Pressure < 140/90 Blood Pressure 128/82(2021 8:12 AM EST) No Reynoso Clarisa N, RMA Maintain a healthy diet, exercise regularly and maintain an ideal body weight General No Reynoso, Clarisa N, RMA documented as of this encounter Procedures Procedure Name Priority Date/Time Associated Diagnosis Comments [facility] COLONOSCOPY Routine 04/27/2018 7:30 AM EDT documented in this encounter Results * [facility] COLONOSCOPY (04/27/2018 7:30 AM EDT) 04/27/2018 7:30 AM EDT Impressions [facility] - 04/27/2018 7:42 AM EDT The [...] esult [facility] [address] [place] [address] documented in this encounter Visit Diagnoses Not on filedocumented in this encounter Additional Health Concerns Infection Onset Date Last Indicated Resolved Time ESBL organism 09/10/2021 09/10/2021 Assessment Noted Time A fall risk assessment has been complete d for the patient 05/13/2017 3:26 PM EDT documented as of this encounter Care Teams Swing Grinder Relationship Specialty Start Date End Date German Landry MD [address] [place] [address] PCP - General Family Medicine 01/25/14 09/09/22 Cintia Hogan MD [address] [place], [place] [address] Physician Internal Medicine-Gastroenterology 07/07/16 documented as of this encounter
--- OUTSIDE RECORDS SUMMARY | 2025-08-09 10:04 | XMS_ITS | Encounter Summary ---
Author Organization [place] [address] Care Team Providers Care Campaign Assistant Name Role Phone German Landry MD Primary Care Provider [phone] Cintia Hogan MD Unavailable Unavailable Encounter Details Date Type Department Care Team (Late st Contact Info) Description 08/21/2015 Orders Only SEP Gastro [facility] [address] [facility] [address] [place] [address] Cnitia Hogan MD Social History Tobacco Use Types [...] Procedure Name Priority Date/Time Associated Diagnosis Comments [facility] EGD Routine 08/21/2015 2:30 PM EST documented in this encounter Results * ED EGD (08/21/2015 2:30 PM EST) 08/21/2015 2:30 PM EST Impressions [facility] - 08/21/2015 3:13 PM [...] PROCEDURE ORDERABLES Final R esult [facility] [address] [place] [address] documented in this encounter Visit Diagnoses Not on filedocumented in this encounter Additional Health Concerns Infection Onset Date Last Indicated Resolved Time ESBL organism 09/10/2021 09/10/2021 documented as of this encounter Care Teams Campaign Assistant Relationship Specialty Start Date End Date German Landry MD [address] [place] [address] PCP - General Family Medicine 01/25/14 09/09/22 Cintia Hogan MD [address] [place] [address] Physician Internal Medicine-Gastroenterology 07/07/16 documented as of this encounter
--- OUTSIDE RECORDS SUMMARY | 2025-08-09 10:04 | XMS_ITS | Clinical Summary ---
Author Organization [facility]IRUD[facility] SMITH [facility] Address [address] [facility] [place] [address] Phone Care Team Providers Care Copier Repair Technician Name Role Phone Cintia Hogan MD Unavailable [...] patient to call me if not Improved. 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 and [facility] nutrition via feeding tubes Insomnia Neck pain [...] on file Sexual Orientation Not on file Last Filed Vital Signs Vital Sign Reading [...] 60+ (1 - 1-dose 75+ series) 2016 DTaP/TDaP/Td (3 - Td or Tdap) 02/09/2025 02/09/2015, 01/27/1997, 12/01/1996 COVID-19 Vaccine ( season) 2025 10/01/2021, 11/07/2020, 10/10/2020 Influenza Vaccine (#1) 2025 2, 07/09/2021, 07/11/2020, [...] Cordero RMA Medical Devices Implanted Type Area Interior Design Project Manager Device Identifier Shelf Expiration Date Model / Serial / Lot Screw Cannulated Asnis Iii Ti 6.5 X 85mm Tl20mm - [id number] Implanted:Qty: 1 on 10/09/2015 by Tor Stuart MD at [facility] Right: Hip ABDOULAYE:ORTHOPEDI CS [id number] / / Screw Cannulated Asnis Iii Ti 6.5 X 80mm Tl20mm - [id number] Implanted:Qty: 2 on 10/09/2015 by Tor Stuart MD at [facility] Right: Hip ABDOULAYE:ORTHOPEDI CS [id number] / / Procedures Procedure Name Priority Date/Time [...] bone density assessment. Study was performed on [employer] APEX 5. Bone Density: Region BMD T-score Z-score [...] Advance Directives For more information, please contact: [phone] Documents on File Type Date Recorded Patient Eligibility Clerk Expl anation Advance Directives/DNR 10/13/2015 5:07 PM Advance Directives/DNR 10/08/2015 ADVANCE DIRECTIVE 10/08/2015 Advance Directives/DNR 05/09/2015 1:07 PM May 09 2015 17:07:10:975 GMT * Full Code (Latest Code Status on File) Date Activated Date Inactivated Comments 10/09/2015 7:51 PM 10/10/2015 9:59 PM Care Teams Copier Repair Technician Relationship Specialty Start Date End Date Cintia Hogan MD Physician Internal Medicine-Gastroenterology 07/07/16
[2025-08-09 10:18] LABS: Hematocrit 39.4 % (37.0-47.0); Hemoglobin 12.5 g/dL (12.2-16.2); Immature Granulocytes % 0.2 %; Mean Corpuscular HGB Conc 31.7 g/dL (31.8-35.4); Mean Corpuscular Hemoglobin 28.2 pg (27.0-31.2); Mean Corpuscular Volume 88.7 fl (81-99); Nucleated Red Blood Cells % 0 %; Platelet Count 224 K/mm3 (142-424); Red Blood Count 4.44 M/mm3 (4.20-5.40); Red Cell Distribution Width-SD 45.6 fL; White Blood Count 5.4 K/mm3 (4.8-10.8)
== END 2025-08-09 23:59 | disposition home or self-care (01) ==
LOC: LAB 09:59
PROVIDERS: PCP Family Medicine; Visit Provider Internal Medicine Medical Oncology
DX: D64.9 Anemia, unspecified (principal)
CPT/HCPCS: 36415; 85025